=== PATIENT | female | born 1940 | race Caucasian/White ===

== ENCOUNTER 2018-09-14 14:57 | Emergency (ER) | payer OTHER ==
[2018-09-14] MEDS ORDERED: HYDROCODONE/APAP 7.5/325 MG TAB ONE (17:13)
[2018-09-14 17:41] LABS: Absolute Lymphocytes (CBC) 2.6 K/uL (0.7-4.9); Absolute Monocytes 1.1 K/uL (0.1-1.3); Absolute Neutrophil 6.6 K/uL (1.8-8.0); Basophils % 0.8 % (0-1.3); Eosinophils % 2.9 % (0-4.4); Hematocrit 29.4 % (36.0-45.0); Lymphocytes % 24.1 % (15.3-44.8); MCH 27.1 pg (27.0-35.0); MCV 83.2 fL (80-100); MPV 8.5 fL (7.6-11.3); RBC Red Blood Cell Count 3.53 M/uL (3.86-4.86)
[2018-09-14 17:45] LABS: Potassium 4.7 mmol/L (3.5-5.1)
--- NOTE | 2018-09-14 18:05 | EDPHYS ---
Physician Documentation [facility] Name: Bonnie Good Age: 77 yrs Sex: Female : 1940 Arrival Date: 09/14/2018 Time: 14:58 Bed 2 Private MD: ED Physician Patrick Amin HPI: 09/14 17:13 This 77 yrs old Female presents to ER via Wheelchair with complaints of Femur jr8 Injury. 17:13 The patient presents with pain, that is acute, tenderness. The complaints affect the jr8 left quadriceps. Context: The problem was sustained at a [facility] or assisted living facility, resulted from the patient falling. Onset: The symptoms/episode began/occurred acutely, 4 day(s) ago. Modifying factors: The symptoms are alleviated by nothing. the symptoms are aggravated by movement. Associated signs and symptoms: The patient has no apparent associated signs or symptoms. Severity of symptoms: At their worst the symptoms were moderate, in the emergency department the symptoms are unchanged. The patient has not experienced similar symptoms in the past. The patient has not recently seen a physician. 17:14 Patient stated that she fell out of wheelchair onto her left knee directly. Pain since jr8 then with decreased ROM. Patient is a bilateral amputee. Was sent to ED for imaging and found to have femur fracture . Historical: - Allergies: 15:29 Aspirin; ph 15:29 PENICILLINS; ph - Home Meds: 18:40 Benadryl 25 mg Oral cap as needed [Active]; Cymbalta 60 mg Oral cpDR 1 cap twice a day iw [Active]; ergocalciferol (vitamin D2) 2,000 unit Oral tab daily [Active]; folic acid 1 mg Oral tab 1 tab once daily [Active]; Fosamax 70 mg Oral tab 1 tab once wkly [Active]; levothyroxine 75 mcg tab 1 tab once daily [Active]; multivit [Active]; Neurontin 800 mg Oral tab 1 tab 3 times per day [Active]; [place] 10-325 mg Oral tab 1 tab every 6 hours [Active]; Pepcid 20 mg Oral tab 1 tab once daily [Active]; potassium chloride 10 mEq Oral TbER 1 cap mon/wed/fri [Active]; vit D3 [Active]; Xanax 1 mg Oral tab 1 tab 3 times per day [Active]; zinc sulfate 220 mg Oral tab twice a day [Active]; - PMHx: 15:29 Anxiety; Cancer; neuropathy in hands; ph - PSHx: 15:29 right above the knee amputation; mouth CA removed; Cholecystectomy; Hysterectomy; Knee ph surgery; Breast biopsy; - Immunization history:: Adult Immunizations up to date. - Social history:: Smoking status: . - Ebola Screening: : Patient negative for fever greater than or equal to 101.5 degrees Fahrenheit, and additional compatible Ebola Virus Disease symptoms Patient denies exposure to infectious person Patient denies travel to an Ebola-affected area in the 21 days before illness onset No symptoms or risks identified at this time. ROS: 17:14 Constitutional: Negative for fever, chills, and weight loss. jr8 17:14 MS/extremity: Positive for decreased range of motion, pain, tenderness, of the left quadriceps. 17:14 All other systems are negative. Exam: 17:14 Head/Face: Normocephalic, atraumatic. Eyes: Pupils equal round and reactive to light, jr8 extra-ocular motions intact. Lids and lashes normal. Conjunctiva and sclera are non-icteric and not injected. Cornea within normal limits. Periorbital areas with no swelling, redness, or edema. ENT: Nares patent. No nasal discharge, no septal abnormalities noted. Tympanic membranes are normal and external auditory canals are clear. Oropharynx with no redness, swelling, or masses, exudates, or evidence of obstruction, uvula midline. Mucous membranes moist. Neck: Trachea midline, no thyromegaly or masses palpated, and no cervical lymphadenopathy. Supple, full range of motion without nuchal rigidity, or vertebral point tenderness. No Meningismus. Chest/axilla: Normal chest wall appearance and motion. Nontender with no deformity. No lesions are appreciated. Cardiovascular: Regular rate and rhythm with a normal S1 and S2. No gallops, murmurs, or rubs. Normal PMI, no JVD. No pulse deficits. Respiratory: Lungs have equal breath sounds bilaterally, clear to auscultation and percussion. No rales, rhonchi or wheezes noted. No increased work of breathing, no retractions or nasal flaring. Abdomen/GI: Soft, non-tender, with normal bowel sounds. No distension or tympany. No guarding or rebound. No evidence of tenderness throughout. Back: No spinal tenderness. No costovertebral tenderness. Full range of motion. Skin: Warm, dry with normal turgor. Normal color with no rashes, no lesions, and no evidence of cellulitis. Neuro: Awake and alert, GCS 15, oriented to person, place, time, and situation. Cranial nerves II-XII grossly intact. Motor strength 5/5 in all extremities. Sensory grossly intact. Cerebellar exam normal. Normal gait. 17:14 Musculoskeletal/extremity: Patients upper extremities within normal ROM and without pain or trauma. Left lower extremity with tenderness to mid femur region down to knee. Patient with normal sensation and motion. Pain with ROM. Left sided BKA present. Right leg with AKA but without pain. Normal sensation and ROM. Vital Signs: 15:29 BP 125 / 62; Pulse 71; Resp 18; Temp 97.8; Pulse Ox 95% on R/A; Weight 46.27 kg; ph 18:41 BP 123 / 50; Pulse 71; Resp 16; Pulse Ox 96% on R/A; Pain 5/10; iw 19:00 BP 120 / 60; Pulse 70; Resp 18; Temp 98; Pulse Ox 96% ; ea MDM: 16:28 Patient medically screened. jr8 17:14 Data reviewed: vital signs, nurses notes, radiologic studies, CT scan, plain films. jr8 Data interpreted: Pulse oximetry: on room air is 95 %. Interpretation: normal. Counseling: I had a detailed discussion with the patient and/or guardian regarding: the historical points, exam findings, and any diagnostic results supporting the discharge/admit diagnosis, radiology results, the need to transfer to another facility, for higher level of care, [facility] does not immediately have the required specialist. ED course: Consulted Dr. Perez about femur fracture. After reviewing images stated that the fracture is too complex to complete down here and will need to be transferred to trauma institute for further evaluation . 17:52 ED course: [facility] requesting Dr. Perez to Call them. I have attempted to Call Dr. Chris jaramillo to see if he can call the transfer center. Awaiting call by from Dr. Perez . 18:03 ED course: Talked to Dr. Nava at [place]. Accepted patient . jr8 09/14 17:14 Order name: CBC with Diff; Complete Time: 18:00 jr8 09/14 17:14 Order name: Basic Metabolic Panel; Complete Time: 17:51 jr8 09/14 17:14 Order name: IV; Complete Time: 17:53 jr8 Administered Medications: 17:08 Drug: [place] (7.5 mg-325 mg) 1 tabs Route: PO; iw 19:15 Follow up: Response: No adverse reaction; Pain is decreased ea 20:05 Drug: fentaNYL (PF) 25 mcg Route: IVP; Site: right wrist; ea 20:21 Follow up: Response: Medication administered at discharge. ea Disposition: 09/15 09:25 Co-signature as Attending Physician, Patrick Amin MD I agree with the assessment and ponce plan of care. Disposition: 09/14/18 18:05 Transfer ordered to [facility]. Diagnosis is Comminuted Distal Femur Fracture . - Reason for transfer: Higher level of care. - Accepting physician is Dr. Nava . - Condition is Stable. - Problem is new. - Symptoms have improved. Signatures: Dispatcher [employer] [facility] Patrick Amin MD MD cha Williams, Irene, RN RN Subhash Box PA PA jr8 Mariya Levy, RN RN Roselia Urias RN RN ea Corrections: (The following items were deleted from the chart) 09/14 17:37 17:05 Femur Left+RAD.RAD.BRZ ordered. [facility] 20:22 18:05 09/14/2018 18:05 Transfer ordered to [facility]. ea Diagnosis is Comminuted Distal Femur Fracture . Reason for transfer: Higher level of care. Accepting physician is Dr. Nava . Condition is Stable. Problem is new. Symptoms have improved. jr8
--- NOTE | 2018-09-14 18:05 | ER ---
Nurse's Notes [facility] Name: Bonnie Good Age: 77 yrs Sex: Female : 1940 Arrival Date: 09/14/2018 Time: 14:58 Bed 2 Private MD: Diagnosis: Comminuted Distal Femur Fracture Presentation: 09/14 15:25 Presenting complaint: Patient states: Pt fell approx 1 week ago at [facility], ph reports falling from wheelchair, sent today for outpatient CT and L femur fracture seen. Transition of care: patient was not received from another setting of care. Onset of symptoms was September 14, 2018. Risk Assessment: Do you want to hurt yourself or someone else? Patient reports no desire to harm self or others. Initial Sepsis Screen: Does the patient meet any 2 criteria? No. Patient's initial sepsis screen is negative. Does the patient have a suspected source of infection? No. Patient's initial sepsis screen is negative. Care prior to arrival: None. 15:25 Method Of Arrival: Wheelchair ph 15:25 Acuity: ANDREINA 3 ph Historical: - Allergies: 15:29 Aspirin; ph 15:29 PENICILLINS; ph - Home Meds: 18:40 Benadryl 25 mg Oral cap as needed [Active]; Cymbalta 60 mg Oral cpDR 1 cap twice a day iw [Active]; ergocalciferol (vitamin D2) 2,000 unit Oral tab daily [Active]; folic acid 1 mg Oral tab 1 tab once daily [Active]; Fosamax 70 mg Oral tab 1 tab once wkly [Active]; levothyroxine 75 mcg tab 1 tab once daily [Active]; multivit [Active]; Neurontin 800 mg Oral tab 1 tab 3 times per day [Active]; [place] 10-325 mg Oral tab 1 tab every 6 hours [Active]; Pepcid 20 mg Oral tab 1 tab once daily [Active]; potassium chloride 10 mEq Oral TbER 1 cap mon/wed/fri [Active]; vit D3 [Active]; Xanax 1 mg Oral tab 1 tab 3 times per day [Active]; zinc sulfate 220 mg Oral tab twice a day [Active]; - PMHx: 15:29 Anxiety; Cancer; neuropathy in hands; ph - PSHx: 15:29 right above the knee amputation; mouth CA removed; Cholecystectomy; Hysterectomy; Knee ph surgery; Breast biopsy; - Immunization history:: Adult Immunizations up to date. - Social history:: Smoking status: . - Ebola Screening: : Patient negative for fever greater than or equal to 101.5 degrees Fahrenheit, and additional compatible Ebola Virus Disease symptoms Patient denies exposure to infectious person Patient denies travel to an Ebola-affected area in the 21 days before illness onset No symptoms or risks identified at this time. Screenin:41 Abuse screen: Denies threats or abuse. Denies injuries from another. Nutritional iw screening: No deficits noted. Tuberculosis screening: No symptoms or risk factors identified. Fall Risk Fall in past 12 months (25 points). Assessment: 17:09 Reassessment: Patient appears in no apparent distress at this time. Patient and/or iw family updated on plan of care and expected duration. Pain level reassessed. Patient is alert, oriented x 3, equal unlabored respirations, skin warm/dry/pink. 18:41 Reassessment: Patient appears in no apparent distress at this time. Patient and/or iw family updated on plan of care and expected duration. Pain level reassessed. Patient is alert, oriented x 3, equal unlabored respirations, skin warm/dry/pink. Pain: Complains of pain in left quadriceps. 19:17 General: Appears in no apparent distress. Behavior is calm, cooperative, appropriate ea for age. Pain: Complains of pain in left quadriceps Pain currently is 4 out of 10 on a pain scale. Neuro: Level of Consciousness is awake, alert, obeys commands, Oriented to person, place, time, situation. Cardiovascular: Patient's skin is warm and dry. Respiratory: Airway is patent Respiratory effort is even, unlabored, Respiratory pattern is regular, symmetrical. GI: No signs and/or symptoms were reported involving the gastrointestinal system. Derm: Skin is fragile, Skin is pink, warm \T\ dry. Musculoskeletal: Pt has right and left BKA. 20:19 Reassessment: Patient and/or family updated on plan of care and expected duration. Pain ea level reassessed. Patient is alert, oriented x 3, equal unlabored respirations, skin warm/dry/pink. [facility] at facility for transfer. Pt left facility via stretcher. [facility] will be contacted to lease picker patients wheelchair. 20:39 Reassessment: Patient and/or family updated on plan of care and expected duration. Pain ea level reassessed. Patient is alert, oriented x 3, equal unlabored respirations, skin warm/dry/pink. Spoke to Alisa at [facility], about pt wheelchair. Reported he would have nurse take care of it. Vital Signs: 15:29 BP 125 / 62; Pulse 71; Resp 18; Temp 97.8; Pulse Ox 95% on R/A; Weight 46.27 kg; ph 18:41 BP 123 / 50; Pulse 71; Resp 16; Pulse Ox 96% on R/A; Pain 5/10; iw 19:00 BP 120 / 60; Pulse 70; Resp 18; Temp 98; Pulse Ox 96% ; ea ED Course: 14:58 Patient arrived in ED. as 15:28 Triage completed. ph 15:29 Arm band placed on Patient placed in an exam room. ph 15:52 Monica Lopes, JOLEEN is Primary Nurse. iw 16:28 Subhash Box PA is PHCP. jr8 16:28 Patrick Amin MD is Attending Physician. jr8 19:20 Patient has correct armband on for positive identification. Bed in low position. Call ea light in reach. Side rails up X2. 20:20 No provider procedures requiring assistance completed. Patient transferred, IV remains ea in place. Administered Medications: 17:08 Drug: [place] (7.5 mg-325 mg) 1 tabs Route: PO; iw 19:15 Follow up: Response: No adverse reaction; Pain is decreased ea 20:05 Drug: fentaNYL (PF) 25 mcg Route: IVP; Site: right wrist; ea 20:21 Follow up: Response: Medication administered at discharge. ea Outcome: 18:05 ER care complete, transfer ordered by . jr8 19:15 Instructed on the need for transfer. ea 20:21 Transferred by ground EMS to [facility], Transfer form completed. ea 20:21 Condition: stable 20:22 Patient left the ED. ea Signatures: Marielle Sharpe as Monica Lopes, JOLEEN RN iw Subhash Box PA PA jr8 Mariya Levy RN RN ph Roselia Urias RN RN ea Corrections: (The following items were deleted from the chart) 15:30 15:25 Acuity: ANDREINA 2 ph ph 19:20 19:17 Musculoskeletal: Amputation of ea ea
[2018-09-14] MEDS ORDERED: ONDANSETRON 4 MG/2 ML VIAL ONE (20:09)
[2018-09-14] MEDS ORDERED: FENTANYL CITR 100 MCG/2 ML ONE (20:10)
[2018-09-14 20:51] VITALS: O2SAT 96
[2018-09-14 20:52] VITALS: BP 120/60; TEMP 98
== END 2018-09-14 20:22 | disposition short-term general hospital (02) ==
LOC: ER 14:57
DX: S72.402A Unspecified fracture of lower end of left femur, initial encounter for closed fracture (principal); W05.0XXA Fall from non-moving wheelchair, initial encounter; Y92.199 Unspecified place in other specified residential institution as the place of occurrence of the external cause; F41.9 Anxiety disorder, unspecified; Z88.6 Allergy status to analgesic agent; Z88.0 Allergy status to penicillin; Z89.611 Acquired absence of right leg above knee; Z89.512 Acquired absence of left leg below knee
CPT/HCPCS: 36415; 73700; 80048; 85025; 96374; 99285; J3010; J2405

== ENCOUNTER 2018-12-14 16:16 | Inpatient (IN) | payer OTHER ==
--- OUTSIDE RECORDS SUMMARY | 2018-12-14 16:25 | XMS REPORT | CCD ---
:1940 Author Organization [facility] Care Team Providers Name Role Phone Federico Wisdom Referring Provider Allergies, Adverse Reactions, Alerts Substance Reaction Status aspirin Active penicillins Active Problem List Condition Effective Dates Status Bronchitis Resolved Heart disease Resolved Hypothyroid Resolved L AKA Resolved Left foot pain Resolved Pancreas Resolved Peripheral pulmonary artery disease Active Medications Medication Instructions Start Date End Date Status Plavix 75 mg, 1 tab, Route: PO, 04/27/2013 04/27/2013 Canceled Drug form: TAB, Daily, Dosing Weight 54.545, kg, Start date: 04/27/13 9:00:00, Duration: 30 day, Stop date: 05/26/13 9:00:00 folic acid 1 mg oral 1 mg, 1 tab, PO, Daily, 04/26/2013 Suspended tablet 30 tab, Substitution Allowed, TAB [place] 10/325 oral tablet 1 tab, Route: PO, Drug 04/26/2013 04/27/2013 Discontinued Form: TAB, Dosing Weight 54.545, kg, Q4H, PRN Pain, Start date: 04/26/13 11:52:00, Duration: 30 day, Stop date: 05/26/13 11:51:00 Melatonin 3 mg oral tablet 3 mg, 1 tab, PO, 04/26/2013 Suspended Bedtime, PRN, 60 tab, for insomnia, Substitution Allowed, Maintenance, TAB [place] 10/325 oral tablet 1 tab, PO, BID, PRN, as 04/26/2013 04/26/2013 Discontinued needed for pain, Substitution Allowed, Maintenance, TAB [place] 400 mg oral 400 mg, 1 tab, PO, 04/26/2013 Suspended tablet, extended release Daily, Substitution Allowed, TAB nitroglycerin 0.4 mg, SL, Q5Min, 04/26/2013 04/26/2013 Suspended Substitution Allowed, TAB Pepcid 20 mg oral tablet 20 mg, 1 tab, PO, Daily, 04/26/2013 Suspended Substitution Allowed, TAB [place] 10/325 oral tablet 1 tab, Route: PO, Drug 04/26/2013 04/26/2013 Completed Form: MARTIR, Dosing Weight 54.545, kg, ONCE, PRN Pain, Start date: 04/26/13 14:48:00 Tylenol 500 mg, PO, Q4H, PRN, as 04/26/2013 Suspended needed for pain, Substitution Allowed, TAB Plavix 75 mg oral tablet 75 mg, 1 tab, PO, Daily, 04/26/2013 Ordered 30 tab, Substitution Allowed, TAB [place] 10/325 oral tablet 1 tab, PO, BID, PRN, 30 04/26/2013 Ordered tab, as needed for pain, Substitution Allowed, Maintenance, TAB Skelaxin 800 mg oral 400 mg, 0.5 tab, PO, 04/26/2013 Suspended tablet QID, Substitution Allowed, TAB multivitamin 1 tab, PO, Daily, 04/26/2013 Suspended Substitution Allowed, Maintenance, TAB Neurontin 800 mg oral 800 mg, 1 tab, PO, TID, 04/26/2013 Suspended tablet 90 tab, Substitution Allowed Plavix 75 mg oral tablet 75 mg, 1 tab, PO, Daily, 04/26/2013 04/26/2013 Discontinued 30 tab, Substitution Allowed, TAB levothyroxine 75 mcg 75 microgram, 1 tab, PO, 04/26/2013 Suspended (0.075 mg) oral tablet Daily, 30 tab, Substitution Allowed, TAB Vital Signs Most recent to oldest 1 2 3 [Reference Range]: Height 180.34 cm (04/26/2013 08:05:00) Systolic Blood Pressure 125 mmHg 124 mmHg 140 mmHg [90-140 mmHg] (04/26/2013 16:45:00) (04/26/2013 16:00:00) (04/26/2013 15:30: 00) Diastolic Blood Pressure 55 mmHg 55 mmHg 64 mmHg [60-90 mmHg] *LOW* *LOW* (04/26/2013 15:30:00) (04/26/2013 16:45:00) (04/26/2013 16:00:00) Respiratory Rate [14-20 18 BRMIN 17 BRMIN 19 BRMIN BRMIN] (04/26/2013 16:45:00) (04/26/2013 16:00:00) (04/26/2013 15:30:00) Peripheral Pulse Rate 70 bpm 70 bpm [60-100 bpm] (04/26/2013 08:57:00) (04/26/2013 08:30:00) Weight 54.545 kg (04/26/2013 08:05:00) Results BLOOD BANK RESULTS Most recent to oldest [Reference Range]: 1 ABO/Rh A POS *Unknown* (04/26/2013 08:53:00) Antibody Scrn Negative (04/26/2013 08:53:00) CHEMISTRY Most recent to oldest [Reference Range]: 1 Sodium Lvl [135-145 mEq/L] 140 mEq/L (04/26/2013 08:20:00) Potassium Lvl [3.5-5.1 mEq/L] 3.9 mEq/L (04/26/2013 08:20:00) Chloride Lvl [95-109 mEq/L] 105 mEq/L (04/26/2013 08:20:00) CO2 [24-32 mEq/L] 32 mEq/L (04/26/2013 08:20:00) AGAP [10.0-20.0 mEq/L] 6.9 mEq/L *LOW* (04/26/2013 08:20:00) Creatinine Lvl [0.5-1.4 mg/dL] 0.6 mg/dL (04/26/2013 08:20:00) eGFR 91 mL/min/1.73m2 1 *NA* (04/26/2013 08:20:00) BUN [7-22 mg/dL] 7 mg/dL (04/26/2013 08:20:00) Glucose Lvl [70-99 mg/dL] 88 mg/dL 2 (04/26/2013 08:20:00) Calcium Lvl [8.5-10.5 mg/dL] 9.4 mg/dL (04/26/2013 08:20:00) Hgb A1C [<=5.6 %] 5.5 % 3 (04/26/2013 08:20:00) 1Result Comment: The eGFR is calculated using the CKD-EPI formula. In most young , healthy individualsthe eGFR will be >90 mL/min/1.73m2. The eGFR declines with age. An eGFR of 60-89 may be normal in some populations, particularly the elderly, for whom the CKD-EPI formula has not been extensively validated. Use of the eGFR is not recommended in the following populations: Individuals with unstable creatinine concentrations, including patients and those with serious co-morbid conditions. Patients with extremes in muscle mass or diet. The data above are obtained from the National Kidney Disease Education Program ( NKDEP) which additionally recommends that when the eGFR is used in patients with extremes of body mass index for purposesof drug dosing, the eGFR should be multiplied by the estimated BMI.2Interpretive Data: Adult reference range values reflect the clinical guidelines of the [place] [employer].3Interpretive Data: The reference range is based on the clinical practice guidelines of the [place] [employer] for diabetes screening; levels of 5.7%-6.4% are indicative of pre-diabetes.HEMATOLOGY Most recent to oldest [Reference Range]: 1 WBC [3.7-10.4 K/CMM] 6.6 K/CMM (04/26/2013 08:20:00) RBC [4.20-5.40 M/CMM] 4.15 M/CMM *LOW* (04/26/2013 08:20:00) Hgb [12.0-16.0 g/dL] 12.7 g/dL (04/26/2013 08:20:00) Hct [36.0-48.0 %] 37.5 % (04/26/2013 08:20:00) MCV [81.0-99.0 fL] 90.5 fL (04/26/2013 08:20:00) MCH [27.0-31.0 pg] 30.5 pg (04/26/2013:20:00) MCHC [32.0-36.0 g/dL] 33.8 g/dL (04/26/2013 08:20:00) RDW [11.5-14.5 %] 13.4 % (04/26/2013:20:00) Platelet [133-450 K/CMM] 274 K/CMM (04/26/2013 08:20:00) MPV [7.4-10.4 fL] 7.7 fL (04/26/2013 08:20:00) Segs [45.0-75.0 %] 62.4 % (04/26/2013 08:20:00) Lymphocytes [20.0-40.0 %] 23.3 % (04/26/2013 08:20:00) Monocytes [2.0-12.0 %] 9.3 % (04/26/2013 08:20:00) Eosinophils [0.0-4.0 %] 3.8 % (04/26/2013 08:20:00) Basophils [0.0-1.0 %] 1.2 % *HI* (04/26/2013 08:20:00) Segs-Bands # [1.5-8.1 K/CMM] 4.1 K/CMM (04/26/2013 08:20:00) Lymphocytes # [1.0-5.5 K/CMM] 1.5 K/CMM (04/26/2013 08:20:00) Monocytes # [0.0-0.8 K/CMM] 0.6 K/CMM (04/26/2013 08:20:00) Eosinophils # [0.0-0.5 K/CMM] 0.2 K/CMM (04/26/2013 08:20:00) Basophils # [0.0-0.2 K/CMM] 0.1 K/CMM (04/26/2013 08:20:00) PT [12.0-14.7 seconds] 13.2 seconds (04/26/2013 08:20:00) INR [0.85-1.17] 0.98 4 (04/26/2013 08:20:00) PTT [22.9-35.8 seconds] 27.9 seconds 5 (04/26/2013 08:20:00) 4Interpretive Data: RECOMMENDED RANGES FOR PROTIME INR: 2.0-3.0 for most medical and surgical thromboembolic states. 2.5-3.5 for artificial heart valves and recurrent embolism. INR SHOULD BE USED ONLY FOR PATIENTS ON STABLE ANTICOAGULANT THERAPY.5Interpretive Data: Heparin Therapeutic Range: 57 - 92 Seconds Procedures Procedures Date Related Diagnosis AKA - Above knee amputation Breast biopsy and related procedures Cataract surgery Cervical laminectomy Cystectomy Hysterectomy Mouth operation Pain control
--- OUTSIDE RECORDS SUMMARY | 2018-12-14 16:25 | XMS REPORT | CCD ---
:1940 Author Organization [facility] Care Team Providers Name Role Phone Federico Whitley Referring Provider Allergies, Adverse Reactions, Alerts Substance Reaction Status aspirin Active penicillins Active Problem List Condition Effective Dates Status AKA - Above knee amputation1 Resolved Bronchitis Resolved Heart disease Resolved Hypothyroid Resolved Left foot pain Resolved Pancreas Resolved Peripheral pulmonary artery disease Active PVD - Peripheral vascular disease Resolved 1right Medications Medication Instructions Start Date End Date Status fentanyl 50 microgram, 1 mL, Route: IVP, Drug form: INJ, Q4H, Dosing Weight 50 , kg, PRN as needed for pain, first dose now, Priority: STAT, Start date: 17:44:00, Duration: 30 day, Stop date: 01/28/14 17:43:00, Pediatric Dosing; For procedure; > 50 kg 12/29/2013 12/30/2013 Discontinued Pediatric Dosing; For procedure; > 50 kg(Same as: Sublimaze) Preservative free. potassium chloride 10 mEq, Daily, 0 12/27/2013 Ordered Refill(s) tramadol 50 mg oral 50 mg=1 tab, PO, Q6H, as 12/30/2013 Ordered tablet needed for pain, # 30 tab, 0 Refill(s) docusate sodium 100 mg 100 mg=1 cap, PO, BID, # 12/30/2013 Ordered oral capsule 60 cap, 0 Refill(s) Atkins 10/325 oral tablet 1 tab, Route: PO, Drug 12/27/2013 12/27/2013 Completed Form: TAB, Dosing Weight 50, kg, ONCE, Start date: 12/27/13 21:45:00, Stop date: 12/27/13 21:45:00Do not exceed 4gm/day of acetaminophen. (Same as: Atkins 325/10) clopidogrel 75 mg oral 75 mg=1 tab, PO, Daily, # 12/27/2013 Ordered tablet 90 tab, 0 Refill(s) zinc sulfate 220 mg oral 220 mg=1 tab, PO, Daily, 12/27/2013 Ordered tablet # 100 tab, 0 Refill(s) fentanyl 25 microgram, 0.5 mL, 12/29/2013 12/29/2013 Completed Route: IV, Drug form: INJ, ONCE, Dosing Weight 50, kg, Start date: 12/29/13 3:34:00, Stop date: 12/29/13 3:34:00(Same as: Sublimaze) Preservative free. Vitamin C 0 Refill(s) 12/27/2013 Ordered Lyrica 50 mg oral capsule 50 mg=1 cap, PO, Bedtime, 12/27/2013 Ordered 0 Refill(s) Vitamin C 500 mg, 1 tab, Route: PO, 12/28/2013 12/30/2013 Discontinued Drug form: TAB, Daily, Start date: 12/28/13 9:00:00, Duration: 30 day, Stop date: 01/26/14 9:00:00(Same as: Vitamin C) Fosamax 70 mg oral tablet 70 mg=1 tab, PO, Q7D, # 12/27/2013 Ordered 12 tab, 0 Refill(s) Dulcolax Laxative 10 mg, 2 tab, Route: PO, 12/29/2013 12/30/2013 Discontinued Drug form: ECTAB, Daily, Dosing Weight 50, kg, Start date: 12/29/13 9:00:00, Duration: 30 day, Stop date: 01/27/14 9:00:00(Same As: Dulcolax, Correctol) (Do Not Crush) "Do Not Crush" Melatonin 3 mg oral 3 mg, 1 tab, Route: PO, 12/27/2013 12/30/2013 Discontinued tablet Drug Form: TAB, Dosing Weight 50, kg, Bedtime, PRN Insomnia, Start date: 12/27/13 12:01:00, Duration: 30 day, Stop date: 01/26/14 12:00:00(Same as: Melatonin) Non-Formulary Drug pentoxifylline 400 mg, 1 tab, Route: PO, 12/28/2013 12/30/2013 Discontinued Drug form: ERTAB, Daily, Dosing Weight 50, kg, Start date: 12/28/13 9:00:00, Duration: 30 day, Stop date: 01/26/14 9:00:00Non-Formulary Drug. Do not crush or chew.(Same as: Trental) nitroglycerin 0.4 mg, 1 tab, Route: SL, 12/27/2013 12/30/2013 Discontinued Drug form: TAB, Q5Min, Dosing Weight 50, kg, PRN Chest Pain, Start date: 12/27/13 12:05:00, Duration: 3 doses or times, Stop date: 01/26/14 0:00:00(Same as:Nitroquick, Nitrostat)"Do Not Crush" Sublingual tablet trazodone 50 mg oral 50 mg, 1 tab, Route: PO, 12/27/2013 12/30/2013 Discontinued tablet Drug form: TAB, Bedtime, Dosing Weight 50, kg, Start date: 12/27/13 21:00:00, Duration: 30 day, Stop date: 01/25/14 21:00:00(Same As: Desyrel) zinc sulfate 220 mg, 1 cap, Route: PO, 12/28/2013 12/30/2013 Discontinued Drug form: CAP, Daily, Dosing Weight 50, kg, Start date: 12/28/13 9:00:00, Duration: 30 day, Stop date: 01/26/14 9:00:00(Zinc sulfate capsule) - 220 mg Zinc sulfate=50 mg elemental zinc Same as Zinc Sulfate Lyrica 50 mg, 1 cap, Route: PO, 12/27/2013 12/30/2013 Discontinued Drug form: CAP, Bedtime, Dosing Weight 50, kg, Start date: 12/27/13 21:00:00, Duration: 30 day, Stop date: 01/25/14 21:00:00Same as Lyrica potassium chloride 10 mEq, 1 tab, Route: PO, 12/28/2013 12/30/2013 Discontinued Drug form: ERTAB, Daily, Dosing Weight 50, kg, Start date: 12/28/13 9:00:00, Duration: 30 day, Stop date: 01/26/14 9:00:00(Same as: Klor-Con 10)"Do Not Crush" With food and full glass of water Creon 24,000 units oral 1 cap, Route: PO, Drug 12/27/2013 12/30/2013 Discontinued delayed release capsule Form: DRC, Dosing Weight 50, kg, TID, Start date: 12/27/13 13:00:00, Duration: 30 day, Stop date: 01/26/14 9:00:00Same as: Credenton DRC 24 : Amylase 120,000 units - Lipase 24,000 units - Protease 76,000 units multivitamin 1 tab, Route: PO, Drug 12/28/2013 12/30/2013 Discontinued Form: TAB, Dosing Weight 50, kg, Daily, Start date: 12/28/13 9:00:00, Duration: 30 day, Stop date: 01/26/14 9:00:00(Same as:Thera) Take with food. Fosamax 10 mg, 1 tab, Route: PO, 12/28/2013 12/30/2013 Discontinued Drug form: TAB, Q630AM, Start date: 12/28/13 6:30:00, Duration: 30 day, Stop date: 01/26/14 6:30:00Give 30 min before breakfast w/6oz water. Sit upright for 30 min after dose."Do Not Crush" (Same as: Fosamax) Xanax 1 mg oral tablet 1 mg=1 tab, PO, TID, 0 12/27/2013 Ordered Refill(s) Skelaxin 400 mg, 0.5 tab, Route: 12/27/2013 12/30/2013 Discontinued PO, Drug form: TAB, QID, Dosing Weight 50, kg, Start date: 12/27/13 13:00:00, Duration: 30 day, Stop date: 01/26/14 9:00:00(Same as: Skelaxin) levothyroxine 75 microgram, 1 tab, 12/28/2013 12/30/2013 Discontinued Route: PO, Drug form: TAB, Q630AM, Dosing Weight 50, kg, Start date: 12/28/13 6:30:00, Duration: 30 day, Stop date: 01/26/14 6:30:00Take 1 hour before or 2 hours after meal; Enteral feeds may interefere with the absorption of this medication. (Same as:Synthroid, Levothroid) Neurontin 800 mg oral 800 mg, 2 cap, Route: PO, 12/27/2013 12/30/2013 Discontinued tablet Drug form: CAP, TID, Dosing Weight 50, kg, Start date: 12/27/13 13:00:00, Duration: 30 day, Stop date: 01/26/14 9:00:00(Same as: Neurontin) folic acid 1 mg, 1 tab, Route: PO, 12/28/2013 12/30/2013 Discontinued Drug form: TAB, Daily, Dosing Weight 50, kg, Start date: 12/28/13 9:00:00, Duration: 30 day, Stop date: 01/26/14 9:00:00(Same as: Folvite) Pepcid 20 mg oral tablet 20 mg, 1 tab, Route: PO, 12/28/2013 12/30/2013 Discontinued Drug form: TAB, Daily, Dosing Weight 50, kg, Start date: 12/28/13 9:00:00, Duration: 30 day, Stop date: 01/26/14 9:00:00(Same as: Pepcid) Cymbalta 60 mg, 1 cap, Route: PO, 12/27/2013 12/30/2013 Discontinued Drug form: DRC, Q12H, Dosing Weight 50, kg, Start date: 12/27/13 21:00:00, Duration: 30 day, Stop date: 01/26/14 9:00:00Non Formulary Drug(Same as: Cymbalta) (Do Not Crush) calcium-vitamin D 500 1 tab, Route: PO, Drug 12/28/2013 12/30/2013 Discontinued mg-400 intl units oral Form: CHEWTAB, Dosing tablet, chewable Weight 50, kg, Daily, Start date: 12/28/13 9:00:00, Duration: 30 day, Stop date: 01/26/14 9:00:00(calcium carbonate-vit D 500mg-400unit chew TAB) Same as: Oscal 500+D clopidogrel 75 mg, 1 tab, Route: PO, 12/28/2013 12/30/2013 Discontinued Drug form: TAB, Daily, Dosing Weight 50, kg, Start date: 12/28/13 9:00:00, Duration: 30 day, Stop date: 01/26/14 9:00:00(Same As: Plavix) Vitamin C 50 mg, Route: CHEW, 12/28/2013 12/27/2013 Discontinued Daily, Dosing Weight 50, kg, Start date: 12/28/13 9:00:00, Duration: 30 day, Stop date: 01/26/14 9:00:00 Xanax 1 mg oral tablet 1 mg, 1 tab, Route: PO, 12/27/2013 12/30/2013 Discontinued Drug form: TAB, TID, Dosing Weight 50, kg, PRN Anxiety, Start date: 12/27/13 12:50:00, Duration: 30 day, Stop date: 01/26/14 12:49:00With food or milk(Same as: Xanax) Fosamax 70 mg, Route: PO, Drug 12/27/2013 12/27/2013 Discontinued form: TAB, Q7D, Dosing Weight 50, kg, Start date: 12/27/13 12:00:00, Duration: 30 day, Stop date: 01/24/14 9:00:00 melatonin 3 mg oral 3 mg=1 tab, PO, Bedtime, 12/27/2013 Ordered tablet for insomnia, # 60 tab, 0 Refill(s) Lovenox 40 mg, 0.4 mL, Route: 12/28/2013 12/30/2013 Discontinued SUB-Q, Drug form: INJ, [id number], Dosing Weight 50, kg, Start date: 12/28/13 18:00:00, Duration: 30 day, Stop date: 01/26/14 18:00:00(Same as: Lovenox) hydrALAZINE 10 mg, 0.5 mL, Route: 12/27/2013 12/27/2013 Discontinued IVP, Drug form: INJ, Q20Min, Dosing Weight 50, kg, PRN Elevated BP, Start date: 12/27/13 12:05:00, Duration: 2 doses or times, Stop date: 12/27/13 23:59:00(Same as: Apresoline)Push over 5 minutes enalaprilat 0.625 mg, 0.5 mL, Route: 12/27/2013 12/27/2013 Discontinued IVP, Drug form: INJ, Q5Min, Dosing Weight 50, kg, PRN Elevated BP, Start date: 12/27/13 12:05:00, Duration: 4 doses or times, Stop date: 12/27/13 23:59:00(Same as: Vasotec-IV) metoprolol 1 mg, 1 mL, Route: IVP, 12/27/2013 12/27/2013 Discontinued Drug form: INJ, Q5Min, Dosing Weight 50, kg, PRN Other -See Comment, Start date: 12/27/13 12:05:00, Duration: 5 doses or times, Stop date: 12/27/13 23:59:00(Same as: Lopressor)Push over 2 minutes fentanyl 50 microgram, 1 mL, 12/27/2013 12/27/2013 Discontinued Route: IVP, Drug form: INJ, Q5Min, Dosing Weight 50, kg, PRN Pain Score 7-10, Start date: 12/27/13 12:05:00, Duration: 2 doses or times, Stop date: Limited # of times(Same as: Sublimaze) Preservative free. naloxone 0.04 mg, 0.1 mL, Route: 12/27/2013 12/27/2013 Discontinued IVP, Drug form: INJ, Q2MIN, Dosing Weight 50, kg, PRN Narcotic Reversal, Start date: 12/27/13 12:05:00, Duration: 8 doses or times, Stop date: 12/27/13 23:59:00(Same as: Narcan) hydromorphone 0.5 mg, 0.25 mL, Route: 12/27/2013 12/27/2013 Discontinued IVP, Drug form: INJ, Q5Min, Dosing Weight 50, kg, PRN Pain Score 7-10, Start date: 12/27/13 12:05:00, Duration: 4 doses or times, Stop date: 12/27/13 23:59:00Same as: Dilaudid flumazenil 0.2 mg, 2 mL, Route: IVP, 12/27/2013 12/27/2013 Discontinued Drug form: INJ, PRN, Dosing Weight 50, kg, PRN Benzodiazepine Reversal, Initial dose, Start date: 12/27/13 12:05:00, Stop date: 12/27/13 23:59:00(Same as: Romazicon) ondansetron 4 mg, 2 mL, Route: IVP, 12/27/2013 12/27/2013 Discontinued Drug form: INJ, ONCE, Dosing Weight 50, kg, PRN Nausea & Vomiting, Start date: 12/27/13 12:05:00(Same as: Zofran) Cymbalta 60 mg oral 60 mg=1 cap, PO, BID, # 12/27/2013 Ordered delayed release capsule 30 cap, 0 Refill(s) fentanyl 25 microgram, 0.5 mL, 12/28/2013 12/28/2013 Discontinued Route: IV, Drug form: INJ, ONCE, Dosing Weight 50, kg, Start date: 12/28/13 22:40:00, Stop date: 12/28/13 22:40:00(Same as: Sublimaze) Preservative free. fentanyl 25 microgram, 0.5 mL, 12/28/2013 12/28/2013 Completed Route: IV, Drug form: INJ, ONCE, Dosing Weight 50, kg, Start date: 12/28/13 22:38:00, Stop date: 12/28/13 22:38:00(Same as: Sublimaze) Preservative free. ceFAZolin 2 gm, Route: IVPB, ONCE, 12/27/2013 12/27/2013 Completed Dosing Weight 50, kg, Start date: 12/27/13 10:28:00, Duration: 1 doses or times, Stop date: 12/27/13 10:28:00 docusate 100 mg, 1 cap, Route: PO, 12/27/2013 12/30/2013 Discontinued Drug form: CAP, BID, Dosing Weight 50, kg, Start date: 12/27/13 17:00:00, Duration: 30 day, Stop date: 01/26/14 9:00:00(Same as: Colace) (Do Not Crush) ondansetron 4 mg, 2 mL, Route: IVP, 12/27/2013 12/30/2013 Discontinued Drug form: INJ, ONCE, Dosing Weight 50, kg, PRN Nausea & Vomiting, Start date: 12/27/13 11:59:00(Same as: Zofran) acetaminophen 650 mg, 2 tab, Route: PO, 12/27/2013 12/30/2013 Discontinued Drug form: TAB, Q4H, Dosing Weight 50, kg, PRN Pain 1-3/Temp > 100.4 F, Start date: 12/27/13 11:59:00, Duration: 30 day, Stop date: 01/26/14 11:58:00Do not exceed 4 gm/day. (Same as: Tylenol) trazodone 50 mg oral 50 mg=1 tab, PO, QPM, # 12/27/2013 Ordered tablet 90 tab, 0 Refill(s) tramadol 50 mg oral 50 mg, 1 tab, Route: PO, 12/27/2013 12/30/2013 Discontinued tablet Drug form: TAB, Q6H, Dosing Weight 50, kg, PRN as needed for pain, Start date: 12/27/13 18:58:00, Duration: 30 day, Stop date: 01/26/14 18:57:00Not to exceed 400mg/day. (Same As: Ultram) Creon 24,000 units oral 0 Refill(s) 12/27/2013 Ordered delayed release capsule calcium-vitamin D 600 1 tab, PO, Daily, # 60 12/27/2013 Ordered mg-400 intl units oral tab, 0 Refill(s) tablet Vital Signs Most recent to oldest 1 2 3 [Reference Range]: Height 160.02 cm (12/27/2013 15:28:00) Temperature Oral 98.9 DegF 98.7 DegF 99.3 DegF [96.4-99.1 DegF] (12/30/2013 11:09:00) (12/30/2013 09:40:00) *HI* (12/30/2013 07:10:00) Systolic Blood Pressure 106 mmHg 110 mmHg 111 mmHg [90-140 mmHg] (12/30/2013 11:49:00) (12/30/2013 09:40:00) (12/30/2013 06:00: 00) Diastolic Blood Pressure 59 mmHg 52 mmHg 51 mmHg [60-90 mmHg] *LOW* *LOW* *LOW* (12/30/2013 11:49:00) (12/30/2013 09:40:00) (12/30/2013 06:00:00) Respiratory Rate [14-20 20 BRMIN 18 BRMIN 18 BRMIN BRMIN] (12/30/2013 11:49:00) (12/30/2013 04:00:00) (12/30/2013 02:00:00) Peripheral Pulse Rate 108 bpm [60-100 bpm] *HI* (12/27/2013 09:00:00) Weight 50 kg 50 kg (12/27/2013 15:28:00) (12/27/2013 09:28:00) Results BEDSIDE GLUCOSE TESTING Most recent to oldest 1 2 3 [Reference Range]: Glucose POC [70-99 116 mg/dL 1 103 mg/dL 2 127 mg/dL 3 mg/dL] *HI* *HI* *HI* (12/30/2013 12:03:00) (12/30/2013 07:55:00) (12/29/2013 20:41:00) Gluc POC Comment 1 Notified RN/MD Notified RN/MD Notified RN/MD *NA* *NA* *NA* (12/29/2013 20:41:00) (12/28/2013 07:40:00) (12/27/2013 22:40:00) 1Interpretive Data: Upper Reportable Limit: 200 mg/dL.2Interpretive Data: Upper Reportable Limit: 200 mg/dL.3Interpretive Data: Upper Reportable Limit: 200 mg/dL.URINALYSIS Most recent to oldest [Reference Range]: 1 2 3 UA Turbidity [Clear] Slight Cloudy (12/27/2013 12:40:12) UA Color [Yellow] Yellow *NA* (12/27/2013 12:40:12) UA pH [5.0-8.0] 6.0 (12/27/2013 12:40:12) UA Spec Grav [<=1.030] 1.010 (12/27/2013 12:40:12) UA Glucose [Negative] Negative (12/27/2013 12:40:12) UA Blood [Negative] Large *ABN* (12/27/2013 12:40:12) UA Ketones [Negative] Negative *NA* (12/27/2013 12:40:12) UA Protein [Negative mg/dL] 100 mg/dL *ABN* (12/27/2013 12:40:12) UA Urobilinogen [0.1-1.0 EU/dL] 0.2 EU/dL (12/27/2013 12:40:12) UA Bili [Negative] Negative *NA* (12/27/2013 12:40:12) UA Leuk Est [Negative] Moderate *ABN* (12/27/2013 12:40:12) UA Nitrite [Negative] Negative (12/27/2013 12:40:12) UA WBC [0-5 /HPF] 3-5 /HPF (12/27/2013 12:40:12) UA RBC [0-2 /HPF] 3-5 /HPF *ABN* (12/27/2013 12:40:12) UA Bacteria [None Seen /HPF] Moderate /HPF *ABN* (12/27/2013 12:40:12) UA Sq Epi [Few /LPF] Occasional /LPF (12/27/2013 12:40:12) UA Mucus [None Seen /LPF] Few /LPF (12/27/2013 12:40:12) BLOOD BANK RESULTS Most recent to oldest [Reference Range]: 1 2 3 ABO/Rh A POS *Unknown* (12/27/2013 09:09:00) Antibody Scrn Negative (12/27/2013 09:09:00) CHEMISTRY Most recent to oldest 1 2 3 [Reference Range]: Sodium Lvl [135-145 mEq/L] 136 mEq/L 132 mEq/L 133 mEq/L (12/29/2013 03:30:00) *LOW* *LOW* (12/28/2013 12:35:00) (12/27/2013 08:45:00) Potassium Lvl [3.5-5.1 4.4 mEq/L 4.5 mEq/L 5.3 mEq/L mEq/L] (12/29/2013 03:30:00) (12/28/2013 12:35:00) *HI* (12/27/2013 08:45:00) Chloride Lvl [95-109 mEq/L] 99 mEq/L 96 mEq/L 97 mEq/L (12/29/2013 03:30:00) (12/28/2013 12:35:00) (12/27/2013 08:45:00) CO2 [24-32 mEq/L] 27 mEq/L 28 mEq/L 31 mEq/L (12/29/2013 03:30:00) (12/28/2013 12:35:00) (12/27/2013 08:45:00) AGAP [10.0-20.0 mEq/L] 14.4 mEq/L 12.5 mEq/L 10.3 mEq/L (12/29/2013 03:30:00) (12/28/2013 12:35:00) (12/27/2013 08:45:00) Creatinine Lvl [0.5-1.4 0.4 mg/dL 0.6 mg/dL 0.7 mg/dL mg/dL] *LOW* (12/28/2013 12:35:00) (12/27/2013 08:45:00) (12/29/2013 03:30:00) eGFR 103 mL/min/1.73m2 4 90 mL/min/1.73m2 5 86 mL/min/1.73m2 6 *NA* *NA* *NA* (12/29/2013 03:30:00) (12/28/2013:35:00) (12/27/2013 08:45:00) BUN [7-22 mg/dL] 10 mg/dL 15 mg/dL 18 mg/dL (12/29/2013:30:00) (12/28/2013:35:00) (12/27/2013 08:45:00) B/C Ratio [6-25] 26 *HI* (12/27/2013 08:45:00) Glucose Lvl [70-99 mg/dL] 73 mg/dL 7 81 mg/dL 8 76 mg/dL 9 (12/29/2013:30:00) (12/28/2013 12:35:00) (12/27/2013 08:45:00) Total Protein [6.4-8.4 6.3 g/dL g/dL] *LOW* (12/27/2013 08:45:00) Albumin Lvl [3.5-5.0 g/dL] 2.2 g/dL *LOW* (12/27/2013 08:45:00) Globulin [2.0-4.0 g/dL] 4.1 g/dL *HI* (12/27/2013 08:45:00) A/G Ratio [0.7-1.6] 0.5 *LOW* (12/27/2013 08:45:00) Calcium Lvl [8.5-10.5 8.1 mg/dL 8.7 mg/dL 9.3 mg/dL mg/dL] *LOW* (12/28/2013 12:35:00) (12/27/2013 08:45:00) (12/29/2013 03:30:00) Phosphorus [2.5-4.5 mg/dL] 2.6 mg/dL 3.1 mg/dL (12/29/2013 03:30:00) (12/28/2013 12:35:00) Magnesium Lvl [1.8-2.4 1.7 mg/dL 1.7 mg/dL mg/dL] *LOW* *LOW* (12/29/2013:30:00) (12/28/2013 12:35:00) ALT [0-65 unit/L] 15 unit/L (12/27/2013:45:00) AST [0-37 unit/L] 21 unit/L (12/27/2013:45:00) Alk Phos [39-136 unit/L] 120 unit/L (12/27/2013:45:00) Bili Total [0.2-1.3 mg/dL] 0.4 mg/dL (12/27/2013:45:00) Hgb A1C [<=5.6 %] 4.4 % (12/27/2013:45:00) 4Result Comment: The eGFR is calculated using the [...] eGFR should be multiplied by the estimated BMI.5Result Comment: The eGFR is calculated using the CKD-EPI formula. In most young, healthy individualsthe eGFR will be >90 mL/ min/1.73m2. The eGFR declines with age. An eGFR [...] eGFR should be multiplied by the estimated BMI.6Result Comment: The eGFR is calculated using the CKD-EPI formula. In most young, healthy individualsthe eGFR will be >90 mL/ min/1.73m2. The eGFR declines with age. An eGFR [...] eGFR should be multiplied by the estimated BMI.7Interpretive Data: Adult reference range values reflect the clinical guidelines of the [place] [employer].8Interpretive Data: Adult reference range values reflect the clinical guidelines of the [place] [employer].9Interpretive Data: Adult reference range values reflect the clinical guidelines of the [place] [employer].HEMATOLOGY Most recent to oldest 1 2 3 [Reference Range]: WBC [3.7-10.4 K/CMM] 7.4 K/CMM 10.6 K/CMM 13.6 K/CMM (12/29/2013 03:30:00) *HI* *HI* (12/28/2013 12:35:00) (12/27/2013 12:40:07) RBC [4.20-5.40 M/CMM] 3.80 M/CMM 4.08 M/CMM 3.69 M/CMM *LOW* *LOW* *LOW* (12/29/2013 03:30:00) (12/28/2013 12:35:00) (12/27/2013 12:40:07) Hgb [12.0-16.0 g/dL] 11.2 g/dL 11.7 g/dL 10.5 g/dL *LOW* *LOW* *LOW* (12/29/2013 03:30:00) (12/28/2013 12:35:00) (12/27/2013 12:40:07) Hct [36.0-48.0 %] 33.5 % 35.9 % 32.3 % *LOW* *LOW* *LOW* (12/29/2013 03:30:00) (12/28/2013 12:35:00) (12/27/2013 12:40:07) MCV [81.0-99.0 fL] 88.1 fL 88.0 fL 87.4 fL (12/29/2013 03:30:00) (12/28/2013 12:35:00) (12/27/2013 12:40:07) MCH [27.0-31.0 pg] 29.5 pg 28.8 pg 28.5 pg (12/29/2013 03:30:00) (12/28/2013 12:35:00) (12/27/2013 12:40:07) MCHC [32.0-36.0 g/dL] 33.4 g/dL 32.7 g/dL 32.6 g/dL (12/29/2013 03:30:00) (12/28/2013 12:35:00) (12/27/2013 12:40:07) RDW [11.5-14.5 %] 17.4 % 17.8 % 16.8 % *HI* *HI* *HI* (12/29/2013 03:30:00) (12/28/2013 12:35:00) (12/27/2013 12:40:07) Platelet [133-450 K/CMM] 306 K/CMM 336 K/CMM 297 K/CMM (12/29/2013 03:30:00) (12/28/2013 12:35:00) (12/27/2013 12:40:07) MPV [7.4-10.4 fL] 7.9 fL 8.0 fL 7.5 fL (12/29/2013 03:30:00) (12/28/2013 12:35:00) (12/27/2013 12:40:07) Segs [45.0-75.0 %] 62.9 % 84.5 % 81.3 % (12/29/2013 03:30:00) *HI* *HI* (12/28/2013 12:35:00) (12/27/2013 12:40:07) Lymphocytes [20.0-40.0 %] 24.8 % 4.8 % 12.6 % (12/29/2013 03:30:00) *LOW* *LOW* (12/28/2013 12:35:00) (12/27/2013 12:40:07) Monocytes [2.0-12.0 %] 10.6 % 6.5 % 4.3 % (12/29/2013 03:30:00) (12/28/2013 12:35:00) (12/27/2013 12:40:07) Eosinophils [0.0-4.0 %] 1.2 % 1.9 % 0.9 % (12/29/2013 03:30:00) (12/28/2013 12:35:00) (12/27/2013 12:40:07) Basophils [0.0-1.0 %] 0.5 % 2.3 % 0.9 % (12/29/2013 03:30:00) *HI* (12/27/2013 12:40:07) (12/28/2013 12:35:00) Segs-Bands # [1.5-8.1 4.7 K/CMM 8.9 K/CMM 11.0 K/CMM K/CMM] (12/29/2013 03:30:00) *HI* *HI* (12/28/2013 12:35:00) (12/27/2013 12:40:07) Lymphocytes # [1.0-5.5 1.8 K/CMM 0.5 K/CMM 1.7 K/CMM K/CMM] (12/29/2013 03:30:00) *LOW* (12/27/2013 12:40:07) (12/28/2013 12:35:00) Monocytes # [0.0-0.8 K/CMM] 0.8 K/CMM 0.7 K/CMM 0.6 K/CMM (12/29/2013 03:30:00) (12/28/2013 12:35:00) (12/27/2013 12:40:07) Eosinophils # [0.0-0.5 0.1 K/CMM 0.2 K/CMM 0.1 K/CMM K/CMM] (12/29/2013 03:30:00) (12/28/2013 12:35:00) (12/27/2013 12:40:07) Basophils # [0.0-0.2 K/CMM] 0.2 K/CMM 0.1 K/CMM 0.1 K/CMM (12/28/2013 12:35:00) (12/27/2013 12:40:07) (12/27/2013 08:45:00) Polychrom [None Seen] Slight (12/28/2013 12:35:00) Elliptocyte [None Seen] Slight *ABN* (12/28/2013 12:35:00) Plt Morph See Note 10 (12/28/2013 12:35:00) PT [12.0-14.7 seconds] 13.1 seconds (12/27/2013 09:12:00) INR [0.85-1.17] 1.00 11 (12/27/2013 09:12:00) PTT [22.9-35.8 seconds] 27.7 seconds 12 (12/27/2013 09:12:00) 10Result Comment: Due to occassional clumps, the actual count may be slightly higher.11Interpretive Data: RECOMMENDED RANGES FOR PROTIME INR: 2.0-3.0 for most medical and surgical thromboembolic states. 2.5-3.5 for artificial heart valves and recurrent embolism. INR SHOULD BE USED ONLY FOR PATIENTS ON STABLE ANTICOAGULANT THERAPY.12Interpretive Data: Heparin Therapeutic Range: 57 - 92 Seconds Microbiology Reports PROCEDURE:Culture: Urine STATUS: Auth (Verified) BODY SITE: COLLECTED DATE/TIME: 12/27/2013 14:13:51 SOURCE: Urine, Clean Catch FREE TEXT SOURCE: FINAL REPORTS Final Filiwm18,000 - 50,000 CFU/mL Proteus mirabilis 10,000 - 50,000 CFU/mL Enterococcus SpeciesPRELIMINARY REPORTS Preliminary Onrgln71,000 - 50,000 CFU/mL Gram Negative Rods, Non-Lactose Fermenters Subculture In Progress Preliminary Ysgfxl35,000 - 50,000 CFU/mL Gram Negative Rods, Non-Lactose Fermenters , Identification And Sensitivity Pending 10,000 - 50,000 CFU/mL Enterococcus Species , Sensitivity Pending Preliminary ReportNo Growth; HoldingSUSCEPTIBILITY REPORT Enterococcus Species Antibiotic Vitek Dilution Vitek Interpretation Ampicillin Susceptible Levofloxacin Resistant Nitrofurantoin Susceptible Tetracycline Resistant Vancomycin Susceptible Proteus mirabilis Antibiotic Vitek Dilution Vitek Interpretation Amikacin Susceptible Ampicillin Resistant Ampicillin/Sulbactam Resistant Cefepime Resistant Ceftriaxone Resistant Gentamicin Susceptible Levofloxacin Resistant Meropenem Susceptible Nitrofurantoin Resistant Tetracycline Resistant Tobramycin Susceptible Trimethoprim/Sulfamethoxazole Resistant PROCEDURE:Culture: Urine STATUS: Auth (Verified) BODY SITE: COLLECTED DATE/TIME: 12/27/2013 12:40:00 SOURCE: Urine, Clean Catch FREE TEXT SOURCE: FINAL REPORTS Final Loeqdb45,000 - 50,000 CFU/mL Proteus mirabilis . 10,000 - 50,000 CFU/mL Enterococcus SpeciesPRELIMINARY REPORTS Preliminary ReportNo Growth; Holding Preliminary Jasmui60,000 - 50,000 CFU/mL Gram Negative Rods, Non-Lactose Fermenters Identification And Sensitivity Pending . 10,000 - 50,000 CFU/mL Enterococcus Species Sensitivity Pending Preliminary Pvgsvk60,000 - 50,000 CFU/mL Proteus mirabilis Sensitivity Pending . 10,000 - 50,000 CFU/mL Enterococcus SpeciesSUSCEPTIBILITY REPORT Enterococcus Species Antibiotic Vitek Dilution Vitek Interpretation Ampicillin Susceptible Levofloxacin Resistant Nitrofurantoin Susceptible Tetracycline Resistant Vancomycin Susceptible Proteus mirabilis Antibiotic INTERP CORA Amikacin Susceptible <=16 Ampicillin Resistant >16 Ampicillin/Sulbactam Resistant >16/8 Cefepime Susceptible <=4 Ceftriaxone Susceptible <=8 Gentamicin Susceptible <=4 Levofloxacin Resistant >4 Meropenem Susceptible <=1 Nitrofurantoin Intermediate 64 Piperacillin/Tazobactam Susceptible <=16 Tetracycline Resistant >8 Tobramycin Susceptible <=4 Trimethoprim/Sulfamethoxazole Resistant >2/38
--- OUTSIDE RECORDS SUMMARY | 2018-12-14 16:25 | XMS REPORT | Summary of Care ---
:1940 Author Encounter [facility](CHRISTIANO) [id number] Date(s): 07/15/14 - 07/15/[address] Discharge Disposition: Home Physician Attending: Oliver Sarkar MD Physician Admitting: Oliver Sarkar MD Physician_Referring: lOiver Sarkar MD Reason for Visit LEFT TIBIA BIMALLEOLAR FRACTURE Vital Signs Most recent to oldest 1 2 3 [Reference Range]: Height 172.72 cm 172.72 cm (07/15/14 6:05 AM) (07/13/14 1:33 PM) Systolic Blood Pressure 119 mmHg 106 mmHg 112 mmHg [90-140 mmHg] (07/15/14 10:49 AM) (07/15/14 10:30 AM) (07/15/14 10:15 AM) Diastolic Blood Pressure 53 mmHg 51 mmHg 50 mmHg [60-90 mmHg] *LOW* *LOW* *LOW* (07/15/14 10:49 AM) (07/15/14 10:30 AM) (07/15/14 10:15 AM) Respiratory Rate [14-20 16 BRMIN 14 BRMIN 16 BRMIN BRMIN] (07/15/14 10:49 AM) (07/15/14 10:30 AM) (07/15/14 10:15 AM) Peripheral Pulse Rate 75 bpm 67 bpm [60-100 bpm] (07/15/14 10:49 AM) (07/15/14 6:05 AM) Weight 45.455 kg 45.455 kg (07/15/14 6:05 AM) (07/13/14 1:33 PM) Body Mass Index 15.24 m2 15.24 m2 (07/15/14 6:05 AM) (07/13/14 1:33 PM) Problem List Condition Effective Dates Status Health Status Informant AKA - Above knee Resolved amputation(Confirmed)1 Fracture(Confirmed)2 Active Heart disease(Confirmed) Active Hypothyroid(Confirmed) Active Left foot pain(Confirmed) Active Meningioma(Confirmed) Resolved Pancreas(Confirmed)3 Resolved Peripheral pulmonary artery Active disease(Confirmed) PVD - Peripheral vascular Active disease(Confirmed) [id number] fibula left leg3pt. unaware of this problem Allergies, Adverse Reactions, Alerts Substance Reaction Severity Status aspirin Active penicillins Active Medications Ativan 1 mg, Route: IVP, Drug form: INJ, ONCE, Dosing Weight 45.455, kg, PRN Anxiety, Start date: 07/15/14 9:42:00 Start Date: 07/15/14 Stop Date: 07/15/14 Status: Completedflumazenil 0.2 mg, 2 mL, Route: IVP, Drug form: INJ, PRN, Dosing Weight 45.455, kg, PRN Benzodiazepine Reversal, Initial dose, Start date: 07/15/14 9:02:00, Duration: 5 doses or times, Stop date: 07/16/14 0:00:00 Notes: (Same as: Romazicon) Start Date: 07/15/14 Stop Date: 07/16/14 Status: Completedgabapentin 600 mg, Route: PO, Drug form: TAB, ONCE, Dosing Weight 45.455, kg, Start date: 07/15/14 9:38:00, Stop date: 07/15/14 9:38:00 Start Date: 07/15/14 Stop Date: 07/15/14 Status: Completedhydromorphone 0.4 mg, 0.2 mL, Route: IV, Drug form: INJ, ONCE, Dosing Weight 45.455, kg, PRN Pain, Start date: 07/15/14 9:28:00 Notes: Same as: Dilaudid Start Date: 07/15/14 Stop Date: 07/16/14 Status: Discontinuednaloxone 0.04 mg, 0.1 mL, Route: IVP, Drug form: INJ, Q2MIN, Dosing Weight 45.455, kg, PRN Narcotic Reversal,Start date: 07/15/14 9:02:00, Duration: 8 doses or times, Stop date: 07/16/14 0:00:00 Notes: (Same as: Narcan) Start Date: 07/15/14 Stop Date: 07/16/14 Status: Completedondansetron 4 mg, 2 mL, Route: IVP, Drug form: INJ, ONCE, Dosing Weight 45.455, kg, PRN Nausea & Vomiting, Start date: 07/15/14 9:02:00 Notes: (Same as: Zofran) Start Date: 07/15/14 Stop Date: 07/16/14 Status: Discontinuedvancomycin 1 gm, Route: IV, Drug form: INJ, ONCE, Dosing Weight 45.455, kg, Start date: 6:15:00, Stop date: 07/15/14 6:15:00 Notes: (Same As: Vancocin) Infusion rate< 1000 mg: infuse over 1 [id number] - 1500 mg: infuse over1.5 [id number] - 2000 mg: infuse over 2 hours> 2001 mg: infuse over 2.5 hours Start Date: 07/15/14 Stop Date: 07/15/14 Status: OrderedVicoprofen 7.5 mg-200 mg oral tablet 1 tab, Route: PO, Drug Form: TAB, Dosing Weight 45.455, kg, Q4H, PRN Pain Score 4-6, Start date: 07/15/14 9:03:00, Duration: 30 day, Stop date: 08/14/14 9:02:00 Notes: (Same as: Vicoprofen) Start Date: 07/15/14 Stop Date: 07/16/14 Status: Discontinued Results ELECTROLYTES Most recent to oldest [Reference Range]: 1 Sodium Lvl [135-145 mEq/L] 139 mEq/L (07/13/14 10:40 AM) Potassium Lvl [3.5-5.1 mEq/L] 4.3 mEq/L (07/13/14 10:40 AM) Chloride Lvl [95-109 mEq/L] 103 mEq/L (07/13/14 10:40 AM) CO2 [24-32 mEq/L] 28 mEq/L (07/13/14 10:40 AM) AGAP [10.0-20.0 mEq/L] 12.3 mEq/L (07/13/14 10:40 AM) CHEM PANEL Most recent to oldest [Reference Range]: 1 Creatinine Lvl [0.5-1.4 mg/dL] 0.6 mg/dL (07/13/14 10:40 AM) eGFR 90 mL/min/1.73m2 1 *NA* (07/13/14 10:40 AM) BUN [7-22 mg/dL] 12 mg/dL (07/13/14 10:40 AM) Glucose Lvl [70-99 mg/dL] 64 mg/dL 2 *LOW* (07/13/14 10:40 AM) Calcium Lvl [8.5-10.5 mg/dL] 8.9 mg/dL (07/13/14 10:40 AM) 1Result Comment: The eGFR is calculated using [...] values reflect the clinical guidelines of the [employer].SPECIAL CHEMISTRY Most recent to oldest [Reference Range]: 1 Hgb A1C [<=5.6 %] 5.1 % (07/13/14 10:40 AM) IMMUNOLOGY Most recent to oldest [Reference Range]: 1 CRP [<=2.9 mg/L] 5.5 mg/L *HI* (07/13/14 10:40 AM) HEMATOLOGY Most recent to oldest [Reference Range]: 1 WBC [3.7-10.4 K/CMM] 6.4 K/CMM (07/13/14 10:40 AM) RBC [4.20-5.40 M/CMM] 3.91 M/CMM *LOW* (07/13/14 10:40 AM) Hgb [12.0-16.0 g/dL] 11.7 g/dL *LOW* (07/13/14 10:40 AM) Hct [36.0-48.0 %] 34.9 % *LOW* (07/13/14 10:40 AM) MCV [80.0-98.0 fL] 89.2 fL (07/13/14 10:40 AM) MCH [27.0-31.0 pg] 29.9 pg (07/13/14 10:40 AM) MCHC [32.0-36.0 g/dL] 33.5 g/dL (07/13/14 10:40 AM) RDW [11.5-14.5 %] 15.7 % *HI* (07/13/14 10:40 AM) Platelet [133-450 K/CMM] 280 K/CMM (07/13/14 10:40 AM) MPV [7.4-10.4 fL] 8.5 fL (07/13/14 10:40 AM) Segs [45.0-75.0 %] 43.1 % *LOW* (07/13/14 10:40 AM) Lymphocytes [20.0-40.0 %] 43.7 % *HI* (07/13/14 10:40 AM) Monocytes [2.0-12.0 %] 8.7 % (07/13/14 10:40 AM) Eosinophils [0.0-4.0 %] 3.4 % (07/13/14 10:40 AM) Basophils [0.0-1.0 %] 1.1 % *HI* (07/13/14 10:40 AM) Segs-Bands # [1.5-8.1 K/CMM] 2.7 K/CMM (07/13/14 10:40 AM) Lymphocytes # [1.0-5.5 K/CMM] 2.8 K/CMM (07/13/14 10:40 AM) Monocytes # [0.0-0.8 K/CMM] 0.6 K/CMM (07/13/14 10:40 AM) Eosinophils # [0.0-0.5 K/CMM] 0.2 K/CMM (07/13/14 10:40 AM) Basophils # [0.0-0.2 K/CMM] 0.1 K/CMM (07/13/14 10:40 AM) Sed Rate [0-20 mm/hr] 8 mm/hr (07/13/14 10:40 AM) PT [12.0-14.7 seconds] 14.2 seconds (07/13/14 10:40 AM) INR [0.85-1.17] 1.09 3 (07/13/14 10:40 AM) PTT [22.9-35.8 seconds] 32.4 seconds 4 (07/13/14 10:40 AM) R-time [5.0-10.0 minutes] 4.7 minutes *LOW* (07/13/14 10:40 AM) K-time [1.0-3.0 minutes] 1.1 minutes (07/13/14 10:40 AM) Angle [53.0-72.0 degrees] 74.0 degrees *HI* (07/13/14 10:40 AM) Max Amp [50.0-70.0 mm] 58.6 mm (07/13/14 10:40 AM) G-value [4.5-11.0 K d/sc] 7.1 K d/sc (07/13/14 10:40 AM) Ly30 [0.0-7.5 %] 4.2 % (07/13/14 10:40 AM) Coag Index [-3.0-3.0] 1.5 (07/13/14 10:40 AM) TEG Interp Thrombelastograph results show shortened value of R and increased value of Angle Alpha. These findings are suggestive of enzymatic hypercoagulation. CPT:46027 *NA* (07/13/14 10:40 AM) TEG Data See Note 5 (07/13/14 10:40 AM) 3Interpretive Data: RECOMMENDED RANGES FOR PROTIME INR: 2.0-3.0 for most medical and surgical thromboembolic states. 2.5-3.5 for artificial heart valves and recurrent embolism. INR SHOULD BE USED ONLY FOR PATIENTS ON STABLE ANTICOAGULANT THERAPY.4Interpretive Data: Heparin Therapeutic Range: 57 - 92 [id number] Data: Normal ranges are for citrated whole blood with kaolin activator. R TIME: Reflects the degree of anti-coagulation due to LMWH, unfractionated heparin, and coumadin as well as non-specific factor deficiencies. K TIME, ALPHA ANGLE, AND MA(MAX AMPLITUDE): Have been associated with the platelet release reaction and fibrin polymer formation. These parameters assess the speed of clot formation and the tensil strength of the clot. Higher levels are associated with hypercoagulable states. G VALUE: Another measure of clot strength. LY30: Percent lysis in 30 Minutes is associated with the degree of fibrinolysis. CI or COAG INDEX: A calculation from the above measured data indicating an overall hyper or hypo coagulability with values above (plus) +3.0 being relatively hypercoagulable and those below (minus) -3.0 being relatively hypocoagulable. These measurements are functional in nature with many variables and require close clinical correlation. Thromboelasography (TEG) is mostly used to monitor significant coagulopathy in trauma patients or surgical patients. It assesses gloabal (primary and secondary) hemostasis using whole blood and therefore, not expected to correlate well with conventional coagulation tests. TEG results need to be correlated with clinical evaluation for patient management. Medications Administered During Your Visit No data available for this section Immunizations No data available for this section Social History Social History Type Response Alcohol Use: Past Smoking Status Current every day smoker, Type: Cigarettes, Previous treatment: None, Ready to change: No, Concerns about tobacco use in household: Yes, Exposure to Tobacco Smoke Lives with someone who smokes, Cigarette Smoking Last 365 Days Yes, Reg Smoking Cessation Counseling Yes
--- OUTSIDE RECORDS SUMMARY | 2018-12-14 16:26 | XMS REPORT | Summary of Care ---
:1940 Author Organization [facility] Address [address] [place] [id number]- Encounter [facility] [place](CHRISTIANO) [id number] Date(s): 06/02/15 - 06/06/[address] Professional Services provided by [facility] [place] [address]- Final: Discharge Disposition: [facility] Facility Attending Physician: Federico Wisdom MD Admitting Physician: Federico Wisdom MD Referring Physician: Federico Wisdom MD Vital Signs Most recent to oldest [Reference Range]: 1 2 3 Height 177.8 cm 170.18 cm (06/02/15 1:37 PM) (06/01/15 8:29 PM) Most recent to oldest 1 2 3 [Reference Range]: Temperature Oral [96.4-99.1 98.1 DegF 97.4 DegF 98.0 DegF DegF] (06/06/15 8:00 PM) (06/06/15 4:00 PM) (06/06/15 11:05 AM) Most recent to oldest 1 2 3 [Reference Range]: Blood Pressure [90-140/60-90 154/67 mmHg 152/67 mmHg 145/66 mmHg mmHg] *HI* *HI* *HI* (06/06/15 9:00 PM) (06/06/15 6:00 PM) (06/06/15 5:00 PM) Most recent to oldest 1 2 3 [Reference Range]: Respiratory Rate [14-20 BRMIN] 20 BRMIN 18 BRMIN 20 BRMIN (06/06/15 9:00 PM) (06/06/15 6:29 AM) (06/06/15 4:00 AM) Most recent to oldest [Reference Range]: 1 2 3 Weight 53.182 kg 54.545 kg (06/02/15 1:37 PM) (06/01/15 8:29 PM) Most recent to oldest [Reference Range]: 1 2 3 Body Mass Index 16.82 m2 18.83 m2 (06/02/15 1:37 PM) (06/01/15 8:29 PM) Problem List Condition Effective Dates Status Health Status Informant AKA - Above knee Active amputation(Confirmed)1 Bronchitis(Confirmed) Resolved Fracture(Confirmed)2 Active Heart disease(Confirmed) Active Hypothyroid(Confirmed) Active Meningioma(Confirmed) Resolved 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 (Same as: Tylenol) Start Date: 06/04/15 Stop Date: 06/06/15 Status: DiscontinuedAdvair Diskus 250 mcg-50 mcg inhalation powder 1 puff, Route: INHALATION, Drug Form: AERO, Dosing Weight 53.182, kg, BID, Start date: 06/03/15 9:00:00, Duration: 30 day, Stop date: 07/02/15 17:00:00 Start Date: 06/03/15 Stop Date: 06/02/15 Status: DiscontinuedALPRAZOLam 1 mg, 2 tab, Route: PO, Drug form: TAB, TID, Dosing Weight 53.182, kg, PRN Anxiety, Start date: 06/04/15 10:13:00, Duration: 30 day, Stop date: 07/04/15 10 :12:00 Notes: With food or milk(Same as: Xanax) Start Date: 06/04/15 Stop Date: 06/06/15 Status: DiscontinuedBactrim DS 800 mg- 160 mg oral tablet 1 tab, Route: PO, Drug Form: TAB, Dosing Weight 53.182, kg, [id number], Start date : 06/04/15 4:00:00, Duration: 5 day, Stop date: 06/08/15 16:00:00 Start Date: 06/04/15 Stop Date: 06/04/15 Status: Discontinuedbudesonide-formoterol 160 mcg-4.5 mcg/inh inhalation aerosol with adapter 2 inhalation, Route: INHALATION, Drug Form: AERO/A, RBID, Start date: 06/02/15 20:00:00, Duration: 30 day, Stop date: 07/02/15 8:00:00 Notes: (Same as: Symbicort) Start Date: 06/02/15 Stop Date: 06/06/15 Status: Discontinuedcalcium gluconate + Sodium Chloride 0.9% IV 100 mL 3 gm, 30 mL, Route: IVPB, PRN, Dosing Weight 53.182, kg, PRN Abnormal Lab Result , For NON-ICU Patients Only., Start date: 06/03/15 6:39:00, Duration: 30 day, Stop date: 07/03/15 6:38:00 Start Date: 06/03/15 Stop Date: 06/06/15 Status: Discontinuedcalcium gluconate + Sodium Chloride 0.9% IV 80 mL 2 gm, 20 mL, Route: IVPB, PRN, Dosing Weight 53.182, kg, PRN Abnormal Lab Result , For NON-ICU Patients Only., Start date: 06/03/15 6:39:00, Duration: 30 day, Stop date: 07/03/15 6:38:00 Start Date: 06/03/15 Stop Date: 06/06/15 Status: Discontinuedcalcium-vitamin D 500 mg-200 intl units oral tablet 1 tab, Route: PO, Drug Form: TAB, Dosing Weight 53.182, kg, Daily, Start date: 06/03/15 9:00:00, Duration: 30 day, Stop date: 07/02/15 9:00:00 Notes: (Same As: Eli-D, OsCal-D, Oyster Calcium) Start Date: 06/03/15 Stop Date: 06/06/15 Status: DiscontinuedColace 100 mg oral capsule 100 mg, 1 cap, Route: PO, Drug form: CAP, BID, Dosing Weight 53.182, kg, PRN Constipation, Start date: 06/02/15 19:34:00, Duration: 30 day, Stop date: 19:33:00 Notes: (Same as: Colace) (Do Not Crush) Start Date: 06/02/15 Stop Date: 06/06/15 Status: DiscontinuedCymbalta 60 mg, 1 cap, Route: PO, Drug form: DRC, BID, Dosing Weight 53.182, kg, Start date: 06/03/15 9:00:00, Duration: 30 day, Stop date: 07/02/15 17:00:00 Notes: (Same as: Cymbalta) (Do Not Crush) Start Date: 06/03/15 Stop Date: 06/06/15 Status: DiscontinuedDilaudid 0.2 mg, 0.1 mL, Route: IV, Drug form: INJ, Q2H, Dosing Weight 53.182, kg, PRN Pain Score 7-10, Startdate: 06/02/15 17:36:00, Duration: 30 day, Stop date: 17:35:00 Notes: Same as: Dilaudid Start Date: 06/02/15 Stop Date: 06/04/15 Status: Discontinueddocusate 100 mg, 1 cap, Route: PO, Drug form: CAP, BID, Dosing Weight 53.182, kg, Start date: 06/03/15 9:00:00, Duration: 30 day, Stop date: 07/02/15 17:00:00 Notes: (Same as: Colace) (Do Not Crush) Start Date: 06/03/15 Stop Date: 06/06/15 Status: Discontinuedenoxaparin 40 mg, 0.4 mL, Route: SUB-Q, Drug form: INJ, [id number], Dosing Weight 53.182, kg , Start date: 06/02/15 18:00:00, Duration: 30 day, Stop date: 07/01/15 18:00:00 Notes: (Same as: Lovenox) Start Date: 06/02/15 Stop Date: 06/06/15 Status: DiscontinuedfentaNYL 25 microgram, 0.5 mL, Route: IVP, Drug form: INJ, Q5Min, Dosing Weight 54.545, kg, PRN Pain Score 4-6, Start date: 06/02/15 13:11:00, Duration: 4 doses or times, Stop date: Limited # of times Notes: (Same as: Sublimaze) Preservative free. Start Date: 06/02/15 Stop Date: 06/02/15 Status: Completedflumazenil 0.2 mg, 2 mL, Route: IVP, Drug form: INJ, PRN, Dosing Weight 54.545, kg, PRN Benzodiazepine Reversal, Initial dose, Start date: 06/02/15 13:11:00, Duration: 2 day, Stop date: 06/04/15 13:10:00 Notes: (Same as: Romazicon) Start Date: 06/02/15 Stop Date: 06/04/15 Status: Completedfolic acid 1 mg, 1 tab, Route: PO, Drug form: TAB, Daily, Dosing Weight 53.182, kg, Start date: 06/03/15 9:00:00, Duration: 30 day, Stop date: 07/02/15 9:00:00 Notes: (Same as: Folvite) Start Date: 06/03/15 Stop Date: 06/06/15 Status: Discontinuedgabapentin 800 mg, 2 cap, Route: PO, Drug form: CAP, TID, Dosing Weight 53.182, kg, Start date: 06/03/15 9:00:00, Duration: 30 day, Stop date: 07/02/15 17:00:00 Notes: (Same as: Neurontin) Start Date: 06/03/15 Stop Date: 06/04/15 Status: DiscontinuedhydrALAZINE 10 mg, 0.5 mL, Route: IVP, Drug form: INJ, Q4H, Dosing Weight 53.182, kg, PRN Hypertension, Start date: 06/04/15 12:29:00, Stop date: 07/04/15 12:28:00 Notes: (Same as: Apresoline)Push over 5 minutes Start Date: 06/04/15 Stop Date: 06/06/15 Status: Discontinuedlabetalol 10 mg, 2 mL, Route: IVP, Drug form: INJ, Q5Min, Dosing Weight 54.545, kg, PRN Elevated BP, Start date: 06/02/15 13:11:00, Duration: 5 doses or times, Stop date: Limited # of times Start Date: 06/02/15 Stop Date: 06/06/15 Status: Discontinuedmagnesium oxide 800 mg, 2 tab, Route: PO, Drug form: TAB, PRN, Dosing Weight 53.182, kg, PRN Abnormal Lab Result, For NON-ICU Patients Only., Start date: 06/03/15 6:39:00, Duration: 30 day, Stop date: 07/03/15 6:38:00 Notes: (Same as: Mag-Ox 400)Magnesium oxide [id number] elemental magnesiumDose= ____mg magnesium oxide (___mg elemental magnesium) Start Date: 06/03/15 Stop Date: 06/06/15 Status: Discontinuedmagnesium sulfate 1 gm, 100 mL, Route: IVPB, Drug form: INJ, PRN, Dosing Weight 53.182, kg, PRN Abnormal Lab Result, For NON-ICU Patients Only., Start date: 06/03/15 6:39:00, Duration: 30 day, Stop date: 07/03/15 6:38:00 Start Date: 06/03/15 Stop Date: 06/06/15 Status: Discontinuedmagnesium sulfate 2 gm, 50 mL, Route: IVPB, Drug form: INJ, PRN, Dosing Weight 53.182, kg, PRN Abnormal Lab Result, For NON-ICU Patients Only., Start date: 06/03/15 6:39:00, Duration: 30 day, Stop date: 07/03/15 6:38:00 Start Date: 06/03/15 Stop Date: 06/06/15 Status: Discontinuedmultivitamin 1 tab, Route: PO, Drug Form: TAB, Dosing Weight 53.182, kg, Daily, Start date: 06/03/15 9:00:00, Duration: 30 day, Stop date: 07/02/15 9:00:00 Notes: (Same as:Thera) Take with food. Start Date: 06/03/15 Stop Date: 06/06/15 Status: Discontinuednaloxone 0.04 mg, 0.1 mL, Route: IVP, Drug form: INJ, Q2MIN, Dosing Weight 54.545, kg, PRN Narcotic Reversal,Start date: 06/02/15 13:11:00, Duration: 8 doses or times , Stop date: Limited # of times Notes: Same as Narcan Start Date: 06/02/15 Stop Date: 06/06/15 Status: Discontinuednicotine 7 mg, 1 patch, Route: TOP, Drug form: ERFILM, Daily, Dosing Weight 53.182, kg, Start date: 06/05/15 16:00:00, Duration: 30 day, Stop date: 07/05/15 9:00:00 Notes: (Same as: Habitrol)"Remove old patch before application of new patch" Start Date: 06/05/15 Stop Date: 06/06/15 Status: DiscontinuedNorco 10/325 oral tablet 2 tab, Route: PO, Drug Form: TAB, Dosing Weight 53.182, kg, Q4H, PRN Pain Score 4-6, Start date: 06/03/15 9:56:00, Duration: 30 day, Stop date: 07/03/15 9:55:00 Notes: Do not exceed 4gm/day of acetaminophen. (Same as: [place] 325/10) Start Date: 06/03/15 Stop Date: 06/04/15 Status: DiscontinuedNorco 7.5/325 oral tablet 1 tab, Route: PO, Drug Form: TAB, Dosing Weight 53.182, kg, Q6H, PRN Pain Score 4-6, Start date: 06/05/15 9:27:00, Duration: 30 day, Stop date: 07/05/15 9:26:00 Notes: Same as [place] 325-7.5mg Do not exceed 4gm/day of acetaminophen. Start Date: 06/05/15 Stop Date: 06/06/15 Status: Discontinuedomeprazole 20 mg, Route: PO, Drug form: ECTAB, BID, Dosing Weight 53.182, kg, Start date: 06/03/15 9:00:00, Duration: 30 day, Stop date: 07/02/15 17:00:00 Start Date: 06/03/15 Stop Date: 06/02/15 Status: Discontinuedondansetron 4 mg, 2 mL, Route: IVP, Drug form: INJ, ONCE, Dosing Weight 54.545, kg, PRN Nausea & Vomiting, Start date: 06/02/15 13:11:00 Notes: (Same as: Zofran) MEDICATION WASTE Product Size: 4 mgProduct Wasted: ___ mg Start Date: 06/02/15 Stop Date: 06/06/15 Status: Discontinuedondansetron 4 mg, 2 mL, Route: IVP, Drug form: INJ, Q6H, Dosing Weight 53.182, kg, PRN Nausea & Vomiting, Start date: 06/02/15 17:36:00, Duration: 30 day, Stop date: 07/02/15 17:35:00 Notes: (Same as: Zofran) MEDICATION WASTE Product Size: 4 mgProduct Wasted: _0__ mg Start Date: 06/02/15 Stop Date: 06/06/15 Status: DiscontinuedPlasmaLyte A PH-7.4 1,000 mL 1,000 mL, Rate: 75 ml/hr, Infuse over: 13.3 hr, Route: IV, Dosing Weight 53.182 kg, Total Volume: 1,000, Start date: 06/02/15 17:36:00, Duration: 30 day, Stop date: 07/02/15 17:35:00 Start Date: 06/02/15 Stop Date: 06/03/15 Status: DiscontinuedPlavix 75 mg, 1 tab, Route: PO, Drug form: TAB, Daily, Dosing Weight 53.182, kg, Start date: 06/03/15 9:00:00, Duration: 30 day, Stop date: 07/02/15 9:00:00 Notes: (Same As: Plavix) Start Date: 06/03/15 Stop Date: 06/06/15 Status: Discontinuedpneumococcal 23-valent vaccine 0.5 mL, Route: IM, Drug Form: INJ, Daily, Start date: 06/03/15 9:00:00, Duration : 1 doses or times, Stop date: 06/03/15 9:00:00 Notes: (Same as: Pneumovax 23) Refrigerate Start Date: 06/03/15 Stop Date: 06/03/15 Status: Completedpotassium chloride 10 mEq, 50 mL, Route: IVPB, Drug form: INJ, PRN, Dosing Weight 53.182, kg, PRN Abnormal Lab Result, For NON-ICU Patients Only, Start date: 06/03/15 6:39:00, Duration: 30 day, Stop date: 07/03/15 6:38:00 Notes: (Same as: KCL) Infuse over 2 hours. Start Date: 06/03/15 Stop Date: 06/06/15 Status: Discontinuedpotassium chloride 20 mEq, 15 mL, Route: NJ, Drug form: LIQ, PRN, Dosing Weight 53.182, kg, PRN Abnormal Lab Result, For NON-ICU Patients Only, Start date: 06/03/15 6:39:00, Duration: 30 day, Stop date: 07/03/15 6:38:00 Notes: (Same as: Potassium Chloride) Start Date: 06/03/15 Stop Date: 06/06/15 Status: Discontinuedpotassium chloride 20 mEq, 1 tab, Route: PO, Drug form: ERTAB, PRN, Dosing Weight 53.182, kg, PRN Abnormal Lab Result, For NON-ICU Patients Only, Start date: 06/03/15 6:39:00, Duration: 30 day, Stop date: 07/03/15 6:38:00 Notes: (Same as: K-Dur 20)"Do Not Crush" With food and full glass of water Start Date: 06/03/15 Stop Date: 06/06/15 Status: Discontinuedpotassium phosphate + Sodium Chloride 0.9% IV 250 mL 15 mmol, 5 mL, Route: IVPB, PRN, Dosing Weight 53.182, kg, PRN Abnormal Lab Result, For NON-ICU Patients Only., Start date: 06/03/15 6:39:00, Duration: 30 day, Stop date: 07/03/15 6:38:00 Notes: (Same as: K Phosphate.) 1 mMol phoshate has 1.47 mEq potassium Infuse over 4 hours Start Date: 06/03/15 Stop Date: 06/06/15 Status: Discontinuedpotassium phosphate + Sodium Chloride 0.9% IV 250 mL 30 mmol, 10 mL, Route: IVPB, PRN, Dosing Weight 53.182, kg, PRN Abnormal Lab Result, For NON-ICU Patients Only., Start date: 06/03/15 6:39:00, Duration: 30 day, Stop date: 07/03/15 6:38:00 Notes: (Same as: K Phosphate.) 1 mMol phoshate has 1.47 mEq potassium Infuse over 4 hours Start Date: 06/03/15 Stop Date: 06/06/15 Status: Discontinuedpotassium phosphate-sodium phosphate 250 mg-278 mg-164 mg oral powder 2 pkt, Route: PO, Drug Form: PDR/REC, Dosing Weight 53.182, kg, PRN, PRN Abnormal Lab Result, For NON-ICU Patients Only, Start date: 06/03/15 6:39:00, Duration: 30 day, Stop date: 07/03/15 6:38:00 Notes: (Same as: Neutra-Phos) Each 1.25 gm pkt has 250mg phosphorous. Mix w/ 2.5oz water and stir. Start Date: 06/03/15 Stop Date: 06/06/15 Status: DiscontinuedProtonix 40 mg, 1 tab, Route: PO, Drug form: ECTAB, BID, Start date: 06/03/15 9:00:00, Duration: 30 day, Stopdate: 07/02/15 17:00:00 Notes: Tablet should not be chewed or crushed.(Same as: Protonix) Start Date: 06/03/15 Stop Date: 06/06/15 Status: Discontinuedremove patch 1 patch, Route: TOP, Drug form: ERFILM, Daily, Start date: 06/06/15 9:00:00, Duration: 30 day, Stop date: 07/05/15 9:00:00 Notes: Remove old patch before application of new patch. Start Date: 06/06/15 Stop Date: 06/06/15 Status: Discontinuedsenna 8.6 mg oral tablet 8.6 mg, 1 tab, Route: PO, Drug Form: TAB, Dosing Weight 53.182, kg, Bedtime, PRN Constipation, Startdate: 06/04/15 11:00:00, Duration: 30 day, Stop date: 10:59:00 Notes: (Same as: Senokot) Start Date: 06/04/15 Stop Date: 06/06/15 Status: DiscontinuedSeptra I.V. + Dextrose 5% in Water IV 500 mL 256 mg, 16 mL, Route: IVPB, Drug form: INJ, [id number], Dosing Weight 53.182, kg, Start date: 06/03/15 0:00:00, Duration: 5 day, Stop date: 06/07/15 12:00:00, Dosing expressed in mg of trimethoprim Special Instructions: Dosing expressed in mg of trimethoprim Notes: D5W only: Stable for __ hour after mixing.6h (<=0.64mg/mL), 4h(0.65 - 0.8mg/mL), 2h (0.81- 1mg/mL). TMP/SMZ 16mg/80mg per mL Dose based on trimethoprim component (Same As: BACTRIM, SEPTRA)"Protect from light"-----DO NOT REFRIGERATE Start Date: 06/03/15 Stop Date: 06/04/15 Status: Discontinuedsodium phosphate + Sodium Chloride 0.9% IV 250 mL 30 mmol, 10 mL, Route: IVPB, PRN, Dosing Weight 53.182, kg, PRN Abnormal Lab Result, For NON-ICU Patients Only., Start date: 06/03/15 6:39:00, Duration: 30 day, Stop date: 07/03/15 6:38:00 Start Date: 06/03/15 Stop Date: 06/06/15 Status: Discontinuedsodium phosphate + Sodium Chloride 0.9% IV 250 mL 15 mmol, 5 mL, Route: IVPB, PRN, Dosing Weight 53.182, kg, PRN Abnormal Lab Result, For NON-ICU Patients Only., Start date: 06/03/15 6:39:00, Duration: 30 day, Stop date: 07/03/15 6:38:00 Start Date: 06/03/15 Stop Date: 06/06/15 Status: DiscontinuedSpiriva 18 mcg inhalation capsule 18 microgram, 1 inhalation, Route: INHALATION, Drug form: CAP, RDaily, Dosing Weight 53.182, kg, Start date: 06/03/15 8:00:00, Duration: 30 day, Stop date: 8:00:00 Notes: (Same As: Spiriva) Start Date: 06/03/15 Stop Date: 06/06/15 Status: Discontinuedsulfamethoxazole-trimethoprim 80 mg-16 mg/mL intravenous solution + Dextrose 5% in Water IV 500 mL 256 mg, 16 mL, Route: IVPB, Drug form: INJ, [id number], Dosing Weight 53.182, kg, Start date: 06/02/15 18:00:00, Duration: 5 day, Stop date: 06/07/15 6:00:00, Dosing expressed in mg of trimethoprim Special Instructions: Dosing expressed in mg of trimethoprim Notes: D5W only: Stable for __ hour after mixing.6h (<=0.64mg/mL), 4h(0.65 - 0.8mg/mL), 2h (0.81- 1mg/mL). TMP/SMZ 16mg/80mg per mL Dose based on trimethoprim component (Same As: BACTRIM, SEPTRA)"Protect from light"-----DO NOT REFRIGERATE Start Date: 06/02/15 Stop Date: 06/02/15 Status: Discontinuedsulfamethoxazole-trimethoprim DS 800 mg-160 mg oral tablet 1 tab, Route: PO, Drug Form: TAB, Q12H, Start date: 06/04/15 10:00:00, Duration : 5 day, Stop date: 06/08/15 22:00:00 Notes: One DS tablet=trimethoprim 160mg + sulfamethoxazole 800 mgDose based on trimethoprim component On empty stomach with a glass of water. 1 hr before meals (Same As: Bactrim DS, Septra DS) Start Date: 06/04/15 Stop Date: 06/06/15 Status: DiscontinuedSynthroid 75 microgram, 1 tab, Route: PO, Drug form: TAB, [id number], Dosing Weight 53.182, kg , Start date: 06/03/15 6:30:00, Duration: 30 day, Stop date: 07/02/15 6:30:00 Notes: Take 1 hour before or 2 hours after meal; Enteral feeds may interefere with the absorption ofthis medication. (Same as:Synthroid, Levothroid) Start Date: 06/03/15 Stop Date: 06/06/15 Status: DiscontinuedUltram 50 mg oral tablet 50 mg, 1 tab, Route: PO, Drug form: TAB, Q6H, Dosing Weight 53.182, kg, PRN Pain Score 4-6, Start date: 06/04/15 3:18:00, Duration: 30 day, Stop date: 07/04 3:17:00 Notes: Not to exceed 400mg/day. (Same As: Ultram) Start Date: 06/04/15 Stop Date: 06/06/15 Status: Discontinuedvancomycin 1 gm, Route: IVPB, Drug form: INJ, ONCE, Dosing Weight 53.182, kg, Start date: 06/02/15 14:02:00, Stop date: 06/02/15 14:02:00 Start Date: 06/02/15 Stop Date: 06/02/15 Status: CompletedVitamin C 500 mg, 1 tab, Route: PO, Drug form: TAB, Daily, Dosing Weight 53.182, kg, Start date: 06/03/15 9:00:00, Duration: 30 day, Stop date: 07/02/15 9:00:00 Notes: (Same as: Vitamin C) Start Date: 06/03/15 Stop Date: 06/06/15 Status: Discontinued Results BLOOD BANK RESULTS Most recent to oldest [Reference Range]: 1 2 3 4 ABO/Rh A POS *Unknown* (06/02/15 1:05 PM) Antibody Scrn Negative (06/02/15 1:05 PM) FFP product Product available (06/02/15 6:24 AM) Platelet product Product available (06/02/15 6:24 AM) RBC product Product available (06/02/15 6:23 AM) ELECTROLYTES Most recent to oldest 1 2 3 4 [Reference Range]: Sodium Lvl [135-145 mEq/L] 130 mEq/L 131 mEq/L 132 mEq/L *LOW* *LOW* *LOW* (06/06/15 3:46 AM) (06/05/15 5:39 AM) (06/04/15 12:20 AM) Potassium Lvl [3.5-5.1 4.4 mEq/L 3.9 mEq/L 3.9 mEq/L mEq/L] (06/06/15 3:46 AM) (06/05/15 5:39 AM) (06/04/15 12:20 AM) Chloride Lvl [95-109 99 mEq/L 99 mEq/L 99 mEq/L mEq/L] (06/06/15 3:46 AM) (06/05/15 5:39 AM) (06/04/15 12:20 AM) CO2 [24-32 mEq/L] 23 mEq/L 23 mEq/L 22 mEq/L *LOW* *LOW* *LOW* (06/06/15 3:46 AM) (06/05/15 5:39 AM) (06/04/15 12:20 AM) AGAP [10.0-20.0 mEq/L] 12.4 mEq/L 12.9 mEq/L 14.9 mEq/L (06/06/15 3:46 AM) (06/05/15 5:39 AM) (06/04/15 12:20 AM) CHEM PANEL Most recent to oldest 1 2 3 4 [Reference Range]: Creatinine Lvl [0.5-1.4 0.6 mg/dL 0.6 mg/dL 0.8 mg/dL mg/dL] (06/06/15 3:46 AM) (06/05/15 5:39 AM) (06/04/15 12:20 AM) eGFR 89 mL/min/1.73m2 1 89 mL/min/1.73m2 2 72 mL/min/1.73m2 3 *NA* *NA* *NA* (06/06/15 3:46 AM) (06/05/15 5:39 AM) (06/04/15 12:20 AM) BUN [7-22 mg/dL] 7 mg/dL 6 mg/dL 4 mg/dL (06/06/15 3:46 AM) *LOW* *LOW* (06/05/15 5:39 AM) (06/04/15 12:20 AM) Glucose Lvl [70-99 99 mg/dL 84 mg/dL 136 mg/dL mg/dL] (06/06/15 3:46 AM) (06/05/15 5:39 AM) *HI* (06/04/15 12:20 AM) Total Protein [6.4-8.4 6.8 g/dL g/dL] (06/04/15 12:20 AM) Albumin Lvl [3.5-5.0 2.7 g/dL g/dL] *LOW* (06/04/15 12:20 AM) Globulin [2.0-4.0 g/dL] 4.1 g/dL *HI* (06/04/15 12:20 AM) A/G Ratio [0.7-1.6] 0.7 (06/04/15 12:20 AM) Calcium Lvl [8.5-10.5 9.1 mg/dL 8.3 mg/dL 7.9 mg/dL 8.4 mg/dL mg/dL] (06/06/15 3:46 AM) *LOW* *LOW* *LOW* (06/05/15 5:39 AM) (06/04/15 12:20 AM) (06/04/15 12:20 AM) Phosphorus [2.5-4.5 2.3 mg/dL 2.2 mg/dL 2.1 mg/dL mg/dL] *LOW* *LOW* *LOW* (06/06/15 3:46 AM) (06/05/15 5:39 AM) (06/04/15 12:20 AM) Magnesium Lvl [1.8-2.4 2.1 mg/dL 2.3 mg/dL 2.0 mg/dL mg/dL] (06/06/15 3:46 AM) (06/05/15 5:39 AM) (06/04/15 12:43 PM) ALT [0-65 unit/L] 17 unit/L (06/04/15 12:20 AM) AST [0-37 unit/L] 16 unit/L (06/04/15 12:20 AM) Alk Phos [39-136 unit/L] 85 unit/L (06/04/15 12:20 AM) Bili Total [0.2-1.3 0.3 mg/dL mg/dL] (06/04/15 12:20 AM) Bili Direct [0.0-0.3 0.1 mg/dL mg/dL] (06/04/15 12:20 AM) Bili Indirect [0.0-1.0 0.2 mg/dL mg/dL] (06/04/15 12:20 AM) Ammonia [<=45.0 uMol/L] 44.0 uMol/L (06/04/15 12:20 AM) Lactic Acid Lvl [0.5-2.2 3.1 mMol/L mMol/L] *HI* (06/04/15 12:20 AM) 1Result Comment: The eGFR is calculated [...] eGFR should be multiplied by the estimated BMI.2Result Comment: The eGFR is calculated using the [...] eGFR should be multiplied by the estimated BMI.3Result Comment: The eGFR is calculated using the [...] eGFR should be multiplied by the estimated BMI.CARDIAC ENZYMES Most recent to oldest [Reference Range]: 1 2 3 4 Total CK [12-191 unit/L] 206 unit/L 246 unit/L *HI* *HI* (06/06/15 3:46 AM) (06/05/15 9:28 PM) CK MB [0.5-3.6 ng/mL] 4.3 ng/mL 4.4 ng/mL *HI* *HI* (06/06/15 3:46 AM) (06/05/15 9:28 PM) CK MB Index [0.0-2.5] 2.1 1.8 (06/06/15 3:46 AM) (06/05/15 9:28 PM) Troponin-T [0.000-0.100 ng/mL] <0.010 ng/mL <0.010 ng/mL (06/06/15 3:46 AM) (06/05/15 9:28 PM) Troponin-I [0.00-0.40 ng/mL] <0.02 ng/mL <0.02 ng/mL (06/06/15 3:46 AM) (06/05/15 9:28 PM) SPECIAL CHEMISTRY Most recent to oldest [Reference Range]: 1 2 3 4 Hgb A1C [<=5.6 %] 5.8 % *HI* (06/02/15 1:00 PM) PARATHYROID PROFILE Most recent to oldest [Reference Range]: 1 2 3 4 Ca Ion WB [1.05-1.25 mMol/L] 1.08 mMol/L (06/04/15 12:20 AM) Ca Norm WB [1.05-1.25 mMol/L] 1.08 mMol/L (06/04/15 12:20 AM) URINE CHEM Most recent to oldest [Reference Range]: 1 2 3 4 U Sodium 142 mEq/L *NA* (06/06/15 10:34 AM) U Osmolality [300-800 mOsm/kg] 507 mOsm/kg (06/06/15 10:34 AM) URINE AND STOOL Most recent to oldest [Reference Range]: 1 2 3 4 UA Turbidity [Clear] Slight Cloudy (06/02/15 5:30 PM) UA Color [Yellow] Yellow *NA* (06/02/15 5:30 PM) UA pH [5.0-8.0] 5.5 (06/02/15 5:30 PM) UA Spec Grav [<=1.030] 1.020 (06/02/15 5:30 PM) UA Glucose [Negative] Negative (06/02/15 5:30 PM) UA Blood [Negative] Moderate *ABN* (06/02/15 5:30 PM) UA Ketones [Negative] Trace *ABN* (06/02/15 5:30 PM) UA Protein [Negative] Trace *ABN* (06/02/15 5:30 PM) UA Urobilinogen [0.1-1.0 EU/dL] 0.2 EU/dL (06/02/15 5:30 PM) UA Bili [Negative] Negative *NA* (06/02/15 5:30 PM) UA Leuk Est [Negative] Moderate *ABN* (06/02/15 5:30 PM) UA Nitrite [Negative] Negative (06/02/15 5:30 PM) UA WBC [0-5 /HPF] >182 /HPF *HI* (06/02/15 5:30 PM) UA RBC [0-2 /HPF] 8 /HPF *HI* (06/02/15 5:30 PM) UA Bacteria [None Seen /HPF] Few /HPF *NA* (06/02/15 5:30 PM) UA Sq Epi [Few /LPF] Many /LPF *ABN* (06/02/15 5:30 PM) UA Hyal Cast [0-2 /LPF] 8 /LPF *HI* (06/02/15 5:30 PM) UA Renal Epi [<=0 /LPF] 8 /LPF *HI* (06/02/15 5:30 PM) UA Mucus [None Seen /LPF] Few /LPF *NA* (06/02/15 5:30 PM) Micro? Performed (06/02/15 5:30 PM) HEMATOLOGY Most recent to oldest 1 2 3 4 [Reference Range]: WBC [3.7-10.4 K/CMM] 7.4 K/CMM 6.0 K/CMM 8.9 K/CMM (06/06/15 3:46 AM) (06/05/15 5:39 AM) (06/04/15 12:20 AM) RBC [4.20-5.40 M/CMM] 3.38 M/CMM 3.07 M/CMM 3.27 M/CMM *LOW* *LOW* *LOW* (06/06/15 3:46 AM) (06/05/15 5:39 AM) (06/04/15 12:20 AM) Hgb [12.0-16.0 g/dL] 9.8 g/dL 8.8 g/dL 9.3 g/dL *LOW* *LOW* *LOW* (06/06/15 3:46 AM) (06/05/15 5:39 AM) (06/04/15 12:20 AM) Hct [36.0-48.0 %] 29.2 % 26.5 % 28.4 % *LOW* *LOW* *LOW* (06/06/15 3:46 AM) (06/05/15 5:39 AM) (06/04/15 12:20 AM) MCV [80.0-98.0 fL] 86.5 fL 86.5 fL 86.8 fL (06/06/15 3:46 AM) (06/05/15 5:39 AM) (06/04/15 12:20 AM) MCH [27.0-31.0 pg] 29.0 pg 28.9 pg 28.4 pg (06/06/15 3:46 AM) (06/05/15 5:39 AM) (06/04/15 12:20 AM) MCHC [32.0-36.0 g/dL] 33.6 g/dL 33.3 g/dL 32.7 g/dL (06/06/15 3:46 AM) (06/05/15 5:39 AM) (06/04/15 12:20 AM) RDW [11.5-14.5 %] 15.1 % 15.1 % 15.0 % *HI* *HI* *HI* (06/06/15 3:46 AM) (06/05/15 5:39 AM) (06/04/15 12:20 AM) Platelet [133-450 K/CMM] 395 K/CMM 303 K/CMM 312 K/CMM (06/06/15 3:46 AM) (06/05/15 5:39 AM) (06/04/15 12:20 AM) MPV [7.4-10.4 fL] 7.9 fL 8.1 fL 7.9 fL (06/06/15 3:46 AM) (06/05/15 5:39 AM) (06/04/15 12:20 AM) Segs [45.0-75.0 %] 72.2 % 53.5 % 70.3 % (06/06/15 3:46 AM) (06/05/15 5:39 AM) (06/04/15 12:20 AM) Lymphocytes [20.0-40.0 16.2 % 27.4 % 17.3 % %] *LOW* (06/05/15 5:39 AM) *LOW* (06/06/15 3:46 AM) (06/04/15 12:20 AM) Monocytes [2.0-12.0 %] 7.9 % 13.1 % 10.9 % (06/06/15 3:46 AM) *HI* (06/04/15 12:20 AM) (06/05/15 5:39 AM) Eosinophils [0.0-4.0 %] 3.0 % 4.6 % 1.1 % (06/06/15 3:46 AM) *HI* (06/04/15 12:20 AM) (06/05/15 5:39 AM) Basophils [0.0-1.0 %] 0.7 % 1.4 % 0.4 % (06/06/15 3:46 AM) *HI* (06/04/15 12:20 AM) (06/05/15 5:39 AM) Segs-Bands # [1.5-8.1 5.3 K/CMM 3.2 K/CMM 6.2 K/CMM K/CMM] (06/06/15 3:46 AM) (06/05/15 5:39 AM) (06/04/15 12:20 AM) Lymphocytes # [1.0-5.5 1.2 K/CMM 1.6 K/CMM 1.5 K/CMM K/CMM] (06/06/15 3:46 AM) (06/05/15 5:39 AM) (06/04/15 12:20 AM) Monocytes # [0.0-0.8 0.6 K/CMM 0.8 K/CMM 1.0 K/CMM K/CMM] (06/06/15 3:46 AM) (06/05/15 5:39 AM) *HI* (06/04/15 12:20 AM) Eosinophils # [0.0-0.5 0.2 K/CMM 0.3 K/CMM 0.1 K/CMM K/CMM] (06/06/15 3:46 AM) (06/05/15 5:39 AM) (06/04/15 12:20 AM) Basophils # [0.0-0.2 0.1 K/CMM 0.1 K/CMM 0.1 K/CMM K/CMM] (06/06/15 3:46 AM) (06/05/15 5:39 AM) (06/03/15 4:41 AM) PT [12.0-14.7 seconds] 14.1 seconds 12.9 seconds (06/04/15 12:21 AM) (06/02/15 1:00 PM) INR [0.85-1.17] 1.08 0.97 (06/04/15 12:21 AM) (06/02/15 1:00 PM) PTT [22.9-35.8 seconds] 31.8 seconds 31.8 seconds 26.8 seconds (06/04/15 12:21 AM) (06/02/15 5:47 PM) (06/02/15 1:00 PM) Immunizations Vaccine Date Refusal Reason pneumococcal 23-valent vaccine 06/03/15 Procedures Procedure Date Related Diagnosis Body Site Closed reduction of fracture of tibia and fibula 02/2014 with internal fixation AKA - Above knee amputation 2010 Excision of lamina of lumbar vertebra 2000 Hysterectomy 1968 Breast biopsy and related procedures 1958 Cataract surgery Cystectomy1 External fixation Mouth operation2 Pain control3 1pt denies [id number] of pain control pump- for dilaudid Social History Social History Type Response Alcohol Past Smoking Status Current every day smoker; Type: Cigarettes; Tobacco use per day : 4; Previous treatment: None; Ready to change: No; Concerns about tobacco use in household: Yes; Lives with someone who smokes; Cigarette Smoking Last 365 Days Yes; Reg Smoking Cessation Counseling Yes Assessment and Plan Extracted from: Title: HVI STS Discharge Note Author: Myles Bernstein MD Date: 06/06/15 Discharge Information Discharge Summary Information: Admitted 06/02/2015, Discharged 06/06/2015, Referring physician for admission, Consulting physician, Admitting diagnosis, Discharge medications (see med rec, order sheet sent with patient). Admitting physician: Federico Wisdom MD. Discharge diagnosis: Atherosclerotic PVD with ulceration (ICD9 440.23, Working, Medical), Status post femoral-popliteal bypass surgery (ICD9 V45.89, Working, Medical), S/p angioplasty (ICD9 V45.82, Working, Medical). Discharge Plan Discharge Summary Plan Discharge Status: stable. Discharge instructions given: to patient. Discharge disposition: snf:. Prescriptions: reviewed with patient, Transfer of care form has been filled out , patient with no new prescriptions as she is already on plavix and aspirin.. Extracted from: Title: CV Surgery Author: Myles Bernstein MD Date: 06/06/15 Progress Daily [facility] Completed: May, 09: 51 by Myles Bernstein MD RM: CVIM - 21, BONNIE GALLO 74y (: 1940) F Attending: Federico Wisdom MD Service: Thoracic/ Cardiac [place] Service Reason for Admission: PERIPHERAL ARTERIAL DISEASE AND LEFT LOWER EXTRMEITY UL Working DRG: Other vascular procedures w CC Code status: Full Code [Ordered] Current diet: Isolation: None Documented Allergies: aspirin, penicillins SUBJECTIVE Patient states" I just want to go back to the detention, I dont want to see anymore doctors." Patient denies pain this AM. Deneis N/V and abdominal pain. OBJECTIVE Physical Exam: Gen: patient awake in her bed watching television as I entered this morning. Ext: LLE not excessively tender this morning. Dopplerable signal heard on LLE over AT. Right AKA. Medial aspect of the leg at the bypass site, all incisions are clean, dry and intact. The dressing cover ing he foot was undressed and the patient was noted to have a roughly 1.5 inch by 1.5 inch black eschar on the bottom of her left foot over a pressure point. This was present prior to admission. CV: RRR Chest: CTABL Psych: patient alert this AM Signal present LLE Anterior tibial artery Afebrile VSS ASSESSMENT & EXAM Bonnie Good is a 74 F POD4 s/p Left femoral to below knee popliteal artery bypass with cryopreserved reversed greater saphenous vein, LLE angiogram and Left common femoral artery endarterectomy. Left foot ulcer was present prior to admission and its appearance is documented in the physical exam section above. PLAN - Patient with persistent hyponatremia. Ordered Uosm and USodium. PAtient currently on fluid restirction of 750cc, with no improvement in nodium, will continue to monitor and make adjustments pending results of new lab studies - D/C Anderson - Dr. Frederick (Podiatry) to see patient today - Nursing to replete phos per protocol - Day 5 of bactrim for UTI: Patient without true UTI by defintion as she has less than 10^5 CFU, also patient is resistent to bactrim thus will D/C antibiotics as patient does not have true UTI and sensitivities returned today. - Patient transferred back to snf to follow up with Dr. Frederick ( podiatry) as outpatient: Dr. Frederick has agreed to se patient - Patient to follow up with Dr. Whitley in 2 weeks in [place], details in discharge info. Ready for Discharge (Yes/No)? Anderson still necessary (Yes/No): Line still necessary (Yes/No): 24hr Labs 06/06 0346 Troponin-T <0.010 Glucose Lvl 99 BUN 7 Creatinine Lvl 0.6 Sodium Lvl 130 L Potassium Lvl 4.4 Chloride Lvl 99 CO2 23 L AGAP 12.4 Calcium Lvl 9.1 eGFR 89 Magnesium Lvl 2.1 Phosphorus 2.3 L Troponin-I <0.02 Total CK 206 H CK MB 4.3 H CK MB Index 2.1 WBC 7.4 RBC 3.38 L Hgb 9.8 L Hct 29.2 L MCV 86.5 MCH 29.0 MCHC 33.6 RDW 15.1 H Platelet 395 MPV 7.9 Segs 72.2 Monocytes 7.9 Lymphocytes 16.2 L Eosinophils 3.0 Basophils 0.7 Segs-Bands # 5.3 Lymphocytes # 1.2 Monocytes # 0.6 Eosinophils # 0.2 Basophils # 0.1 07/20 2128 Total CK 246 H Troponin-I <0.02 Troponin-T <0.010 CK MB 4.4 H CK MB Index 1.8 Vitals Tmp(F) Pulse BP RR SpO2 FIO2 06/06 07:38 ---- 96 ----- -- --- --- 06/06 06:29 ---- 94 132/59 18 --- --- 06/06 05:00 ---- 96 ----- -- --- --- 06/06 04:00 98.2 92 148/65 20 97 --- 06/06 02:00 ---- 96 136/66 20 --- --- 24 Hr Tmax: 99.1F (37.28c) at 06/05 16:28 Vital Signs are the last 5 in the past 48 hours. Date Wt(kg) Wt(lb) Ht(cm) Ht(in) Method 06/02 53.18 117.00 177.80 70.00 Measured 06/01 (initial) 54.55 120.00 Estimated 06/01 170.18 67.00 Stated I&O Record In Out Bal 06/05 24hr Tot 842 1150 -308 06/04 24hr Tot 901 2200 -1299 Medications (38) Active Scheduled Meds (16): 06/03/15 DULoxetine (Cymbalta) 60 mg PO BID 06/04/15 acetaminophen 650 mg PO Q6H 06/03/15 ascorbic acid (Vitamin C) 500 mg PO Daily 06/02/15 budesonide-formoterol (budesonide-formoterol 160 mcg-4.5 mcg/inh inhalation aerosol with adapter) 2 inhalation INHALATION RBID 06/03/15 calcium-vitamin D (calcium-vitamin D 500 mg-200 intl units oral tablet ) 1 tab PO Daily 06/03/15 clopidogrel (Plavix) 75 mg PO Daily 06/03/15 docusate 100 mg PO BID 06/02/15 enoxaparin 40 mg SUB-Q [id number] 06/03/15 folic acid 1 mg PO Daily 06/03/15 levothyroxine (Synthroid) 75 microgram PO Q630AM 06/03/15 multivitamin 1 tab PO Daily 06/05/15 nicotine 7 mg TOP Daily 06/03/15 pantoprazole (Protonix) 40 mg PO BID 06/06/15 remove patch 1 patch TOP Daily 06/04/15 sulfamethoxazole-trimethoprim (sulfamethoxazole-trimethoprim DS 800 mg -160 mg oral tablet) 1 tab PO Q12H 06/03/15 tiotropium (Spiriva 18 mcg inhalation capsule) [address]aily Unscheduled Meds: None PRN Meds (22): 06/04/15 ALPRAZolam (ALPRAZOLam) 1 mg PO TID 06/05/15 acetaminophen-hydrocodone ([place] 7.5/325 oral tablet) 1 tab PO Q6H 06/03/15 calcium gluconate + Sodium Chloride 0.9% IV 100 mL 3 gm IVPB PRN 130 ml/hr 06/03/15 calcium gluconate + Sodium Chloride 0.9% IV 80 mL 2 gm IVPB PRN 100 ml /hr 06/02/15 docusate (Colace 100 mg oral capsule) 100 mg PO BID 06/04/15 hydrALAZINE 10 mg IVP Q4H 06/02/15 labetalol 10 mg IVP Q5Min 06/03/15 magnesium oxide 800 mg PO PRN 06/03/15 magnesium sulfate 1 gm IVPB PRN 100 ml/hr 06/03/15 magnesium sulfate 2 gm IVPB PRN 25 ml/hr 06/02/15 naloxone 0.04 mg IVP Q2MIN 06/02/15 ondansetron 4 mg IVP Q6H 06/03/15 potassium chloride 20 mEq PO PRN 06/03/15 potassium chloride 20 mEq NJ PRN 06/03/15 potassium chloride 10 mEq IVPB PRN 50 ml/hr 06/03/15 potassium phosphate + Sodium Chloride 0.9% IV 250 mL 15 mmol IVPB PRN 63.75 ml/hr 06/03/15 potassium phosphate + Sodium Chloride 0.9% IV 250 mL 30 mmol IVPB PRN 65 ml/hr 06/03/15 potassium phosphate-sodium phosphate (potassium phosphate-sodium phosphate 250 mg-278 mg-164 mg oral powder) 2 pkt PO PRN 06/04/15 senna (senna 8.6 mg oral tablet) 8.6 mg PO Bedtime 06/03/15 sodium phosphate + Sodium Chloride 0.9% IV 250 mL 15 mmol IVPB PRN 63.75 ml/hr 06/03/15 sodium phosphate + Sodium Chloride 0.9% IV 250 mL 30 mmol IVPB PRN 65 ml/hr 06/04/15 tramadol (Ultram 50 mg oral tablet) 50 mg PO Q6H One Time Meds: None Continuous Infusions: None
--- OUTSIDE RECORDS SUMMARY | 2018-12-14 16:26 | XMS REPORT | Summary of Care ---
:1940 Author Encounter HQ Saira_rebeka(CHRISTIANO) [id number] Date(s): 08/03/14 - 08/03/[address] [id number] [facility] Discharge Disposition: Home Physician Attending: Zayra Davila MD Physician_Referring: Zayra Davila MD Reason for Visit F/U Vital Signs Most recent to oldest [Reference Range]: 1 Height 177.8 cm (08/03/14 11:09 AM) Systolic Blood Pressure [90-140 mmHg] 100 mmHg (08/03/14 11:09 AM) Diastolic Blood Pressure [60-90 mmHg] 50 mmHg *LOW* (08/03/14 11:09 AM) Respiratory Rate [14-20 BRMIN] 20 BRMIN (08/03/14 11:09 AM) Peripheral Pulse Rate [60-100 bpm] 89 bpm (08/03/14 11:09 AM) Weight 44.091 kg (08/03/14 11:09 AM) Body Mass Index 13.95 m2 (08/03/14 11:09 AM) Problem List Condition Effective Dates Status Health Status Informant AKA - Above knee Active amputation(Confirmed)1 Fracture(Confirmed)2 Active Heart disease(Confirmed) Active Hypothyroid(Confirmed) Active Left foot pain(Confirmed) Active Meningioma(Confirmed) Resolved Pancreas(Confirmed)3 Resolved Peripheral pulmonary artery Active disease(Confirmed) PVD - Peripheral vascular Active disease(Confirmed) [id number] fibula left leg3pt. unaware of this problem Allergies, Adverse Reactions, Alerts Substance Reaction Severity Status aspirin Active penicillins Active Medications No data available for this section Medications Administered During Your Visit No data [...]
--- OUTSIDE RECORDS SUMMARY | 2018-12-14 16:26 | XMS REPORT | Summary of Care ---
:1940 Author Organization [facility] Address [address] [place] [id number]- Encounter HQ Bonita(FIN) [id number] Date(s): 11/28/15 - 11/28/[address] [address]- [employer] Discharge Disposition: Home Attending Physician: Federico Whitley MD Vital Signs No data available for this section Problem List Condition Effective Dates Status Health Status Informant AKA - Above knee Active amputation(Confirmed)1 Bronchitis(Confirmed) Resolved Fracture(Confirmed)2 Active Heart disease(Confirmed) Active Hypothyroid(Confirmed) Active Meningioma(Confirmed) Resolved Pancreas(Confirmed)3 Resolved Peripheral pulmonary artery Active disease(Confirmed) PVD - Peripheral vascular Active disease(Confirmed) [id number] fibula left leg3pt. unaware of this problem Allergies, Adverse Reactions, Alerts Substance Reaction Severity Status aspirin Active penicillins Active Medications No data available for this section Results No data available for this section Immunizations Vaccine Date Refusal Reason pneumococcal 23-valent vaccine 06/03/15 Procedures Procedure Date Related Diagnosis Body Site Closed reduction of fracture of tibia and fibula 02/2014 with internal fixation AKA - Above knee amputation 2010 Excision of lamina of lumbar vertebra 2000 Hysterectomy 1969 Breast biopsy and related procedures 1958 Cataract surgery Cystectomy1 External fixation Mouth operation2 Pain control3 1pt denies [id number] [id number] of pain control pump- for dilaudid Social History Social History Type Response Alcohol Past Smoking Status Current every day smoker; Type: Cigarettes; Tobacco use per day : 4; Previous treatment: None; Ready to change: No; Concerns about tobacco use in household: Yes; Lives with someone who smokes; Cigarette Smoking Last 365 Days Yes; Reg Smoking Cessation Counseling Yes Assessment and Plan No data available for this section
[2018-12-14 17:01] LABS: Basophils % 0.7 % (0-1.3); Hematocrit 34.8 % (36.0-45.0); Lymphocytes % 7.8 % (15.3-44.8); MPV 8.4 fL (7.6-11.3); Monocytes % 7.7 % (3.3-12.3); RBC Red Blood Cell Count 4.21 M/uL (3.86-4.86)
[2018-12-14] MEDS ORDERED: NA CHLORIDE 0.9% 500 ML ONE (17:03)
[2018-12-14] MEDS ORDERED: NA CHLORIDE 0.9% 1,000 ML ONE (17:03)
[2018-12-14] MEDS ORDERED: CEFTRIAXONE/SWI 1gm 1 GM/10 ML SYR ONE (17:04)
[2018-12-14 17:07] LABS: Protime INR 1.13
[2018-12-14 17:17] LABS: ALT/SGPT 15 U/L (12-78); AST/SGOT 13 U/L (15-37); Albumin 2.9 g/dL (3.4-5.0); Alkaline Phosphatase 125 U/L (45-117); BUN Blood Urea Nitrogen 13 mg/dL (7-18); Bicarbonate 28 mmol/L (21-32); Bilirubin Direct 0.2 mg/dL (0-0.2); Bilirubin Total 0.5 mg/dL (0.2-1.0); CKMB Creatine Kinase MB < 1.0 ng/mL (0.3-3.6); Creatine Phosphokinase 22 U/L (26-192); Glucose Level 144 mg/dL (74-106); Lipase 66 U/L (73-393); Potassium 3.4 mmol/L (3.5-5.1); Protein, Total 7.5 g/dL (6.4-8.2); Sodium Level 136 mmol/L (136-145); Troponin (Emerg Dept Use Only) < 0.02 ng/mL (0.0-0.045)
[2018-12-14] MEDS ORDERED: ACETAMINOPHEN 650MG/RECT SUPP PR ONE (17:18)
--- NOTE | 2018-12-14 17:50 | ER ---
Nurse's Notes [facility] Name: Bonnie Good Age: 78 yrs Sex: Female : 1940 Arrival Date: 12/14/2018 Time: 16:18 Bed 5 Private MD: Diagnosis: Cystitis, unspecified without hematuria;Sepsis due to other Gram-negative organisms Presentation: 12/14 16:18 Presenting complaint: EMS states: half-way nurse reported lethargy since this ca1 morning. EMS reports pt's O2 sat was 89% RA and increased to 96% via 4 L NC. Transition of care: patient was received from another setting of care ([facility] care [facility]. Onset of symptoms was December 14, 2018. Risk Assessment: Do you want to hurt yourself or someone else? Patient reports no desire to harm self or others. Initial Sepsis Screen: Does the patient meet any 2 criteria? RR > 20 per min. Altered Mental Status. HR > 90 bpm. Yes Does the patient have a suspected source of infection? Yes: Productive cough/pneumonia. Care prior to arrival: IV initiated. 20 GA, in the right hand, Glucose check: 102 Oxygen administered. via nasal cannula. 16:18 Method Of Arrival: EMS: [facility] ca1 16:18 Acuity: ANDREINA 2 ca1 Historical: - Allergies: 16:28 Aspirin; ca1 16:28 PENICILLINS; ca1 - Home Meds: 17:25 albuterol sulfate 2.5 mg /3 mL (0.083 %) Inhl nebu PRN [Active]; amitriptyline 25 mg aa5 Oral tab once daily [Active]; Breo Ellipta 100-25 mcg/dose inhalation dsdv once daily [Active]; Calcium 600 with Vitamin D3 600 mg(1,500mg) -400 unit oral cap daily [Active]; Colace 100 mg oral cap PRN for Constipation [Active]; Cymbalta 90mg oral cpDR once daily [Active]; 17:25 folic acid 1 mg Oral tab 1 tab once daily [Active]; Fosamax 70 mg Oral tab 1 tab once aa5 wkly [Active]; gabapentin 800 mg oral tab 3 times per day [Active]; ipratropium bromide 0.02 % inhalation soln 4 times per day [Active]; Lasix 20 mg Oral tab once daily [Active]; Lyrica 100mg Oral 3 times per day [Active]; melatonin 3 mg Oral tab nightly [Active]; [place] 10-325 mg Oral tab every 6 hours [Active]; 17:25 Pepcid 20 mg Oral tab once daily [Active]; Synthroid 75 mcg Oral tab once daily aa5 [Active]; Vitamin D3 1,000 unit oral cap daily [Active]; Xanax 1 mg Oral tab twice a day [Active]; Cymbalta 60 mg oral cpDR once daily [Active]; - PMHx: 16:28 Anxiety; Cancer; neuropathy in hands; ca1 16:30 COPD; Dysphagia; Cognitive communication deficit; Chronic Pulmonary Edema; ca1 Osteomyelitis; Hypertension; Hypothyroidism; GERD; Depression; PVD; Vitamin D deficiency; Osteoporosis; Chronic pain; septicemia; Fracture of left femur; Cellulitis; - PSHx: 16:31 right above the knee amputation; mouth CA removed; Cholecystectomy; Hysterectomy; ca1 Breast biopsy; Knee surgery; 16:30 Left-below the knee amputation; Pain pump; ca1 - Immunization history:: Pneumococcal vaccine is not up to date, Flu vaccine is not up to date. - Social history:: Patient/guardian denies using alcohol, street drugs, The patient lives with family, Smoking status: Patient uses tobacco products, smokes one-half pack cigarettes per day. - Family history:: not pertinent. - Ebola Screening: : Patient denies exposure to infectious person Patient denies travel to an Ebola-affected area in the 21 days before illness onset. Screenin:30 Abuse screen: Denies threats or abuse. Denies injuries from another. Nutritional ca1 screening: No deficits noted. Tuberculosis screening: No symptoms or risk factors identified. Fall Risk Secondary diagnosis (15 points) impaired mobility, IV access (20 points). Ambulatory Aid- None/Bed Rest/Nurse Assist (0 pts). Assessment: 16:20 General: Appears in no apparent distress. Behavior is calm, cooperative, appropriate ca1 for age, drowsy. Pain: Denies pain. Neuro: Level of Consciousness is obeys commands, eyes closed, but easily awakens to verbal stimuli. Opens eyes when prompted. . Oriented to person, place, situation. Cardiovascular: Heart tones S1 S2 present Capillary refill < 3 seconds Patient's skin is warm and dry. Rhythm is atrial fibrillation. Respiratory: Reports cough that is productive, Airway is patent Trachea midline Respiratory effort is even, unlabored, Respiratory pattern is regular, symmetrical, Breath sounds are clear in left lower lobe Breath sounds are coarse in right upper lobe and right middle lobe. GI: Abdomen is flat, non-distended, pain pump at RLQ Bowel sounds present X 4 quads. Abd is soft and non tender X 4 quads. : No signs and/or symptoms were reported regarding the genitourinary system. EENT: No signs and/or symptoms were reported regarding the EENT system. Derm: Skin is intact, is fragile, Skin is dry, Skin is pink, Skin temperature is warm. Musculoskeletal: Amputation of Other: AKA on LLE, BKA on RLE. 17:30 Reassessment: Patient appears in no apparent distress at this time. Patient and/or ca1 family updated on plan of care and expected duration. Pain level reassessed. Patient is alert, oriented x 3, equal unlabored respirations, skin warm/dry/pink. 18:15 Reassessment: Patient appears in no apparent distress at this time. Patient and/or ca1 family updated on plan of care and expected duration. Pain level reassessed. Patient is alert, oriented x 3, equal unlabored respirations, skin warm/dry/pink. Dr. Arenas at bedside. 19:16 General: Appears in no apparent distress. Behavior is drowsy. Pain: Denies pain. Neuro: ea Level of Consciousness is obeys commands, Oriented to person, place, situation. Cardiovascular: Heart tones S1 S2 present Patient's skin is warm and dry. Respiratory: Airway is patent Respiratory effort is even, unlabored, Respiratory pattern is regular, symmetrical, Breath sounds are coarse bilaterally. GI: Abdomen is non-distended, Bowel sounds present X 4 quads. Derm: Skin is pink, warm \T\ dry. Musculoskeletal: Amputation of Other: AKA of LLE and BKA of RLE. 20:01 Reassessment: Patient and/or family updated on plan of care and expected duration. Pain ea level reassessed. Pt resting with eyes closed, no s/s of pain or discomfort at this time. 20:54 Reassessment: Patient and/or family updated on plan of care and expected duration. Pain ea level reassessed. Pt remains drowsy, Ox 2, respirations even and unlabored. Chest expansions even and symmetrical. No s/s of pain or discomfort noted at this time. Pt taken to second floor via stretcher per tech with O2 at 2 L. Tolerating well. Vital Signs: 16:18 BP 105 / 52; Pulse 105; Resp 22; Temp 100.1; Pulse Ox 97% on 2 lpm NC; ca1 16:51 Weight 47.72 kg; ca1 17:18 BP 117 / 49; Pulse 100; Resp 17 S; Temp 100.6(C); Pulse Ox 100% on 2 lpm NC; ca1 18:15 BP 97 / 79; Pulse 98; Resp 18; Pulse Ox 100% 2 lpm ; ca1 19:20 BP 110 / 44; Pulse 106; Resp 19; Temp 100.4(C); Pulse Ox 98% on 2 lpm NC; ea 20:02 BP 97 / 51; Pulse 91; Resp 18; Temp 98.5(O); Pulse Ox 100% ; ea 20:46 BP 108 / 60; Pulse 90; Resp 17; Temp 98.4(O); Pulse Ox 99% on 2 lpm NC; ea ED Course: 16:18 Patient arrived in ED. ca1 16:18 Arm band placed on right wrist. ca1 16:18 Patient has correct armband on for positive identification. Bed in low position. Call ca1 light in reach. Side rails up X2. 16:18 teletypesetter monitor on. Pulse ox on. NIBP on. ca1 16:23 Gillian Harden MD is Attending Physician. ma2 16:25 Triage completed. ca1 16:27 EKG done, by medical supply technician. reviewed by Patrick Amin MD. sm3 16:[address], RN is Primary Nurse. ca1 16:40 Inserted saline lock: 20 gauge in right antecubital area, using aseptic technique. ca1 Blood collected. 16:40 Initial lab(s) drawn, by co, sent to lab. First set of blood cultures drawn by co. ca1 16:57 Second set of blood cultures drawn by co. ca1 17:04 Anderson cath inserted, using sterile technique, 16 Fr., by co, balloon inflated, to ca1 gravity drainage, clamped. urine specimen collected. returned cloudy urine. Patient tolerated well. 17:13 Radiology exam delayed due to IV insertion attempt and/or patient not having jb2 appropriate IV at this time. 17:44 Gillian Harden MD is Hospitalizing Provider. ma2 17:45 Hospitalizing Provider role handed off by Gillian Harden MD ma2 17:45 Onelia Arenas MD is Hospitalizing Provider. ma2 20:52 No provider procedures requiring assistance completed. Patient admitted, IV remains in ea place. Administered Medications: 17:00 Drug: NS 0.9% (30 ml/kg) 30 ml/kg Route: IV; Rate: bolus; Site: right forearm; ca1 17:02 Drug: Rocephin 1 grams Route: IV; Rate: calculated rate; Site: right forearm; ca1 19:40 Follow up: Response: No adverse reaction; IV Status: Completed infusion ea 17:20 Drug: Tylenol Suppository 650 mg Route: PA; ca1 19:50 Follow up: Response: No adverse reaction; Temperature is decreased ea Point of Care Testing: Blood Glucose: 16:55 Blood Glucose: 148 mg/dL; ca1 Ranges: Outcome: 17:49 Decision to Hospitalize by Provider. ma2 19:00 Admitted to Med/surg accompanied by tech, via stretcher, room 206, with oxygen, on ea monitor, Report called to Receiving nurse on second floor 19:00 Condition: stable 19:00 Instructed on the need for admit. 20:58 Patient left the ED. ea Signatures: Ted Cota Audri, RN RN aa5 Roselia Urias RN RN Gillian Edward MD MD ma2 Eunice Ziegler [address] RN RN ca1 Corrections: (The following items were deleted from the chart) 17:30 16:20 Musculoskeletal: ca1 ca1 19:23 19:20 BP 110 / 44; Pulse 106bpm; Resp 19bpm; Pulse Ox 98% 2 lpm Nasal Cannula; ea ea
--- NOTE | 2018-12-14 17:50 | EDPHYS ---
Physician Documentation [facility] Name: Bonnie Good Age: 78 yrs Sex: Female : 1940 Arrival Date: 12/14/2018 Time: 16:18 Bed 5 Private MD: ED Physician Gillian Harden HPI: 12/14 16:30 This 78 yrs old Female presents to ER via EMS with complaints of fever. ma2 16:30 Onset: The symptoms/episode began/occurred gradually, 2 day(s) ago. Associated signs ma2 and symptoms: Pertinent negatives: abdominal pain, arthralgias, chest pain, cough, myalgias, sinus congestion. Severity of symptoms: At their worst the symptoms were moderate in the emergency department the symptoms are unchanged. The patient has experienced similar episodes in the past. Historical: - Allergies: 16:28 Aspirin; ca1 16:28 PENICILLINS; ca1 - Home Meds: 17:25 albuterol sulfate 2.5 mg /3 mL (0.083 %) Inhl nebu PRN [Active]; amitriptyline 25 mg aa5 Oral tab once daily [Active]; Breo Ellipta 100-25 mcg/dose inhalation dsdv once daily [Active]; Calcium 600 with Vitamin D3 600 mg(1,500mg) -400 unit oral cap daily [Active]; Colace 100 mg oral cap PRN for Constipation [Active]; Cymbalta 90mg oral cpDR once daily [Active]; 17:25 folic acid 1 mg Oral tab 1 tab once daily [Active]; Fosamax 70 mg Oral tab 1 tab once aa5 wkly [Active]; gabapentin 800 mg oral tab 3 times per day [Active]; ipratropium bromide 0.02 % inhalation soln 4 times per day [Active]; Lasix 20 mg Oral tab once daily [Active]; Lyrica 100mg Oral 3 times per day [Active]; melatonin 3 mg Oral tab nightly [Active]; [place] 10-325 mg Oral tab every 6 hours [Active]; 17:25 Pepcid 20 mg Oral tab once daily [Active]; Synthroid 75 mcg Oral tab once daily aa5 [Active]; Vitamin D3 1,000 unit oral cap daily [Active]; Xanax 1 mg Oral tab twice a day [Active]; Cymbalta 60 mg oral cpDR once daily [Active]; - PMHx: 16:28 Anxiety; Cancer; neuropathy in hands; ca1 16:30 COPD; Dysphagia; Cognitive communication deficit; Chronic Pulmonary Edema; ca1 Osteomyelitis; Hypertension; Hypothyroidism; GERD; Depression; PVD; Vitamin D deficiency; Osteoporosis; Chronic pain; septicemia; Fracture of left femur; Cellulitis; - PSHx: 16:31 right above the knee amputation; mouth CA removed; Cholecystectomy; Hysterectomy; ca1 Breast biopsy; Knee surgery; 16:30 Left-below the knee amputation; Pain pump; ca1 - Immunization history:: Pneumococcal vaccine is not up to date, Flu vaccine is not up to date. - Social history:: Patient/guardian denies using alcohol, street drugs, The patient lives with family, Smoking status: Patient uses tobacco products, smokes one-half pack cigarettes per day. - Family history:: not pertinent. - Ebola Screening: : Patient denies exposure to infectious person Patient denies travel to an Ebola-affected area in the 21 days before illness onset. ROS: 16:30 Constitutional: Negative for fever, chills, and weight loss, Neck: Negative for injury, ma2 pain, and swelling, Abdomen/GI: Negative for abdominal pain, nausea, diarrhea, and constipation. 16:30 All other systems are negative. Exam: 16:30 Constitutional: This is a well developed, well nourished patient who is awake, alert, ma2 and in no acute distress. Chest/axilla: Normal chest wall appearance and motion. Nontender with no deformity. No lesions are appreciated. Cardiovascular: Regular rate and rhythm with a normal S1 and S2. No gallops, murmurs, or rubs. Normal PMI, no JVD. No pulse deficits. Respiratory: Lungs have equal breath sounds bilaterally, clear to auscultation and percussion. No rales, rhonchi or wheezes noted. No increased work of breathing, no retractions or nasal flaring. Abdomen/GI: Soft, non-tender, with normal bowel sounds. No distension or tympany. No guarding or rebound. No evidence of tenderness throughout. MS/ Extremity: Pulses equal, no cyanosis. Neurovascular intact. Full, normal range of motion. Neuro: Awake and alert, GCS 15, oriented to person, place, time, and situation. Cranial nerves II-XII grossly intact. Motor strength 5/5 in all extremities. Sensory grossly intact. Cerebellar exam normal. Normal gait. Vital Signs: 16:18 BP 105 / 52; Pulse 105; Resp 22; Temp 100.1; Pulse Ox 97% on 2 lpm NC; ca1 16:51 Weight 47.72 kg; ca1 17:18 BP 117 / 49; Pulse 100; Resp 17 S; Temp 100.6(C); Pulse Ox 100% on 2 lpm NC; ca1 18:15 BP 97 / 79; Pulse 98; Resp 18; Pulse Ox 100% 2 lpm ; ca1 19:20 BP 110 / 44; Pulse 106; Resp 19; Temp 100.4(C); Pulse Ox 98% on 2 lpm NC; ea 20:02 BP 97 / 51; Pulse 91; Resp 18; Temp 98.5(O); Pulse Ox 100% ; ea 20:46 BP 108 / 60; Pulse 90; Resp 17; Temp 98.4(O); Pulse Ox 99% on 2 lpm NC; ea MDM: 16:23 Patient medically screened. ma2 16:30 Differential diagnosis: viral Infection, bacterial infection, bronchitis, pneumonia ma2 UTI, gastroenteritis. 16:37 ED course: called dr. chow office twice over the last 2 hrs, patient would like to get ma2 hold of him before gets admitted . 17:26 Data reviewed: vital signs, nurses notes, lab test result(s), radiologic studies. ma2 Sepsis 6 hour Focused Exam: Heart: Irregular rhythm. Tachycardia noted. Lungs: noted to be clear bilaterally. Capillary refill examination performed. Capillary refill noted to be brisk. Peripheral pulse evaluation performed. Peripheral pulses noted to be 3+ normal. Skin examination performed. Skin noted to have normal turgor. Current patient vital signs reviewed: Yes. Neuro: Patient's neurological exam has improved from previous exam. Respiratory: Respiratory exam improved from previous exam. Response to treatment: the patient's symptoms have markedly improved after treatment. ED course: discussed with dr. bo. 12/14 16:24 Order name: Basic Metabolic Panel; Complete Time: 17:19 [facility] 12/14 16:24 Order name: Blood Culture Adult (2) [facility] 12/14 16:24 Order name: CBC with Diff; Complete Time: 17:19 [facility] 12/14 16:24 Order name: Ckmb; Complete Time: 17:19 [facility] 12/14 16:24 Order name: CPK; Complete Time: 17:19 [facility] 12/14 16:24 Order name: Lactate [facility] 12/14 16:24 Order name: LFT's; Complete Time: 17:19 [facility] 12/14 16:24 Order name: Lipase; Complete Time: 17:19 [facility] 12/14 16:24 Order name: Procalcitonin [facility] 12/14 16:24 Order name: Protime (+inr); Complete Time: 17:16 [facility] 12/14 16:24 Order name: Ptt, Activated; Complete Time: 17:16 [facility] 12/14 16:24 Order name: Troponin (emerg Dept Use Only); Complete Time: 17:19 [facility] 12/14 16:24 Order name: Urine Microscopic Only [facility] 12/14 17:21 Order name: Urine Dipstick--Ancillary (enter results) bd 12/14 16:24 Order name: Chest Single View XRAY [facility] 12/14 16:24 Order name: Accucheck; Complete Time: 17:19 [facility] 12/14 16:24 Order name: Cardiac monitoring; Complete Time: 16:32 [facility] 12/14 16:24 Order name: EKG - Nurse/Tech; Complete Time: 16:31 [facility] 12/14 16:24 Order name: IV Saline Lock - Large Bore; Complete Time: 16:44 pr12/14 16:24 Order name: Labs collected and sent; Complete Time: 16:45 [facility] 12/14 16:24 Order name: O2 Per Protocol; Complete Time: 16:45 [facility] 12/14 16:24 Order name: O2 Sat Monitoring; Complete Time: 16:45 [facility] 12/14 16:24 Order name: Urine Dipstick-Ancillary (obtain specimen); Complete Time: 17:19 [facility] 12/14 17:19 Order name: Anderson: VO obtained at 1655; Complete Time: 17:32 ca1 12/14 17:53 Order name: EKG Electrocardiogram EDMS 12/14 18:17 Order name: RAD EDMS Administered Medications: 17:00 Drug: NS 0.9% (30 ml/kg) 30 ml/kg Route: IV; Rate: bolus; Site: right forearm; ca1 17:02 Drug: Rocephin 1 grams Route: IV; Rate: calculated rate; Site: right forearm; ca1 19:40 Follow up: Response: No adverse reaction; IV Status: Completed infusion ea 17:20 Drug: Tylenol Suppository 650 mg Route: [place]; ca1 19:50 Follow up: Response: No adverse reaction; Temperature is decreased ea Point of Care Testing: Blood Glucose: 16:55 Blood Glucose: 148 mg/dL; ca1 Ranges: Critical Glucose Levels:Adult <50 mg/dl or >400 mg/dl <40 mg/dl or >180 mg/dl Disposition: 12/14/18 17:49 Hospitalization ordered by Onelia Bo for Observation. Preliminary diagnosis are Cystitis, unspecified without hematuria, Sepsis due to other Gram-negative organisms. - Bed requested for Telemetry/MedSurg (observation). - Status is Observation. ea - Condition is Stable. - Problem is new. - Symptoms are unchanged. UTI on Admission? Yes Signatures: Dispatcher [employer] EDMS Karly Lugo Audri RN RN aa5 Roselia Urias RN RN ea Alzahri, Mohammad, MD MD ma2 Juanis Lane RN RN ca1 Corrections: (The following items were deleted from the chart) 18:22 17:49 Hospitalization Ordered by Onelia Bo MD for Observation. Preliminary diagnosis bd is Cystitis, unspecified without hematuria; Sepsis due to other Gram-negative organisms. Bed requested for Telemetry/MedSurg (observation). Status is Observation. Condition is Stable. Problem is new. Symptoms are unchanged. UTI on Admission? Yes. ma2 20:58 18:22 12/14/2018 17:49 Hospitalization Ordered by Onelia Bo MD for Observation. ea Preliminary diagnosis is Cystitis, unspecified without hematuria; Sepsis due to other Gram-negative organisms. Bed requested for Telemetry/MedSurg (observation). Status is Observation. Condition is Stable. Problem is new. Symptoms are unchanged. UTI on Admission? Yes. bd
--- NOTE | 2018-12-14 18:16 | RAD REPORT ---
EXAM DESCRIPTION: RAD - Chest Single View - 12/14/2018 6:05 pm CLINICAL HISTORY: Cough, lethargy, shortness of breath COMPARISON: April 2016 TECHNIQUE: AP portable chest image was obtained 1802 hours . FINDINGS: Patient has extensive interstitial thickening throughout the lung [place] increased over co mparison. Alveolar opacification is minimal in the right lung base. Heart size is upper normal. Vascu lature is increased over the comparison. No measurable pleural effusion and no pneumothorax. No acute bony abnormality seen. No acute aortic findings suspected. IMPRESSION: Vascular engorgement with increased interstitial opacification throughout the lung field s. Lung markings are focally more prominent in the right base. Collective findings favor a failure or volume overload pattern. Superimposed or concurrent right base pneumonia possible as well.
[2018-12-14 18:25] LABS: Urine Bacteria LOADED /HPF (<20); Urine Culture Reflex Order REFLEXED; Urine Mucus 1+ /HPF (NONE SEEN)
[2018-12-14 20:20] LABS: Urine Blood 2+ (NEG); Urine Glucose NEGATIVE (NEG); Urine Protein 2+ (NEG); Urine pH 6.5 (5.0-7.0)
[2018-12-14] MEDS ORDERED: ONDANSETRON 4 MG/2 ML VIAL IV PRN (20:48)
--- NOTE | 2018-12-14 20:48 | EKG ---
Test Date: 2018-12-14 Test Time: 16:18:26 Net Software Developer: EVELINA MEASUREMENT RESULTS: Intervals: Rate: 108 CA: 216 QRSD: 86 QT: 304 QTc: 407 [place]: P: 76 CA: 216 QRS: 7 T: 45 INTERPRETIVE STATEMENTS: Sinus tachycardia with 1st degree AV block with premature atrial complexes Otherwise normal ECG Compared to ECG 04/28/2016 09:04:45 First degree AV block now present Left ventricular hypertrophy no longer present Early repolarization no longer present Electronically Signed On 12-14-18 20:47:38 [employer]ITARY ENGINEERING TEACHER by Kelvin Pendleton
[2018-12-14] MEDS: NA CHLORIDE 0.9% 1,000 ML IV SCH (22:22)
[2018-12-14] MEDS ORDERED: POTASSIUM 25 MEQ EFFERV TAB PO ONE (23:48)
[2018-12-15 00:04] VITALS: BMI 16.2
[2018-12-15] MEDS: ACETAMINOPHEN 500 MG TAB PO PRN ×3 (04:41→15:48)
[2018-12-15] MEDS: NA CHLORIDE 0.9% 1,000 ML IV SCH ×3 (04:42→21:21)
--- NOTE | 2018-12-15 04:55 | HP ---
Date of Admission: 12/14/2018 Chief Complaint: Generalized weakness. Code Status: Full. History Of Present Illness: The patient is a 78-year-old female with a past medical history of arthr itis, peripheral vascular disease, hypothyroidism, GERD, pancreatitis, COPD, neuropathy, hypertension , comes in with UTI. The patient is a long term resident. The patient's symptoms are constant, m oderate, progressively worsening. In the ER, the patient's workup revealed elevated white count. He art rate was 105, AFib with RVR, apparently this is new. Temperature was 100.6. The patient otherwi se denies any chest pain, cough, fever, or chills. The patient received IV fluid bolus and Rocephin, referred for admission. When seen in the ER, she was awake, alert, oriented x3, and in some mild di stress. Past Medical History: Arthritis, peripheral vascular disease, hypothyroidism, GERD, pancreatitis, [place] PD, neuropathy, hypertension. Surgical History: Resection of meningioma, cholecystectomy, right above-knee amputation, left below- knee amputation, hysterectomy, left leg fracture and external fixation. Allergies: PENICILLIN CAUSES RASH. ASPIRIN CAUSES SHORTNESS OF BREATH. ADHESIVE TAPE. Medications: List reviewed. Family History: Father had hypertension. Social History: The patient states she smokes 2 cigarettes every week when she is having an outing f rom the long term. No alcohol use or illicit drug use. The patient is a resident of [facility]. Review of Systems: A 10-point system reviewed, negative except as per HPI. Physical Examination: Vital Signs: Blood pressure 105/52, pulse 105, respirations 22, temperature 100.6, pulse oximetry 97 % on 2 L. General: Awake, alert, oriented x3. Some mild distress. Elderly female, ill-appearing. HEENT: Normocephalic, atraumatic. PERRLA. EOMI. Dry mucous membranes. Oropharynx is clear. Conj unctivae anicteric. Neck: Supple. No JVD. Trachea midline. CV: S1, S2. Irregularly irregular. Respiratory: Clear to auscultation bilaterally. No wheezing or stridor. Gastrointestinal: Abdomen is soft, nontender, nondistended. Positive bowel sounds. No guarding or rigidity. Musculoskeletal: Right above-knee amputation and left below-knee amputation. Skin: The patient has morphine pump in place. Neuro: Cranial nerves 2 through 12 intact grossly. No focal neurological deficit. Speech is normal . Laboratory Data: Sodium 136, potassium 3.4, chloride 99, CO2 28, BUN 13, creatinine 1.04, glucose 14 4, lactate 3.3, calcium 10, AST 13, ALT 15, alkaline phosphatase 125, albumin 2.9. Procalcitonin 0.1 5. INR 1.13. WBC 13.1, H and H 11.2, 34.8, platelets 211. UA pending. Chest x-ray shows vascular engorgement with increased interstitial opacification throughout the lung [place]. Lung markings foca lly more prominent in the right base. Collective findings favor a failure or volume overload pattern superimposed on concurrent right base pneumonia, possible as well. Assessment And Plan: A 78-year-old female with: 1.Urinary tract infection, acute cystitis, without hematuria, was started on Rocephin. 2.Systemic inflammatory response syndrome. Heart rate elevated, temperature 100.6. White count is elevated. Pro count was normal; however, lactate is elevated at 3.3. We will bolus with IV fluids. Watch for signs of sepsis. Obtain cultures. 3.Hypokalemia. Replace and monitor. 4.Atrial fibrillation, with rate control. Currently does not have any history of atrial fibrillatio n. Previous EKG from 2016 did not show atrial fibrillation. We will start on rate control; however, currently the patient is hypotensive. We will use p.r.n. sparingly. 5.Generalized osteoarthritis. 6.Chronic back pain. The patient does have morphine pump that is active. 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 8.Chronic obstructive pulmonary disease. The patient continues to smoke. 9.Nicotine dependence with cigarette smoking. 10.Neuropathy. 11.Gastroesophageal reflux disease. 12.Hypothyroidism. 13.Peripheral vascular disease. Plan: Admit the patient to Med-Surg, place as inpatient, follow up on urine cultures. Code status i s full. SA/MODL Voice ID: [id number]
[2018-12-15 06:02] LABS: Absolute Lymphocytes (CBC) 1.1 K/uL (0.7-4.9); Absolute Neutrophil 14.8 K/uL (1.8-8.0); Basophils % 0.5 % (0-1.3); Hematocrit 31.9 % (36.0-45.0); Lymphocytes % 6.3 % (15.3-44.8); MPV 9.1 fL (7.6-11.3); RBC Red Blood Cell Count 3.92 M/uL (3.86-4.86)
[2018-12-15 06:44] LABS: Albumin 2.6 g/dL (3.4-5.0); Bilirubin Total 0.4 mg/dL (0.2-1.0); Potassium 3.9 mmol/L (3.5-5.1); Protein, Total 6.9 g/dL (6.4-8.2)
[2018-12-15 06:45] LABS: Magnesium 1.3 mg/dL (1.8-2.4)
[2018-12-15] MEDS ORDERED: Magnesium Sulfate 2gm IVPB 2 G/50 ML BAG IV ONE (06:48)
[2018-12-15] MEDS ORDERED: POTASSIUM 25 MEQ EFFERV TAB PO ONE (07:00)
[2018-12-15 08:39] LABS: Blood Morphology Comment NOT SEEN (NOT SEEN); Platelet Estimate ADEQ; Urine White Blood Cell Casts OK
[2018-12-15] MEDS ORDERED: CEFTRIAXONE 1 GM/NS 50 ML 1 GM/50 ML BAG IV SCH (09:00)
[2018-12-15] MEDS: ENOXAPARIN 40 MG/0.4 ML SQ SCH (09:15)
[2018-12-15] MEDS: ASPIRIN EC 81 MG TAB PO SCH (09:15)
[2018-12-15] MEDS: CEFTRIAXONE/SWI 1gm 1 GM/10 ML SYR IV SCH ×2 (09:16→21:21)
--- NOTE | 2018-12-15 14:42 | P.PN ---
Subjective Date of Service: 12/15/18 Subjective: No new changes, No C/O voiced Patient seen and examined at bedside. No family at bedside. Chart reviewed and case discussed with nursing staff. Patient is a resident of [facility]. Patient is sleepy, but arousable Able to answer questions appropriate Review of Systems 10-point ROS is otherwise unremarkable Physical Examination - Vital Signs Temperature: 97.6 F Blood Pressure: 139/59 Pulse: 94 Respirations: 18 Pulse Ox (%): 97 - Physical Exam General: Alert, In no apparent distress, Other (Elderly, ill-appearing) HEENT: Atraumatic, PERRLA, EOMI Neck: Supple, JVD not distended Respiratory: Clear to auscultation bilaterally, Normal air movement Cardiovascular: Regular rate/rhythm, Normal S1 S2 Gastrointestinal: Normal bowel sounds, No tenderness - Studies Laboratory Data (last 24 hrs) 12/14/18 16:40: PT 13.4 H, INR 1.13, APTT 32.9 12/14/18 16:40: WBC 13.1 H, Hgb 11.2 L, Hct 34.8 L, Plt Count 211 12/14/18 16:40: Sodium 136, Potassium 3.4 L, BUN 13, Creatinine 1.04, Glucose 144 H, Total Bilirubin 0.5, AST 13 L, ALT 15, Alkaline Phosphatase 125 H, Lipase 66 L Assessment And Plan - Plan A 78-year-old female with: Urinary tract infection, acute cystitis, without hematuria Continue Rocephin Urine Culture still pending. Systemic inflammatory response syndrome. Heart rate still elevated, temperature 100.4 at 5:00 a.m.. Fever curve improving White count elevated from yesterday Continue IV fluids Atrial fibrillation, with great control No prior history of atrial fibrillation. Rate now better controlled this morning, the patient is still in AFib Will continue p.r.n. medications at this time, blood pressure is better now. 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 Chronic obstructive pulmonary disease Current nicotine dependence with cigarette smoking counseled on smoking cessation Gastroesophageal reflux disease. Hypothyroidism Peripheral vascular disease DVT prophylaxis: Lovenox GI prophylaxis: None Diet: Heart healthy Disposition: Pending symptomatic improvement. Follow up on urine cultures Time Spent Managing PTS Care (In Minutes): 35
[2018-12-15] MEDS ORDERED: ALBUTEROL 2.5 MG/3 ML NEB SOL IH PRN (22:06)
[2018-12-15] MEDS ORDERED: IPRATROPIUM BROM 0.5MG/2.5ML IH PRN (22:06)
[2018-12-15] MEDS: AMITRIPTYLINE 25 MG TAB PO SCH ×2 (22:06→23:17)
[2018-12-15] MEDS ORDERED: DOCUSATE NA 100 MG CAP PO PRN (22:06)
[2018-12-15] MEDS ORDERED: TRIAMCINOLONE 0.1% CREAM 15GM TOP PRN (22:06)
[2018-12-15] MEDS: ALPRAZOLAM 1 MG TABLET PO SCH (23:17)
[2018-12-15] MEDS: HYDROCODONE/APAP 10/325 TAB PO SCH (23:17)
[2018-12-16] MEDS: HYDROCODONE/APAP 10/325 TAB PO SCH ×4 (06:14→22:39)
[2018-12-16] MEDS: LEVOTHYROXINE SOD 0.075 MG TAB PO SCH (06:14)
[2018-12-16 06:19] LABS: BUN Blood Urea Nitrogen 11 mg/dL (7-18); Bicarbonate 27 mmol/L (21-32); Glucose Level 75 mg/dL (74-106); Potassium 4.5 mmol/L (3.5-5.1); Sodium Level 139 mmol/L (136-145)
[2018-12-16] MEDS: HYPROMELLOSE OPTH SCH ×3 (09:00→20:51)
[2018-12-16] MEDS ORDERED: DRISDOL (VITAMIN D=ERGOCALCIFEROL) 50000 UNIT CAP PO SCH (09:00)
[2018-12-16] MEDS: DEXTRAN 70 OPTH SCH ×3 (09:00→20:51)
[2018-12-16] MEDS: HOME MED 1 EA UNK (Fluticasone/Vilanterol [Breo Ellipta 100-25 Mcg Inh] 1 PUFF) IH SCH (09:00)
[2018-12-16] MEDS: PREGABALIN 50 MG CAP PO SCH ×3 (09:06→20:45)
[2018-12-16] MEDS: DULOXETINE 30 MG CAP PO SCH (09:06)
[2018-12-16] MEDS: VITAMIN D 1000 UNIT TAB PO SCH (09:07)
[2018-12-16] MEDS: FUROSEMIDE 20 MG TABLET PO SCH (09:08)
[2018-12-16] MEDS: CEFTRIAXONE/SWI 1gm 1 GM/10 ML SYR IV SCH ×2 (09:08→20:48)
[2018-12-16] MEDS: FOLIC ACID 1 MG TABLET PO SCH (09:08)
[2018-12-16] MEDS: ASPIRIN EC 81 MG TAB PO SCH (09:08)
[2018-12-16] MEDS: ENOXAPARIN 40 MG/0.4 ML SQ SCH (09:09)
[2018-12-16] MEDS: GABAPENTIN 400 MG CAP PO SCH ×3 (09:10→20:47)
[2018-12-16] MEDS: ALPRAZOLAM 1 MG TABLET PO SCH ×2 (09:12→20:48)
[2018-12-16] MEDS: NA CHLORIDE 0.9% 1,000 ML IV SCH ×3 (09:30→23:51)
[2018-12-16] MEDS: CALCIUM CARB 500MG/VIT D 200 IU TAB PO SCH (09:30)
--- NOTE | 2018-12-16 14:55 | P.PN ---
Subjective Date of Service: 12/16/18 Subjective: Improving Patient seen and examined at bedside. No family at bedside. Chart reviewed and case discussed with nursing staff. Patient is a resident of [facility]. Patient much more awake and alert this morning. Review of Systems 10-point ROS is otherwise unremarkable Physical Examination - Vital Signs Temperature: 96.9 F Blood Pressure: 129/96 Pulse: 86 Respirations: 16 Pulse Ox (%): 96 - Physical Exam General: Alert, In no apparent distress, Oriented x3 HEENT: Atraumatic, PERRLA, EOMI Neck: Supple, JVD not distended Respiratory: Clear to auscultation bilaterally, Normal air movement Cardiovascular: Regular rate/rhythm, Normal S1 S2 Gastrointestinal: Normal bowel sounds, No tenderness Musculoskeletal: No tenderness Integumentary: No rashes Neurological: Normal speech, Normal tone, Normal affect Assessment And Plan - Plan A 78-year-old female with: Urinary tract infection, acute cystitis, without hematuria Improving Continue Rocephin Urine Culture with 4+ gram-negative rods, pending sensitivities/culture. Systemic inflammatory response syndrome. Resolved. Afebrile overnight, normal heart rate and vital signs stable. Atrial fibrillation, with great control No prior history of atrial fibrillation. Rate now better controlled this morning, the patient is still in AFib Will continue p.r.n. medications at this time, blood pressure is better now. 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 Chronic obstructive pulmonary disease Current nicotine dependence with cigarette smoking counseled on smoking cessation Gastroesophageal reflux disease. Hypothyroidism Peripheral vascular disease DVT prophylaxis: Lovenox GI prophylaxis: None Diet: Heart healthy Disposition: Pending symptomatic improvement. Follow up on urine cultures. Likely discharge back to the longterm in the next 24-48 Discharge Plan: [facility]
[2018-12-16] MEDS: JUVEN PACKET PO SCH (20:46)
[2018-12-16] MEDS: AMITRIPTYLINE 25 MG TAB PO SCH (20:47)
[2018-12-16] MEDS ORDERED: MELATONIN 3 MG TABLET PO SCH (21:00)
[2018-12-16] MEDS ORDERED: FAMOTIDINE 20 MG TAB PO SCH (21:00)
[2018-12-17] MEDS: HYDROCODONE/APAP 10/325 TAB PO SCH ×2 (05:35→10:26)
[2018-12-17] MEDS: LEVOTHYROXINE SOD 0.075 MG TAB PO SCH (05:36)
[2018-12-17] MEDS ORDERED: ALENDRONATE 70 MG TAB PO SCH (06:00)
[2018-12-17] MEDS: DULOXETINE 30 MG CAP PO SCH (08:55)
[2018-12-17] MEDS: CEFTRIAXONE/SWI 1gm 1 GM/10 ML SYR IV SCH (08:56)
[2018-12-17] MEDS: ENOXAPARIN 40 MG/0.4 ML SQ SCH (08:57)
[2018-12-17] MEDS: FOLIC ACID 1 MG TABLET PO SCH (08:57)
[2018-12-17] MEDS: CALCIUM CARB 500MG/VIT D 200 IU TAB PO SCH (08:57)
[2018-12-17] MEDS: VITAMIN D 1000 UNIT TAB PO SCH (08:57)
[2018-12-17] MEDS: ASPIRIN EC 81 MG TAB PO SCH (08:57)
[2018-12-17] MEDS: GABAPENTIN 400 MG CAP PO SCH ×2 (08:57→14:12)
[2018-12-17] MEDS: ALPRAZOLAM 1 MG TABLET PO SCH (08:58)
[2018-12-17] MEDS: FUROSEMIDE 20 MG TABLET PO SCH (08:59)
[2018-12-17] MEDS: HYPROMELLOSE OPTH SCH (09:00)
[2018-12-17] MEDS: DEXTRAN 70 OPTH SCH (09:00)
[2018-12-17] MEDS: HOME MED 1 EA UNK (Fluticasone/Vilanterol [Breo Ellipta 100-25 Mcg Inh] 1 PUFF) IH SCH (09:00)
[2018-12-17] MEDS: JUVEN PACKET PO SCH (09:05)
[2018-12-17 10:16] VITALS: O2SAT 92
[2018-12-17] MEDS: PREGABALIN 50 MG CAP PO SCH ×2 (10:26→14:12)
[2018-12-17] MEDS ORDERED: IPRATROPIUM BROM 0.5MG/2.5ML IH PRN (14:00)
[2018-12-17] MEDS ORDERED: ALBUTEROL 2.5 MG/3 ML NEB SOL IH PRN (14:00)
[2018-12-17 14:52] VITALS: BP 99/44; TEMP 97.3
--- NOTE | 2018-12-24 10:13 | P.DS ---
Admission Date: 12/14/18 Discharge Date: 12/17/18 Disposition: TRANSFER TO SNF - REHAB Discharge Condition: GOOD Brief History of Present Illness: : The patient is a 78-year-old female with a past medical history of arthritis , peripheral vascular disease, hypothyroidism, GERD, pancreatitis, COPD, neuropathy, hypertension, comes in with UTI. The patient is a halfway resident. The patient's symptoms are constant, moderate, progressively worsening. In the ER, the patient's workup revealed elevated white count. Heart rate was 105, AFib with RVR, apparently this is new. Temperature was 100.6. The patient otherwise denies any chest pain, cough, fever, or chills. The patient received IV fluid bolus and Rocephin, referred for admission. When seen in the ER, she was awake, alert, oriented x3, and in some mild distress. Hospital Course: Urinary tract infection, acute cystitis, without hematuria Improving mentation, back to baseline prior to discharge. She was started on IV Rocephin, continued until urine culture sensitives were reported. Then she was swtiched to [facility] and discharged back to halfway on PO bactrim. Urine Culture with E.coli sensitive to po antibiotics. . Systemic inflammatory response syndrome. Resolved. Vital signs stable prior to discharge. Atrial fibrillation, with great control No prior history of atrial fibrillation. Rate now better controlled this morning,patient not in a. fib at discharge. 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 Chronic obstructive pulmonary disease Current nicotine dependence with cigarette smoking counseled on smoking cessation Gastroesophageal reflux disease. Hypothyroidism Peripheral vascular disease She remained otherwise stable Vital Signs/Physical Exam: Temp Pulse Resp BP Pulse Ox 97.3 F 63 17 99/44 L 92 12/17/18 12:00 12/17/18 12:00 12/17/18 12:00 12/17/18 12:00 12/17/18 12:00 General: Alert, In no apparent distress HEENT: Atraumatic, PERRLA, EOMI Neck: Supple, JVD not distended Respiratory: Clear to auscultation bilaterally, Normal air movement Cardiovascular: Regular rate/rhythm, Normal S1 S2 Gastrointestinal: Normal bowel sounds, No tenderness Musculoskeletal: No tenderness Integumentary: No rashes Neurological: Normal speech, Normal tone, Normal affect Lymphatics: No axilla or inguinal lymphadenopathy Laboratory Data at Discharge: WBC 17.0 K/uL (4.3-10.9) H D 12/15/18 05:28 Hgb 10.4 g/dL (12.0-15.0) L 12/15/18 05:28 Hct 31.9 % (36.0-45.0) L 12/15/18 05:28 Plt Count 198 K/uL (152-406) 12/15/18 05:28 PT 13.4 SECONDS (9.5-12.5) H 12/14/18 16:40 INR 1.13 12/14/18 16:40 APTT 32.9 SECONDS (24.3-36.9) 12/14/18 16:40 Sodium 139 mmol/L (136-145) 12/16/18 05:40 Potassium 4.5 mmol/L (3.5-5.1) 12/16/18 05:40 BUN 11 mg/dL (7-18) 12/16/18 05:40 Creatinine 0.63 mg/dL (0.55-1.3) 12/16/18 05:40 Glucose 75 mg/dL (74-106) 12/16/18 05:40 Magnesium 2.2 mg/dL (1.8-2.4) D 12/15/18 13:12 Total Bilirubin 0.4 mg/dL (0.2-1.0) 12/15/18 05:28 AST 17 U/L (15-37) 12/15/18 05:28 ALT 11 U/L (12-78) L 12/15/18 05:28 Alkaline Phosphatase 105 U/L (45-117) 12/15/18 05:28 Lipase 66 U/L (73-393) L 12/14/18 16:40 Home Medications: Albuterol Sulfate [Albuterol Sulfate 0.083% Neb Soln] 2.5 mg IH Q6HP PRN Alendronate Sodium [Fosamax] 70 mg PO Q7D 03/12/16 Alprazolam [Xanax] 1 mg PO BID 03/12/16 Calcium Carbonate/Vitamin D3 [Calcium 600-Vit D3 200 Tablet] 1 each PO DAILY Docusate [Colace Cap*] 100 mg PO BID PRN 03/12/16 Ergocalciferol (Vitamin D2) [Vitamin D 50,000 Unit Cap] 2,000 unit PO DAILY Famotidine [Pepcid] 20 mg PO BEDTIME 03/12/16 Folic Acid 1 mg PO DAILY 03/12/16 Gabapentin [Neurontin] 800 mg PO TID 03/12/16 Levothyroxine [Synthroid*] 75 mcg PO [id number] 03/12/16 Amitriptyline [Elavil*] 25 mg PO BEDTIME 12/15/18 Dextran 70/Hypromellose [Genteal Tears 0.1%-0.3% Drop] 1 gricel OPTH TID 12/15/18 Duloxetine [Cymbalta *] 90 mg PO DAILY 12/15/18 Fluticasone/Vilanterol [Breo Ellipta 100-25 Mcg INH] 1 puff IH DAILY 12/15/18 Furosemide [Lasix*] 20 mg PO DAILY 12/15/18 Hydrocodone 10/APAP 325 [[place] 10/325*] 1 tab PO Q6H 12/15/18 Ipratropium Neb [Atrovent*] 1 amp IH Q6H PRN 12/15/18 Melatonin [Melatonin*] 3 mg PO BEDTIME 12/15/18 Pregabalin [Lyrica*] 100 mg PO TID 12/15/18 Triamcinolone 0.1% Crm [Kenalog 0.1% Cream*] 1 gricel TOP BID PRN 12/15/18 Sulfamethoxazole/Trimethoprim [Bactrim Ds Tablet] 1 each PO Q12HR #10 tablet New Medications: Sulfamethoxazole/Trimethoprim [Bactrim Ds Tablet] 1 each PO Q12HR #10 tablet Patient Discharge Instructions: Follow up with the primary care physician in 1 week. New medications: Bactrim double-strength, an antibiotic for urinary tract infection. Please return to the ER for any worsening symptoms Diet: AHA Activity: Ad fabian Time spent managing pt's care (in minutes): 55
== END 2018-12-17 14:16 | DRG 872 ==
LOC: ER 16:16 → ERHOLD 17:51 → 2ND 20:03
PROVIDERS: ADMIT Family Medicine; ATTEND Family Medicine
DX: A41.9 Sepsis, unspecified organism (principal); N30.00 Acute cystitis without hematuria; B96.20 Unspecified Escherichia coli [E. coli] as the cause of diseases classified elsewhere; M15.9 Polyosteoarthritis, unspecified; E03.9 Hypothyroidism, unspecified; K21.9 Gastro-esophageal reflux disease without esophagitis; J44.9 Chronic obstructive pulmonary disease, unspecified; F17.210 Nicotine dependence, cigarettes, uncomplicated; G62.9 Polyneuropathy, unspecified; I10 Essential (primary) hypertension; G89.29 Other chronic pain; M54.5 Low back pain; I48.91 Unspecified atrial fibrillation; E87.6 Hypokalemia; Z89.512 Acquired absence of left leg below knee; Z89.511 Acquired absence of right leg below knee
CPT/HCPCS: 36415; 51702; 71045; 80048; 80053; 80076; 81003; 81015; 82550; 82553; 82962; 83605; 83690; 83735; 84145; 84484; 85025; 85610; 85730; 87040; 87077; 87086; 87088; 87186; 93005; 94760; 96365; 96366; 96375; 99285; J0696; J1650; J3475; J7030

== ENCOUNTER 2018-12-19 12:59 | Emergency (ER) | payer OTHER ==
--- OUTSIDE RECORDS SUMMARY | 2018-12-19 13:07 | XMS REPORT | CCD ---
:1940 Author Organization [facility] Care Team Providers Name Role Phone Federico [...] Suspended tablet 30 tab, Substitution Allowed, TAB [place] 10/325 oral tablet 1 tab, Route: PO, Drug 04/26/2013 04/27/2013 Discontinued Form: TAB, Dosing Weight 54.545, kg, Q4H, PRN Pain, Start date: 04/26/13 11:52:00, Duration: 30 day, Stop date: 05/26/13 11:51:00 Melatonin 3 mg oral tablet 3 mg, 1 tab, PO, 04/26/2013 Suspended Bedtime, PRN, 60 tab, for insomnia, Substitution Allowed, Maintenance, TAB [place] 10/325 oral tablet 1 tab, PO, BID, [...] PO, Daily, 04/26/2013 Suspended Substitution Allowed, TAB [place] 10/325 oral tablet 1 tab, Route: PO, Drug 04/26/2013 04/26/2013 Completed Form: MARTIR, Dosing Weight 54.545, kg, ONCE, PRN Pain, Start date: 04/26/13 14:48:00 Tylenol 500 mg, PO, Q4H, PRN, as 04/26/2013 Suspended needed for pain, Substitution Allowed, TAB Plavix 75 mg oral tablet 75 mg, 1 tab, PO, Daily, 04/26/2013 Ordered 30 tab, Substitution Allowed, TAB [place] 10/325 oral tablet 1 tab, PO, BID, [...] values reflect the clinical guidelines of the [place] [employer].3Interpretive Data: The reference range is based on the clinical practice guidelines of the [place] [employer] for diabetes screening; levels of [...]
--- OUTSIDE RECORDS SUMMARY | 2018-12-19 13:07 | XMS REPORT | CCD ---
:1940 Author Organization [facility] Care Team Providers Name Role [...] Ordered oral capsule 60 cap, 0 Refill(s) [place] 10/325 oral tablet 1 tab, Route: PO, Drug 12/27/2013 12/27/2013 Completed Form: TAB, Dosing Weight 50, kg, ONCE, Start date: 12/27/13 21:45:00, Stop date: 12/27/13 21:45:00Do not exceed 4gm/day of acetaminophen. (Same as: [place] 325/10) clopidogrel 75 mg oral 75 mg=1 [...] 12/28/2013 12/30/2013 Discontinued SUB-Q, Drug form: INJ, [id number], Dosing Weight 50, kg, Start date: 12/28/13 [...] values reflect the clinical guidelines of the [place] [employer].8Interpretive Data: Adult reference range values reflect the clinical guidelines of the [place] [employer].9Interpretive Data: Adult reference range values reflect the clinical guidelines of the [place] [employer].HEMATOLOGY Most recent to oldest 1 [...] Catch FREE TEXT SOURCE: FINAL REPORTS Final Tawbgv14,000 - 50,000 CFU/mL Proteus mirabilis 10,000 - 50,000 CFU/mL Enterococcus SpeciesPRELIMINARY REPORTS Preliminary Drefga36,000 - 50,000 CFU/mL Gram Negative Rods, Non-Lactose Fermenters Subculture In Progress Preliminary Ynjise42,000 - 50,000 CFU/mL Gram Negative Rods, Non-Lactose [...] Catch FREE TEXT SOURCE: FINAL REPORTS Final Rmlvbm99,000 - 50,000 CFU/mL Proteus mirabilis . 10,000 - 50,000 CFU/mL Enterococcus SpeciesPRELIMINARY REPORTS Preliminary ReportNo Growth; Holding Preliminary Nmedwa67,000 - 50,000 CFU/mL Gram Negative Rods, Non-Lactose Fermenters Identification And Sensitivity Pending . 10,000 - 50,000 CFU/mL Enterococcus Species Sensitivity Pending Preliminary Yrtmeg16,000 - 50,000 CFU/mL Proteus mirabilis Sensitivity Pending [...]
--- NOTE | 2018-12-19 14:22 | RAD REPORT ---
EXAM DESCRIPTION: RAD - Chest Single View - 12/19/2018 2:03 pm CLINICAL HISTORY: Hypoxia COMPARISON: December 14 TECHNIQUE: AP portable chest image was obtained 1358 hours . FINDINGS: No peripheral mass or consolidation. Acute failure or volume overload not suspected. Patie nt has very extensive interstitial lung disease. Heart size and vasculature are diminished from the c omparison. Left hemidiaphragm elevation is present along with left costophrenic angle blunting. No pn eumothorax. No acute bony abnormality seen. No acute aortic findings suspected. IMPRESSION: Small left pleural effusion is evident. Significant failure or volume overload are doubt ful. Patient has very extensive interstitial lung disease as a baseline. This can mask early edema and inf iltrate. Heart size and vasculature have diminished slightly since December 14.
[2018-12-19 15:08] LABS: Absolute Lymphocytes (CBC) 0.9 K/uL (0.7-4.9); Absolute Monocytes 0.7 K/uL (0.1-1.3); Basophils % 0.8 % (0-1.3); Eosinophils % 2.2 % (0-4.4); Hematocrit 33.4 % (36.0-45.0); Lymphocytes % 13.3 % (15.3-44.8); MPV 8.8 fL (7.6-11.3); Monocytes % 10.1 % (3.3-12.3); RBC Red Blood Cell Count 4.08 M/uL (3.86-4.86)
[2018-12-19] MEDS ORDERED: POTASSIUM 25 MEQ EFFERV TAB ONE (15:18)
[2018-12-19 16:19] LABS: Urine Amorphous Sediment 2+ /HPF (NONE SEEN); Urine Bacteria LOADED /HPF (<20); Urine Culture Reflex Order REFLEXED; Urine RBC <5 /HPF (NONE SEEN)
[2018-12-19 16:21] LABS: Urine Blood NEGATIVE (NEG); Urine Glucose NEGATIVE (NEG); Urine Protein 1+ (NEG); Urine pH 5.5 (5.0-7.0)
--- NOTE | 2018-12-19 16:57 | ER ---
Nurse's Notes [facility] Name: Bonnie Good Age: 78 yrs Sex: Female : 1940 Arrival Date: 12/19/2018 Time: 13:10 Bed 25 Private MD: Diagnosis: Urinary tract infection, site not specified;Chronic obstructive pulmonary disease, unspecified Presentation: 12/19 13:13 Presenting complaint: EMS states: called out due to low pulse ox of 88%, pt was 89 % on tl3 room air on arrival, 2 LPM per NC brought up sat to 96%, pt has no complaints of pain or SOB, was recently discharged from hospital for pneumonia. Transition of care: patient was not received from another setting of care. Onset of symptoms was December 19, 2018. Risk Assessment: Do you want to hurt yourself or someone else? Patient reports no desire to harm self or others. Initial Sepsis Screen: Does the patient meet any 2 criteria? No. Patient's initial sepsis screen is negative. Does the patient have a suspected source of infection? No. Patient's initial sepsis screen is negative. Care prior to arrival: Medication(s) given: Tylenol, 1000 mg, Oxygen administered. via nasal cannula. 13:13 Method Of Arrival: EMS: [facility] tl3 13:13 Acuity: ANDREINA 3 tl3 Triage Assessment: 13:31 General: Appears comfortable, slender, well developed, Behavior is calm, cooperative. tl3 Pain: Denies pain. EENT: No signs and/or symptoms were reported regarding the EENT system. Neuro: Level of Consciousness is awake, alert, obeys commands, Oriented to person, place, time, Appropriate for age. Cardiovascular: Patient's skin is warm and dry. Respiratory: Airway is patent Respiratory effort is even, unlabored, Respiratory pattern is regular, symmetrical, Onset: The symptoms/episode began/occurred today, the patient has mild shortness of breath Parent/caregiver reports the patient having low pulse ox of 88%. GI: No signs and/or symptoms were reported involving the gastrointestinal system. : No signs and/or symptoms were reported regarding the genitourinary system. Derm: No signs and/or symptoms reported regarding the dermatologic system. 20:39 Respiratory: Reports no complaints. tl3 Historical: - Allergies: 13:31 Aspirin; tl3 13:31 PENICILLINS; tl3 13:31 adhesive tape; tl3 - Home Meds: 13:31 albuterol sulfate 2.5 mg /3 mL (0.083 %) Inhl nebu PRN [Active]; amitriptyline 25 mg tl3 Oral tab once daily [Active]; Benadryl 25 mg Oral cap as needed [Active]; Breo Ellipta 100-25 mcg/dose inhalation dsdv once daily [Active]; Calcium 600 with Vitamin D3 600 mg(1,500mg) -400 unit Oral cap daily [Active]; Cymbalta 60 mg Oral cpDR 1 cap twice a day [Active]; Colace 100 mg Oral cap PRN for constipation [Active]; ergocalciferol (vitamin D2) 2,000 unit Oral tab daily [Active]; folic acid 1 mg Oral tab 1 tab once daily [Active]; Fosamax 70 mg Oral tab 1 tab once wkly [Active]; gabapentin 800 mg Oral tab 3 times per day [Active]; ipratropium bromide 0.02 % inhalation soln 4 times per day [Active]; Lasix 20 mg Oral tab once daily [Active]; levothyroxine 75 mcg tab 1 tab once daily [Active]; Lyrica 100mg Oral 3 times per day [Active]; melatonin 3 mg Oral tab nightly [Active]; Pepcid 20 mg Oral tab 1 tab once daily [Active]; [place] 10-325 mg Oral tab 1 tab every 6 hours [Active]; Xanax 1 mg Oral tab twice a day [Active]; - PMHx: 13:31 GERD; vitamin d deficiency; osteomyelitis; Anxiety; Cancer; Cellulitis; Chronic pain; tl3 chronic pulmonary edema; cognitive communication deficit; COPD; Depression; DYSPHAGIA; Fracture of left femur; Hypertension; Hypothyroidism; neuropathy in hands; Osteoporosis; PVD; septicemia; - Immunization history:: Adult Immunizations up to date. - Social history:: Smoking status: unknown. - Ebola Screening: : No symptoms or risks identified at this time. Screenin:40 Abuse screen: Denies threats or abuse. Nutritional screening: No deficits noted. tl3 Tuberculosis screening: No symptoms or risk factors identified. Fall Risk Secondary diagnosis (15 points) dementia. Assessment: 13:40 Reassessment: No changes from previously documented assessment. tl3 13:40 Cardiovascular: Rhythm is atrial fibrillation. Respiratory: Airway is patent tl3 Respiratory effort is even, unlabored, Breath sounds are coarse bilaterally. 15:06 Reassessment: No changes from previously documented assessment. Patient and/or family tl3 updated on plan of care and expected duration. Pain level reassessed. Patient is alert, oriented x 3, equal unlabored respirations, skin warm/dry/pink. pt resting quietly, no needs at this time. 17:23 Reassessment: Patient appears in no apparent distress at this time. No changes from tl3 previously documented assessment. Patient and/or family updated on plan of care and expected duration. Pain level reassessed. Patient is alert, oriented x 3, equal unlabored respirations, skin warm/dry/pink. pt resting, no needs at this time. 17:31 Reassessment: attempted to call [facility] at [phone], there was no tl3 answer. 18:11 Reassessment: No changes from previously documented assessment. Patient and/or family tl3 updated on plan of care and expected duration. Pain level reassessed. Patient is alert, oriented x 3, equal unlabored respirations, skin warm/dry/pink. pt sleeping, easily arroused. 18:13 Reassessment: called [facility], no answer notified charge nurse. tl3 19:16 Reassessment: Patient appears in no apparent distress at this time. No changes from tl3 previously documented assessment. Patient and/or family updated on plan of care and expected duration. Pain level reassessed. Patient is alert, oriented x 3, equal unlabored respirations, skin warm/dry/pink. attempted to call [facility], spoke with Stephanie nurse at facility she instructed me to call EMS for transport. Pt sleeping, in no distress. 19:24 Reassessment: spoke with Stephanie, she will arrange for transportation. tl3 20:34 Reassessment: Patient appears in no apparent distress at this time. No changes from tl3 previously documented assessment. Patient and/or family updated on plan of care and expected duration. Pain level reassessed. Patient is alert, oriented x 3, equal unlabored respirations, skin warm/dry/pink. outside sales account representative from [facility] here to transport pt back to facility. Vital Signs: 13:31 BP 112 / 62; Pulse 58; Resp 18; Temp 98.6; Pulse Ox 88% ; tl3 17:27 BP 108 / 61; Pulse 61; Resp 18; Pulse Ox 94% ; tl3 17:27 BP 93 / 49; Pulse 94; Resp 18; Pulse Ox 94% on R/A; tl3 18:11 BP 93 / 54; Pulse 91; Resp 18; Pulse Ox 93% ; tl3 19:16 BP 113 / 51; Pulse 94; Resp 20; Pulse Ox 96% on R/A; tl3 20:34 BP 101 / 46; Pulse 86; Resp 18; Pulse Ox 95% on R/A; tl3 ED Course: 13:10 Patient arrived in ED. tl3 13:10 Arm band placed on. tl3 13:14 Misty Alvares FNP-C [facility]. kb 13:14 Brad Cordero MD is Attending Physician. kb 13:16 Triage completed. tl3 13:40 Patient has correct armband on for positive identification. Placed in gown. Bed in low tl3 position. Call light in reach. Side rails up X2. window sash installer on. Pulse ox on. NIBP on. Lights dimmed. Warm blanket given. Pillow given. Elevated Turned. Bath given. Cleaned of incontinence. Linen changed. One-on-one care X 30 minutes. 13:40 No provider procedures requiring assistance completed. Initial lab(s) drawn, by , tl3 sent to lab. Inserted saline lock: 22 gauge in right upper arm, using aseptic technique. Blood collected. 14:04 Chest Single View XRAY In Process Unspecified. EDMS 14:59 Thania Acosta, JOLEEN is Primary Nurse. tl3 20:36 IV discontinued, intact, bleeding controlled, No redness/swelling at site. Pressure tl3 dressing applied. Administered Medications: 15:22 Drug: Potassium Effervescent Tablet 50 mEq Route: PO; tl3 18:13 Follow up: Response: No adverse reaction tl3 16:59 Drug: Albuterol 2.5 mg Route: Inhalation; tl3 17:29 Follow up: Response: No adverse reaction tl3 16:59 Drug: AtroVENT Aerosol 0.5 mg Route: Inhalation; tl3 17:28 Follow up: Response: No adverse reaction tl3 18:10 Drug: NS 0.9% 500 ml Route: IV; Rate: bolus; Site: right upper arm; Delivery: Primary tl3 tubing; 19:22 Follow up: IV Status: Infusion continued; IV Intake: 500ml tl3 Intake: 19:22 IV: 500ml; Total: 500ml. tl3 Outcome: 16:56 Discharge ordered by MD. ocampo 20:36 Discharged to assisted. Report called to stephanie tl3 20:36 Condition: stable 20:36 Discharge instructions given to assisted, Instructed on discharge instructions, follow up and referral plans. Demonstrated understanding of instructions, follow-up care. 20:39 Patient left the ED. tl3 Signatures: Dispatcher [employer] EDMisty Moralez, EARLY EDUCATION TEACHER-C EARLY EDUCATION TEACHER-Thania Zhao, RN RN tl3 Corrections: (The following items were deleted from the chart) 19:29 19:16 Reassessment: Patient appears in no apparent distress at this time. No changes tl3 from previously documented assessment. Patient and/or family updated on plan of care and expected duration. Pain level reassessed. Patient is alert, oriented x 3, equal unlabored respirations, skin warm/dry/pink. attempted to call [facility], spoke with Stephanie nurse at facility she instructed me to call EMS for transport. Pt sleeping, in no distress tl3
--- NOTE | 2018-12-19 16:58 | EDPHYS ---
Physician Documentation [facility] Name: Bonnie Good Age: 78 yrs Sex: Female : 1940 Arrival Date: 12/19/2018 Time: 13:10 Bed 25 Private MD: ED Physician Brad Cordero HPI: 12/19 16:50 This 78 yrs old Female presents to ER via EMS with complaints of low O2 sat. kb 16:50 The patient or guardian reports O2 sat 88%. Onset: The symptoms/episode began/occurred kb just prior to arrival. Modifying factors: The symptoms are alleviated by nothing. the symptoms are aggravated by nothing. Associated signs and symptoms: The patient has no apparent associated signs or symptoms. Severity of symptoms: At their worst the symptoms were mild in the emergency department the symptoms are unchanged. The patient has experienced similar episodes in the past, chronically. The patient has not recently seen a physician. alf sent pt for low O2 sat (88% on room air). Pt has history of COPD. Pt denies any symptoms or complaints at this time. Recently discharged from hospital . Historical: - Allergies: 13:31 Aspirin; tl3 13:31 PENICILLINS; tl3 13:31 adhesive tape; tl3 - Home Meds: 13:31 albuterol sulfate 2.5 mg /3 mL (0.083 %) Inhl nebu PRN [Active]; amitriptyline 25 mg tl3 Oral tab once daily [Active]; Benadryl 25 mg Oral cap as needed [Active]; Breo Ellipta 100-25 mcg/dose inhalation dsdv once daily [Active]; Calcium 600 with Vitamin D3 600 mg(1,500mg) -400 unit Oral cap daily [Active]; Cymbalta 60 mg Oral cpDR 1 cap twice a day [Active]; Colace 100 mg Oral cap PRN for constipation [Active]; ergocalciferol (vitamin D2) 2,000 unit Oral tab daily [Active]; folic acid 1 mg Oral tab 1 tab once daily [Active]; Fosamax 70 mg Oral tab 1 tab once wkly [Active]; gabapentin 800 mg Oral tab 3 times per day [Active]; ipratropium bromide 0.02 % inhalation soln 4 times per day [Active]; Lasix 20 mg Oral tab once daily [Active]; levothyroxine 75 mcg tab 1 tab once daily [Active]; Lyrica 100mg Oral 3 times per day [Active]; melatonin 3 mg Oral tab nightly [Active]; Pepcid 20 mg Oral tab 1 tab once daily [Active]; [place] 10-325 mg Oral tab 1 tab every 6 hours [Active]; Xanax 1 mg Oral tab twice a day [Active]; - PMHx: 13:31 GERD; vitamin d deficiency; osteomyelitis; Anxiety; Cancer; Cellulitis; Chronic pain; tl3 chronic pulmonary edema; cognitive communication deficit; COPD; Depression; DYSPHAGIA; Fracture of left femur; Hypertension; Hypothyroidism; neuropathy in hands; Osteoporosis; PVD; septicemia; - Immunization history:: Adult Immunizations up to date. - Social history:: Smoking status: unknown. - Ebola Screening: : No symptoms or risks identified at this time. ROS: 16:49 Constitutional: Negative for fever, chills, and weight loss, Neck: Negative for injury, kb pain, and swelling, Cardiovascular: Negative for chest pain, palpitations, and edema, Respiratory: Negative for shortness of breath, cough, wheezing, and pleuritic chest pain, Abdomen/GI: Negative for abdominal pain, nausea, vomiting, diarrhea, and constipation, Back: Negative for injury and pain, MS/Extremity: Negative for injury and deformity, Skin: Negative for injury, rash, and discoloration, Neuro: Negative for headache, weakness, numbness, tingling, and seizure. Exam: 16:50 Constitutional: This is a well developed, well nourished patient who is awake, alert, kb and in no acute distress. Head/Face: Normocephalic, atraumatic. Chest/axilla: Normal chest wall appearance and motion. Nontender with no deformity. No lesions are appreciated. Cardiovascular: Regular rate and rhythm with a normal S1 and S2. No gallops, murmurs, or rubs. Normal PMI, no JVD. No pulse deficits. Respiratory: Lungs have equal breath sounds bilaterally, clear to auscultation and percussion. No rales, rhonchi or wheezes noted. No increased work of breathing, no retractions or nasal flaring. Abdomen/GI: Soft, non-tender, with normal bowel sounds. No distension or tympany. No guarding or rebound. No evidence of tenderness throughout. Neuro: Awake and alert, GCS 15, oriented to person, place, time, and situation. Cranial nerves II-XII grossly intact. Motor strength 5/5 in all extremities. Sensory grossly intact. Cerebellar exam normal. Normal gait. Vital Signs: 13:31 BP 112 / 62; Pulse 58; Resp 18; Temp 98.6; Pulse Ox 88% ; tl3 17:27 BP 108 / 61; Pulse 61; Resp 18; Pulse Ox 94% ; tl3 17:27 BP 93 / 49; Pulse 94; Resp 18; Pulse Ox 94% on R/A; tl3 18:11 BP 93 / 54; Pulse 91; Resp 18; Pulse Ox 93% ; tl3 19:16 BP 113 / 51; Pulse 94; Resp 20; Pulse Ox 96% on R/A; tl3 20:34 BP 101 / 46; Pulse 86; Resp 18; Pulse Ox 95% on R/A; tl3 MDM: 13:14 Patient medically screened. kb 16:30 Physician consultation: Leslie Vann MD was contacted at 16:30, discussed pt's kb discharge on 12/17/18. Pt was sent back to [facility] on Macrobid. Will continue that upon discharge.. 16:48 Data reviewed: vital signs, nurses notes. kb 16:55 Counseling: I had a detailed discussion with the patient and/or guardian regarding: the kb historical points, exam findings, and any diagnostic results supporting the discharge/admit diagnosis, lab results, radiology results, the need for outpatient follow up, a family practitioner, to return to the emergency department if symptoms worsen or persist or if there are any questions or concerns that arise at home. 16:55 Data interpreted: Pulse oximetry: on room air is 88 %. Interpretation: borderline. ED kb course: O2 sat 93% on room air after treatment. 12/19 13:17 Order name: CBC with Diff; Complete Time: 15:21 kb 12/19 13:17 Order name: Basic Metabolic Panel; Complete Time: 14:50 kb 12/19 13:17 Order name: Lactate; Complete Time: 14:50 kb 12/19 13:17 Order name: Procalcitonin; Complete Time: 15:14 kb 12/19 15:23 Order name: UA MICROSCOPIC; Complete Time: 16:22 tl3 12/19 15:26 Order name: Urine Dipstick--Ancillary (enter results); Complete Time: 16:22 eb 12/19 13:17 Order name: IV Start; Complete Time: 14:59 kb 12/19 13:17 Order name: Chest Single View XRAY; Complete Time: 14:27 kb 12/19 16:22 Order name: Urine Culture EDMS Administered Medications: 15:22 Drug: Potassium Effervescent Tablet 50 mEq Route: PO; tl3 18:13 Follow up: Response: No adverse reaction tl3 16:59 Drug: Albuterol 2.5 mg Route: Inhalation; tl3 17:29 Follow up: Response: No adverse reaction tl3 16:59 Drug: AtroVENT Aerosol 0.5 mg Route: Inhalation; tl3 17:28 Follow up: Response: No adverse reaction tl3 18:10 Drug: NS 0.9% 500 ml Route: IV; Rate: bolus; Site: right upper arm; Delivery: Primary tl3 tubing; 19:22 Follow up: IV Status: Infusion continued; IV Intake: 500ml tl3 Disposition: 12/19/18 16:56 Discharged to Home. Impression: Urinary tract infection, site not specified, Chronic obstructive pulmonary disease, unspecified. - Condition is Stable. - Discharge Instructions: Chronic Obstructive Pulmonary Disease, Urinary Tract Infection, Adult, [id number]. - Medication Reconciliation Form, Thank You Letter, Antibiotic Education, Prescription Opioid Use form. - Follow up: Emergency Department; When: As needed; Reason: Worsening of condition. Follow up: Private Physician; When: 2 - 3 days; Reason: Recheck today's complaints, Continuance of care, Re-evaluation by your physician. - Notes: Continue macrobid previously prescibedfor UTI Addendum: 12/22/2018 20:34 Co-signature as Attending Physician, Brad Cordero MD Available for consultation at p s1 all times . Signatures: Dispatcher [employer] EDMS Misty Alvares, FAUSTO-C FIELD ENUMERATOR-Brad Antonio MD MD ps1 Thania Acosta RN RN tl3 Corrections: (The following items were deleted from the chart) 12/19 16:52 16:50 The patient has shortness of breath and the patient has a history of COPD, kb kb 16:52 16:50 This 78 yrs old Female presents to ER via EMS with complaints of kb Shortness Of Breath. kb 20:39 16:56 12/19/2018 16:56 Discharged to Home. Impression: Urinary tract infection, site tl3 not specified; Chronic obstructive pulmonary disease, unspecified. Condition is Stable. Forms are Medication Reconciliation Form, Thank You Letter, Antibiotic Education, Prescription Opioid Use. Follow up: Emergency Department; When: As needed; Reason: Worsening of condition. Follow up: Private Physician; When: 2 - 3 days; Reason: Recheck today's complaints, Continuance of care, Re-evaluation by your physician. kb
[2018-12-19] MEDS ORDERED: IPRATROPIUM BROM 0.5MG/2.5ML ONE (17:10)
[2018-12-19] MEDS ORDERED: ALBUTEROL 2.5 MG/3 ML NEB SOL ONE (17:10)
[2018-12-19] MEDS ORDERED: NA CHLORIDE 0.9% 500 ML ONE (18:17)
[2018-12-19 21:38] VITALS: TEMP 98.6
[2018-12-19 21:45] VITALS: BP 101/46; O2SAT 95
== END 2018-12-19 20:39 | disposition home or self-care (01) ==
LOC: ER 12:59
DX: N39.0 Urinary tract infection, site not specified (principal); J44.9 Chronic obstructive pulmonary disease, unspecified; K21.9 Gastro-esophageal reflux disease without esophagitis; E55.9 Vitamin D deficiency, unspecified; E03.9 Hypothyroidism, unspecified; I10 Essential (primary) hypertension; I73.9 Peripheral vascular disease, unspecified; F41.9 Anxiety disorder, unspecified; F32.9 Major depressive disorder, single episode, unspecified; G89.29 Other chronic pain; G62.9 Polyneuropathy, unspecified; M81.0 Age-related osteoporosis without current pathological fracture; Z79.899 Other long term (current) drug therapy
CPT/HCPCS: 36415; 71045; 80048; 81003; 81015; 83605; 84145; 85025; 87077; 87086; 87088; 87186; 96360; 99285

== ENCOUNTER 2020-09-21 13:56 | Emergency (ER) | payer OTHER ==
--- OUTSIDE RECORDS SUMMARY | 2020-09-21 14:03 | XMS REPORT | Continuity of Care Document ---
:1940 Author Organization [facility] Care Team Providers Name Role Phone [facility] Unavailable Un available Problems Problem Status Onset Classification Date Comments Sourc e Date Reported Unspecified 09/24/20 [place]06[place] fracture of lower 18 [place] dical end of left femur, C enter initial encounter for closed fracture L FEMUR FX S/P Active 09/14/20 [facility] [place] FALL ONE WEEK AGO 18 Nc dical Center L FEMUR FX Active 09/14/20 [facility] 18 Medical Center DUPLEX LOWER EXT Active 11/28/19 [facility] ARTERY BYPASS 16 Medica l BILATERAL Center PERIPHERAL Active 05/30/20 [facility] ARTERIAL DISEASE 15 Med ical AND LEFT LOW Center LEFT ANKLE Active 02/07/20 [facility] FRACTURE 15 Medical Center LEFT ANKLE FX Active 12/04/19 [facility] as 15 Medical Center F/U Active 05/04/20 [facility] 14 R ABOVE KNEE Active 03/31/20 [facility] PROSTHESIS 14 FOOT PAIN Active 03/10/20 [facility] 14 Medical Center LEFT DISTAL TIBIA Active 03/10/20 [facility] NONUNION W/ 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, Center TIBIAL NON UNION Active 03/09/20 [facility] INFECTED 14 Medical Center LEFT TIBIA Active 03/09/20 [facility] BIMALLEOLAR 14 Medical FRACTURE Center PERIPHERAL Active 12/22/19 [facility] ARTERIAL DISEASE, 14 Nc dical Center PERIPHERAL Active 04/21/20 [facility] ARTERIAL DISEASE 13 Med ical Center Left foot Active Problem 08/05/2014 [facility] pain(Confirmed) [facility], [facility] 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) C enter, [facility] Bronchitis Resolved Problem 04/28/2013 [facility] Heart disease Resolved Problem 04/28/2013 [facility] Hypothyroid Resolved Problem 04/28/2013 [facility] L AKA Resolved Problem 04/28/2013 [facility] Left foot pain Resolved Problem 01/01/2014 [facility] Pancreas Resolved Problem 04/28/2013 [facility] Peripheral Active Problem 04/28/2013 [facility] pulmonary artery [facility] ical disease Center Final: 06/09/2015 [facility] Unspecified severe 04/06/2019 [facility] protein-calorie Medi wali malnutrition Center Body mass index 04/06/2019 [facility] (BMI) 19 or less, Nc dical adult Center Fall from 04/06/2019 [facility] non-moving Medical wheelchair, Center initial encounter Nicotine 04/06/2019 [facility] dependence, Medical cigarettes, Center uncomplicated Emphysema, 04/06/2019 [facility] unspecified Medical Center Peripheral 04/06/2019 [facility] vascular disease, Nc dical unspecified Center Hypothyroidism, 04/06/2019 [facility] Encounter for 04/06/2019 [facility] immunization [facility] Center Gastro-esophageal 04/06/2019 [place]yl [place] reflux disease Medic al without Center esophagitis Age-related 04/06/2019 [facility] osteoporosis Medical without current Cent er pathological fracture Dependence on 04/06/2019 [facility] wheelchair [facility] Center Pain In The Left Active 02/24/2014 [facility] Atherosclerosis Of Active 02/24/2014 [facility] Extremities [facility] With Rest Pain Aftercare Active 02/24/2014 [facility] Chronic Active 02/24/2014 [facility] Non-pressure Ulcer [facility]ys[facility] Of Lower Leg Fracture Of The Active 02/24/2014 [facility] PERIPH VASCULAR Active [facility] DIS NOS Medical Center ATH EXT NTV AT W Active [facility] RST PN Medical Center FX TIBIA Active [facility] NOS-CLOSED Medical Center FX UPPER END [facility] Center PAIN IN LIMB Active [facility] FX Active [facility] BIMALLEOLAR-CLOSED edical Center UNSP FRACTURE OF Active [facility] UNSP FEMUR, INIT Med ical ENCNTR Center Medications Medication Details Route Status Patient Ordering Order Source Instructions Provider Date Oxycodone 2.5 mg = 2.5 Active [place] Hydrochloride 1 mL, PO, Q6H, 2017 Med ical MG/ML Oral PRN Pain Score Center Solution 7-10, 0 Refill(s) bisacodyl 10 mg 10 mg = 1 Active [facility] as rectal supp, [place], 2017 Medical suppository Daily, PRN [place] Constipation, 0 Refill(s) Alprazolam 0.25 0.25 mg = 1 Active 09/17[facility] [place] MG Oral Tablet tab, PO, BID, 2017 Med ical 0 Refill(s) [place] Acetaminophen 325 100.4 F, 0 Active 09/17[facility] MG Oral Tablet Refill(s) [address] [place] [address] Ibuprofen 20 400 mg = 20 [facility] MG/ML Oral mL, PO, Q6H, 0 2018 Medica l Suspension Refill(s) [place] gabapentin 300 MG 100.4 F, 0 Inactive [facility] Oral Capsule Refill(s) [address] [place] [address] Alprazolam 0.5 MG Notes: With No Longer [facility] Oral Tablet food or milk Active 2017 Medical (Same as: Center Xanax) Cymbalta Notes: (Same No Longer [place] as: Cymbalta) Active 2017 Medical (Do Not Center Crush) Pulmicort Notes: (Same No Longer [facility] s Respules As: Pulmicort Active 2017 Medical respule). 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 (Same as:Synthroid, Levothroid) albuterol Notes: SEE RT No Longer [place] as DOCUMENTATION Active 2017 Medical (Same as: Center Proventil) sennosides, SHELTER Notes: (Same No Longer H [place] as: Senokot) Active 2018 [facility] Center Famotidine 40 MG Notes: (Same No Longer [place] Oral Tablet as: Pepcid) Active 2017 [facility] [Pepcid] Center Remeron 15 mg, Route: No Longer [place] PO, Drug form: Active 2017 Medical TAB, Bedtime, Center Dosing Weight 46.42, kg, Start date: 09/15/18 21:00:00 CDT, Duration: 30 day, Stop date: 10/14/18 21:00:00 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 metoprolol 25 mg, Route: [place] Longer [place] tartrate PO, Drug form: Active 2017 Medical TAB, Q12H, Center Dosing Weight 46.42, kg, Start date: 09/15/18 21:00:00 CDT, Duration: 30 day, Stop date: 10/15/18 9:00:00 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 Albuterol 0.83 2.5 mg = 3 mL, Active [place] MG/ML Inhalant NEB, Q6H, 2018 Medi wali Solution NEEDED FOR Center DYSPNEA/SHORTN ESS OF BREATH, 0 Refill(s) Docusate Sodium 100 mg = 1 [place] 100 MG Oral cap, PO, BID, 2018 Medica l Capsule [Colace] NEEDED FOR C enter CONSTIPATION, 0 Refill(s) Alprazolam 0.5 MG 0.5 mg = 1 No Longer H [place] Oral Tablet tab, PO, TID, Active 2017 Medica l 0 Refill(s) [place] Breo Ellipta 100 1 puff, Active [place] mcg-25 mcg INHALATION, 2018 Medical inhalation powder Daily, RINSE C enter MOUTH WITH WATER AFTER USE, 0 Refill(s) Aluminum 30 mL, PO, Active [place] Hydroxide 40 QID-After 2018 Medical MG/ML / Magnesium Meals, Cent er Hydroxide 40 NEEDED FOR MG/ML / INDIGESTION, 0 Simethicone 4 Refill(s) MG/ML Oral Suspension [Maalox Plus] sennosides, SHELTER 8.6 mg = 1 Active [place] 8.6 MG Oral tab, PO, PRN, 2018 Medica l Tablet DAILY FOR Center CONSTIPATION, 0 Refill(s) Ipratropium 500 microgram Active [place] 0.2 MG/ML = 2.5 mL, NEB, 2017 Medical Inhalant Solution Q6H, NEEDED Center FOR DYSPNEA/SHORTN ESS OF BREATH, 0 Refill(s) Famotidine 20 MG 20 mg = 1 tab, Active [place] Oral Tablet PO, Bedtime, 0 2017 Medic al Refill(s) [place] Nitroglycerin 0.4 0.4 mg = 1 Active [facility] MG Sublingual tab, SL, 2018 Medical Tablet Q5Min, A S Center NEEDED, 0 Refill(s) Lyrica Notes: (Same No Longer [place] as: Lyrica) Active [address] [place] [address] sugammadex Notes: (Same Inactive [place] as: [place]) [address] [place] [address] Ibuprofen 20 Notes: (Same No Longer [place] MG/ML Oral as: Motrin Active 2018 Medical Suspension [facility], Center Advil Children[facility]) Take with food. Enoxaparin Notes: (Same No Longer [place] as: Lovenox) Active [address] [place] [address] Oxycodone Notes: (Same No Longer [place] Hydrochloride 1 as: Active 2018 Medical MG/ML Oral 'Roxicodone) [place] Solution esmolol (ANES) Route: IV, Inactive [place] Drug form: 2018 Medical INJ, ONCE, Center Stop date: 09/15/18 10:30:00 CDT sugammadex (ANES) Route: IV, Inactive [place] Drug form: 2017 Medical SOLN, ONCE, Center Stop date: 09/15/18 10:27:00 CDT ondansetron Route: IV, Inactive [place] (ANES) Drug form: 2018 Medical INJ, ONCE, Center Stop date: 09/15/18 10:12:00 CDT propofol (ANES) Route: IV, Inactive [place] Drug form: 2017 Medical INJ, ONCE, Center Stop date: 09/15/18 9:07:00 CDT acetaminophen Route: IV, Inactive [place] as (ANES) 10 mg Drug form: 2017 Medical INJ, Start Center date: 09/15/18 9:05:00 CDT, Stop date: 09/15/18 10:05:00 CDT dexamethasone Route: IV, Inactive [place] as (ANES) Drug form: 2017 Medical INJ, ONCE, Center Stop date: 09/15/18 9:02:00 CDT POLYETHYLENE Notes: No Longer [place] GLYCOL 3350 Dissolve in 8 Active 2018 Medica l oz of water or [place] juice. (Same as: Miralax) Docusate Notes: (Same No Longer [place] as: Colace) Active 2018 Medical (Do Not Crush) [place] Calcium Carbonate Notes: No Longer [place] 1250 MG / (calcium Active 2018 Medical Cholecalciferol carbonate-vit Ce nter 400 UNT Chewable D Tablet 500mg-400unit chew TAB) Same as: Oscal 500+D Mirtazapine 15 MG 15 mg = 1 tab, No Longer 09/15 [place] Oral Tablet PO, Bedtime, # Active 2018 Medic al [Remeron] 30 tab, 0 Center Refill(s) Famotidine 40 MG 40 mg = 1 tab, Inactive [place] Oral Tablet PO, Bedtime, # 2018 Medic al [Pepcid] 30 tab, 0 Center Refill(s) Vitamin D3 2000 2,000 IntlUnit Active H [place] intl units oral = 1 tab, PO, 2018 Med ical tablet Daily, 0 Center Refill(s) potassium 10 mEq = 1 No Longer [place] chloride 10 mEq cap, PO, Active 2018 Medical oral capsule, Q-M-W-, 0 Center extended release Refill(s) Acetaminophen 325 1 tab, PO, No Longer 09/15/ H [place] MG / Hydrocodone TID, # 60 tab, Active 2018 Medical Bitartrate 10 MG 0 Refill(s) [address] [facility] Oral Tablet [[place] 10] pregabalin 100 MG 100 mg = 1 Active [place] Oral Capsule cap, PO, TID, 2018 Medic al [Lyrica] # 90 cap, 0 Center Refill(s) metoprolol 25 mg = 1 tab, No Longer [place] tartrate 25 mg PO, BID, # 60 Active 2018 Med ical oral tablet tab, 0 Center Refill(s) Tetrahydrocannabi 2.5 mg = 1 No Longer 09/15/ H [place] nol 2.5 MG Oral cap, PO, BID, Active 2018 Me dical Capsule [Marinol] 0 Refill(s) Ce nter 168 HR 1 patch, TOP, No Longer [place] Buprenorphine qWeek, # 4 Active 2018 Medical 0.005 MG/HR patch, 0 Center Transdermal Patch Refill(s) [BuTrans] rocuronium (ANES) Route: IV, Inactive [facility] Drug form: 2017 Medical INJ, ONCE, Center Stop date: 09/15/18 8:52:00 CDT fentaNYL (ANES) Route: IV, Inactive [facility] [place] Drug form: 2017 Medical INJ, ONCE, Center Stop date: 09/15/18 8:52:00 CDT Oxycodone Notes: (Same Inactive [facility] as: [address] [place] [address] Roxicodone) Center Hydromorphone Notes: Same as Inactive [facility] Dilaudid [address] [place] [address] Naloxone Notes: Same as [place] Narcan [address] [place] [address] Flumazenil Notes: (Same Inactive [place] as: Romazicon) [address] [place] [address] Ondansetron Notes: (Same Inactive [facility] as as: Zofran) [facility] Medical MEDICATION Center WASTE Product Size: 4 mg Product Wasted: ___ mg lidocaine (ANES) Route: IV, Inactive [facility] Drug form: 2017 Medical INJ, ONCE, Center Stop date: 09/15/18 8:47:00 CDT Sodium Chloride Route: IV, Inactive [place] 0.9% IV (ANES) Drug form: 2018 Medica l 100 mL + INJ, Start Center clindamycin date: 09/15/18 (ANES) 150 mg 7:55:00 CDT, Stop date: 09/15/18 8:55:00 CDT Lactated Ringers Route: IV, Inactive [place] Injection IV Total Volume: 2018 Medic al (ANES) 1000 mL 1,000, Start Cent er date: 09/15/18 7:30:00 CDT, Stop date: 09/15/18 8:30:00 CDT Albuterol / Notes: (Same No Longer [place] Ipratropium as: Duoneb) Active 2018 Medical Center gabapentin Notes: (Same No Longer [place] as: Neurontin) Active 2018 Medical Center Acetaminophen Notes: Do not No Longer [place] exceed 4 Active 2018 Medical gm/day. (Same Center as: Tylenol) Ondansetron Notes: (Same [place] Long[place] as: Zofran) Active 2018 Medical MEDICATION Center WASTE Product Size: 4 mg Product Wasted: ___ mg Tramadol Notes: Not to Inactive [place] exceed 2018 Medical 400mg/day. 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 Nicotine Notes: (Same No Longer [place] as: Habitrol) Active 2014 Medical "Remove old Center patch before application of new patch" Acetaminophen 325 Notes: Same as No Longer 06/05 [place] MG / Hydrocodone [place] Active 2014 Medical Bitartrate 7.5 MG 325-7.5mg Do Center Oral Tablet not exceed [[place] 7.5/325] 4gm/day of acetaminophen. Acetaminophen Notes: Max No Longer [place] acetaminophen Active 2014 Medical = 4000mg/day Center (4 gm/day). (Same as: Tylenol) Hydralazine Notes: (Same No Longer [place] as: Active 2014 [facility] Apresoline) Center Push over 5 minutes senna 8.6 mg oral Notes: (Same No Longer [place] tablet as: Senokot) Active 2014 Medical [place] Alprazolam Notes: With No Longer [facility] s food or milk Active 2014 Medical (Same as: Center Xanax) sulfamethoxazole- Notes: One DS No Longer [place] trimethoprim DS tablet = Active 2014 Medical 800 mg-160 mg trimethoprim Cente r oral tablet 160mg + sulfamethoxazo le 800 mg Dose based on trimethoprim component On empty stomach with a glass of water. 1 hr before meals (Same As: Bactrim DS, Septra DS) Sulfamethoxazole 1 tab, Route: Inactive [place] 800 MG / PO, Drug Form: 2014 Medical Trimethoprim 160 TAB, Dosing [facility] MG Oral Tablet Weight 53.182, [Bactrim] kg, [id number], Start date: 06/04/15 4:00:00, Duration: 5 day, Stop date: 06/08/15 16:00:00 tramadol Notes: Not to [place] Longer [place] hydrochloride 50 exceed Active 2014 Medical MG Oral Tablet 400mg/day. Center [Ultram] (Same As: Ultram) Acetaminophen 325 Notes: Do not No Longer [place] MG / Hydrocodone exceed 4gm/day Active 2014 Medical Bitartrate 10 MG of Center Oral Tablet acetaminophen. [[place] 10/325] (Same as: [place] 325/10) pneumococcal Notes: (Same Inactive [place] capsular as: Pneumovax 2014 Medical polysaccharide 23) Center type 1 vaccine / Refrigerate pneumococcal capsular polysaccharide type 10A vaccine / pneumococcal capsular polysaccharide type 11A vaccine / pneumococcal capsular polysaccharide type 12F vaccine / pneumococcal capsular polysacchar Plavix Notes: (Same No Longer [place] As: Plavix) Active 2014 Medical Center gabapentin 800 MG Notes: (Same No Longer [place] Oral Tablet as: Neurontin) Active 2014 Medic al Center Folic Acid Notes: (Same No Longer [place] as as: Folvite) Active 2014 Medical [place] Advair Diskus 250 1 puff, Route: No Longer 06/03 [place] mcg-50 mcg INHALATION, Active 2014 Medical inhalation powder Drug Form: [place] ter AERO, Dosing Weight 53.182, kg, BID, Start date: 06/03/15 9:00:00, Duration: 30 day, Stop date: 07/02/15 17:00:00 Cymbalta Notes: (Same No Longer [place] as: Cymbalta) Active 2014 Medical (Do Not Center Crush) calcium-vitamin D Notes: (Same No Longer [place] 500 mg-200 intl As: Eli-D, Active 2014 Med ical units oral tablet OsCal-D, Cente r Oyster Calcium) Vitamin C Notes: (Same [place] Longer [place] as: Vitamin C) Active 2014 Medical Center Docusate Notes: (Same No Longer [place] as: Colace) Active 2014 Medical (Do Not Crush) Center Protonix Notes: Tablet No Longer [place] should not be Active 2014 Medical chewed or Center crushed. (Same as: Protonix) multivitamin Notes: (Same No Longer [place] as:Thera) Active 2014 Medical Take with [place] food. Omeprazole 20 mg, Route: No Longer [place] PO, Drug form: Active 2014 Medical ECTAB, BID, Center Dosing Weight 53.182, kg, Start date: 06/03/15 9:00:00, Duration: 30 day, Stop date: 07/02/15 17:00:00 tiotropium 0.018 Notes: (Same No Longer [place] MG/ACTUAT As: Spiriva) Active 2014 [facility] Inhalant Powder [place] [Spiriva] sodium phosphate 30 mmol, 10 No Longer [place] + Sodium Chloride mL, Route: Active 2014 Med ical 0.9% IV 250 mL IVPB, PRN, Center Dosing Weight 53.182, kg, PRN Abnormal Lab Result, For NON-ICU Patients Only., Start date: 06/03/15 6:39:00, Duration: 30 day, Stop date: 07/03/15 6:38:00 Magnesium Oxide Notes: (Same No Longer [place] as: Mag-Ox Active 2014 [facility] 400) Magnesium Center oxide [id number] elemental magnesium Dose=____mg magnesium oxide (___mg elemental magnesium) Calcium Gluconate 2 gm, 20 mL, No Longer [place] Route: IVPB, Active 2014 Medical PRN, Dosing Center Weight 53.182, kg, PRN Abnormal Lab Result, For NON-ICU Patients Only., Start date: 06/03/15 6:39:00, Duration: 30 day, Stop date: 07/03/15 6:38:00 potassium Notes: (Same No Longer s chloride as: KCL) Active 2014 Medical Infuse over 2 Center hours. potassium Notes: (Same No Longer phosphate + as: K Active 2014 Medical Sodium Chloride Phosphate.) 1 C enter 0.9% IV 250 mL mMol phoshate has 1.47 mEq potassium Infuse over 4 hours potassium Notes: (Same No Longer 07/18/ [place] phosphate-sodium as: Active 2014 Medical phosphate 250 Neutra-Phos) Cente r mg-278 mg-164 mg Each 1.25 gm oral powder pkt has 250mg phosphorous. Mix w/2.5oz water and stir. Magnesium Sulfate 1 gm, 100 mL, No Longer [place] Route: IVPB, Active 2014 Medical Drug form: Center INJ, PRN, Dosing Weight 53.182, kg, PRN Abnormal Lab Result, For NON-ICU Patients Only., Start date: 06/03/15 6:39:00, Duration: 30 day, Stop date: 07/03/15 6:38:00 Synthroid Notes: Take 1 No Longer [place] hour before or Active 2014 Medical 2 hours after Center meal; Enteral feeds may interefere with the absorption of this medication. (Same as:Synthroid, Levothroid) Septra I.V. + Notes: D5W [place] Longer [place] Dextrose 5% in only: Stable Active 2014 Med ical Water IV 500 mL for __ hour Cent er after mixing. 6h (<=0.64mg/mL), 4h(0.65 - 0.8mg/mL), 2h (0.81- 1mg/mL). TMP/SMZ 16mg/80mg per mL Dose based on trimethoprim component (Same As: BACTRIM, SEPTRA) "Protect from light"-----DO NOT REFRIGERATE budesonide-formot Notes: (Same No Longer [place] sami 160 mcg-4.5 as: Symbicort) Active 2014 Medical mcg/inh Center inhalation aerosol with adapter Docusate Sodium Notes: (Same No Longer [place] 100 MG Oral as: Colace) Active 2014 Medical Capsule [Colace] (Do Not Crush) Center Sulfamethoxazole Notes: D5W Inactive [place] 80 MG/ML / only: Stable 2014 Medical Trimethoprim 16 for __ hour Cent er MG/ML Injectable after mixing. Solution 6h (<=0.64mg/mL), 4h(0.65 - 0.8mg/mL), 2h (0.81- 1mg/mL). TMP/SMZ 16mg/80mg per mL Dose based on trimethoprim component (Same As: BACTRIM, SEPTRA) "Protect from light"-----DO NOT REFRIGERATE Enoxaparin Notes: (Same No Longer [place] as as: Lovenox) Active 2014 Medical Center Dilaudid Notes: Same No Longer [place] as: Dilaudid Active 2014 Medical Center PlasmaLyte A 1,000 mL, No Longer [place] PH-7.4 1,000 mL Rate: 75 Active 2014 Medical ml/hr, Infuse Center over: 13.3 hr, Route: IV, Dosing Weight 53.182 kg, Total Volume: 1,000, Start date: 06/02/15 17:36:00, Duration: 30 day, Stop date: 07/02/15 17:35:00 Ondansetron Notes: (Same No Longer [place] as: Zofran) Active 2014 Medical MEDICATION Center WASTE Product Size: 4 mg Product Wasted: _0__ mg Vancomycin 1 gm, Route: Inactive [place]ila rowe IVPB, Drug 2014 Medical form: INJ, Center ONCE, Dosing Weight 53.182, kg, Start date: 06/02/15 14:02:00, Stop date: 06/02/15 14:02:00 Ondansetron Notes: (Same No Longer [place] as: Zofran) Active 2014 Medical MEDICATION Center WASTE Product Size: 4 mg Product Wasted: ___ mg Fentanyl Notes: (Same Inactive [place] as: Sublimaze) 2015 Medical Preservative Center free. Labetalol 10 mg, 2 mL, No Longer [place] Route: IVP, Active 2014 Medical Drug form: Center INJ, Q5Min, Dosing Weight 54.545, kg, PRN Elevated BP, Start date: 06/02/15 13:11:00, Duration: 5 doses or times, Stop date: Limited # of times Flumazenil Notes: (Same No Longer [place] as as: Romazicon) Active 2014 Medical Center Naloxone Notes: Same as No Longer [place] as Narcan Active 2014 Medical Center Ativan 1 mg, Route: Inactive [place] IVP, Drug 2013 Medical form: INJ, Center ONCE, Dosing Weight 45.455, kg, PRN Anxiety, Start date: 07/15/14 9:42:00 gabapentin 600 mg, Route: Inactive [place] PO, Drug form: 2013 Medical TAB, ONCE, Center Dosing Weight 45.455, kg, Start date: 07/15/14 9:38:00, Stop date: 07/15/14 9:38:00 Hydromorphone Notes: Same No Longer [place] as: Dilaudid Active [address] [place] [address] Center Hydrocodone Notes: (Same No Longer [place] Bitartrate 7.5 MG as: Active 2013 Medica l / Ibuprofen 200 Vicoprofen) Cent er MG Oral Tablet [Vicoprofen] Ondansetron Notes: (Same No Longer [place] as: Zofran) Active 2013 [facility] Flumazenil Notes: (Same No Longer [place] as as: Romazicon) Active 2013 [facility] Naloxone Notes: (Same No Longer [facility] as: Narcan) Active 2013 [facility] Vancomycin 2001 mg: Inactive [place] infuse over 2014 Medical 2.5 hours Center tramadol 50 mg 50 mg = 1 tab, Active Ann Lorri oral tablet PO, Q6H, as 2014 Medical needed for Center pain, # 30 tab, 0 Refill(s) docusate sodium 100 mg = 1 Active [place] mg oral cap, PO, BID, 2013 Medica l capsule # 60 cap, 0 Center Refill(s) fentanyl 50 microgram, No Longer [place] 1 mL, Route: Active 2013 [facility] IVP, Drug Center form: INJ, Q4H, Dosing Weight 50, kg, PRN as needed for pain, first dose now, Priority: STAT, Start date: 12/29/13 17:44:00, Duration: 30 day, Stop date: 01/28/14 17:43:00, Pediatric Dosing; For procedure; > 50 kg 50 kg(Same as: Sublimaze) Preservative free. Dulcolax Laxative 10 mg, 2 tab, No Longer Chaim Lorri Route: PO, Active 2013 Medical Drug form: Center ECTAB, Daily, Dosing Weight 50, kg, Start date: 12/29/13 9:00:00, Duration: 30 day, Stop date: 01/27/14 9:00:00(Same As: Dulcolax, Correctol) (Do Not Crush) "Do Not Crush" fentanyl 25 microgram, Inactive [facility] 12/29[facility] [place] 0.5 mL, Route: 2013 Medical IV, Drug form: [place] INJ, ONCE, Dosing Weight 50, kg, Start date: 12/29/13 3:34:00, Stop date: 12/29/13 3:34:00(Same as: Sublimaze) Preservative free. fentanyl 25 microgram, Inactive [facility] 12/29[facility] [place] 0.5 mL, Route: 2013 Medical IV, Drug form: [place] INJ, ONCE, Dosing Weight 50, kg, Start date: 12/28/13 22:40:00, Stop date: 12/28/13 22:40:00(Same as: Sublimaze) Preservative free. fentanyl 25 microgram, Inactive [facility] 12/29[facility] [place] 0.5 mL, Route: 2013 Medical IV, Drug form: [place] INJ, ONCE, Dosing Weight 50, kg, Start date: 12/28/13 22:38:00, Stop date: 12/28/13 22:38:00(Same as: Sublimaze) Preservative free. Lovenox 40 mg, 0.4 mL, [place] Longer [place] Route: SUB-Q, Active 2013 Medical Drug form: [place] INJ, [id number], Dosing Weight 50, kg, Start date: 12/28/13 18:00:00, Duration: 30 day, Stop date: 01/26/14 18:00:00(Same as: Lovenox) Vitamin C 500 mg, 1 tab, [place] Longer [place] Route: PO, Active 2013 Medical Drug form: [place] TAB, Daily, Start date: 12/28/13 9:00:00, Duration: 30 day, Stop date: 01/26/14 9:00:00(Same as: Vitamin C) pentoxifylline 400 mg, 1 tab, No Longer Libby [place] Route: PO, Active 2013 Medical Drug form: [place] ERTAB, Daily, Dosing Weight 50, kg, Start date: 12/28/13 9:00:00, Duration: 30 day, Stop date: 01/26/14 9:00:00Non-For mulary Drug. Do not crush or chew. (Same as: Trental) zinc sulfate 220 mg, 1 cap, No Longer Libby [place] Route: PO, Active 2013 Medical Drug form: [place] CAP, Daily, Dosing Weight 50, kg, Start date: 12/28/13 9:00:00, Duration: 30 day, Stop date: 01/26/14 9:00:00(Zinc sulfate capsule) - 220 mg Zinc sulfate = 50 mg elemental zinc Same as Zinc Sulfate potassium 10 mEq, 1 tab, No Longer [place] chloride Route: PO, Active 2013 Medical Drug form: [place] ERTAB, Daily, Dosing Weight 50, kg, Start date: 12/28/13 9:00:00, Duration: 30 day, Stop date: 01/26/14 9:00:00(Same as: Marta-Con 10) "Do Not Crush" With food and full glass of water multivitamin 1 tab, Route: No Longer Libby [place] PO, Drug Form: Active 2013 Medical TAB, Dosing Center Weight 50, kg, Daily, Start date: 12/28/13 9:00:00, Duration: 30 day, Stop date: 01/26/14 9:00:00(Same as:Thera) Take with food. folic acid 1 mg, 1 tab, No Longer Libby [place] Route: PO, Active 2013 Medical Drug form: [place] TAB, Daily, Dosing Weight 50, kg, Start date: 12/28/13 9:00:00, Duration: 30 day, Stop date: 01/26/14 9:00:00(Same as: Folvite) Pepcid 20 mg oral 20 mg, 1 tab, No Longer Libby [place] tablet Route: PO, Active 2013 Medical Drug form: [place] TAB, Daily, Dosing Weight 50, kg, Start date: 12/28/13 9:00:00, Duration: 30 day, Stop date: 01/26/14 9:00:00(Same as: Pepcid) calcium-vitamin D 1 tab, Route: No Longer Libby [place] 500 mg-400 intl PO, Drug Form: Active 2013 M edical units oral CHEWTAB, Center tablet, chewable Dosing Weight 50, kg, Daily, Start date: 12/28/13 9:00:00, Duration: 30 day, Stop date: 01/26/14 9:00:00(calciu m carbonate-vit D 500mg-400unit chew TAB) Same as: Oscal 500+D clopidogrel 75 mg, 1 tab, No Longer [place] Route: PO, Active 2013 Medical Drug form: Center TAB, Daily, Dosing Weight 50, kg, Start date: 12/28/13 9:00:00, Duration: 30 day, Stop date: 01/26/14 9:00:00(Same As: Plavix) Vitamin C 50 mg, Route: No Longer Libby [place] CHEW, Daily, Active 2013 Medical Dosing Weight Center 50, kg, Start date: 12/28/13 9:00:00, Duration: 30 day, Stop date: 01/26/14 9:00:00 Fosamax 10 mg, 1 tab, No Longer Libby Lorri Route: PO, Active 2013 Medical Drug form: Center TAB, Q630AM, Start date: 12/28/13 6:30:00, Duration: 30 day, Stop date: 01/26/14 6:30:00Give 30 min before breakfast w/6oz water. Sit upright for 30 min after dose. "Do Not Crush" (Same as: Fosamax) levothyroxine 75 microgram, No Longer Libby Lorri 1 tab, Route: Active 2013 Medical PO, Drug form: Center TAB, Q630AM, Dosing Weight 50, kg, Start date: 12/28/13 6:30:00, Duration: 30 day, Stop date: 01/26/14 6:30:00Take 1 hour before or 2 hours after meal; Enteral feeds may interefere with the absorption of this medication. (Same as:Synthroid, Levothroid) [place] 10/325 oral 1 tab, Route: Inactive Ribeiro Lorri tablet PO, Drug Form: 2013 Medical TAB, Dosing Center Weight 50, kg, ONCE, Start date: 12/27/13 21:45:00, Stop date: 12/27/13 21:45:00Do not exceed 4gm/day of acetaminophen. (Same as: [place] 325) trazodone 50 mg 50 mg, 1 tab, No Longer Libby [place] oral tablet Route: PO, Active 2013 Medical Drug form: [place] TAB, Bedtime, Dosing Weight 50, kg, Start date: 12/27/13 21:00:00, Duration: 30 day, Stop date: 01/25/14 21:00:00(Same As: Desyrel) Lyrica 50 mg, 1 cap, No Longer Libby [place] Route: PO, Active 2013 Medical Drug form: [place] CAP, Bedtime, Dosing Weight 50, kg, Start date: 12/27/13 21:00:00, Duration: 30 day, Stop date: 01/25/14 21:00:00Same as Lyrica Cymbalta 60 mg, 1 cap, [place] Longer [place] Route: PO, Active 2013 Medical Drug form: [place] DRC, Q12H, Dosing Weight 50, kg, Start date: 12/27/13 21:00:00, Duration: 30 day, Stop date: 01/26/14 9:00:00Non Formulary Drug (Same as: Cymbalta) (Do Not Crush) tramadol 50 mg 50 mg, 1 tab, No Longer Chaim [facility] oral tablet Route: PO, Active 2013 Medical Drug form: [place] TAB, Q6H, Dosing Weight 50, kg, PRN as needed for pain, Start date: 12/27/13 18:58:00, Duration: 30 day, Stop date: 01/26/14 18:57:00Not to exceed 400mg/day. (Same As: Ultram) docusate 100 mg, 1 cap, No Longer Libby [place] Route: PO, Active 2013 Medical Drug form: [place] CAP, BID, Dosing Weight 50, kg, Start date: 12/27/13 17:00:00, Duration: 30 day, Stop date: 01/26/14 9:00:00(Same as: Colace) (Do Not Crush) Creon 24,000 1 cap, Route: No Longer Libby [place] units oral PO, Drug Form: Active 2013 Medica l delayed release DRC, Dosing Cent er capsule Weight 50, kg, TID, Start date: 12/27/13 13:00:00, Duration: 30 day, Stop date: 01/26/14 9:00:00Same as: Creon DRC 24 : Amylase 120,000 units - Lipase 24,000 units - Protease 76,000 units Skelaxin 400 mg, 0.5 No Longer Libby [place] tab, Route: Active 2013 Medical PO, Drug form: [place] TAB, QID, Dosing Weight 50, kg, Start date: 12/27/13 13:00:00, Duration: 30 day, Stop date: 01/26/14 9:00:00(Same as: Skelaxin) Neurontin 800 mg 800 mg, 2 cap, No Longer Libby [place] oral tablet Route: PO, Active 2013 Medical Drug form: [place] CAP, TID, Dosing Weight 50, kg, Start date: 12/27/13 13:00:00, Duration: 30 day, Stop date: 01/26/14 9:00:00(Same as: Neurontin) Xanax 1 mg oral 1 mg, 1 tab, No Longer Libby 12/27/ H [place] tablet Route: PO, Active 2013 Medical Drug form: [place] TAB, TID, Dosing Weight 50, kg, PRN Anxiety, Start date: 12/27/13 12:50:00, Duration: 30 day, Stop date: 01/26/14 12:49:00With food or milk (Same as: Xanax) nitroglycerin 0.4 mg, 1 tab, No Longer Libby 12/27/ M H [place] Route: SL, Active 2013 Medical Drug form: [place] TAB, Q5Min, Dosing Weight 50, kg, PRN Chest Pain, Start date: 12/27/13 12:05:00, Duration: 3 doses or times, Stop date: 01/26/14 0:00:00(Same as:Nitroquick, Nitrostat) "Do Not Crush" Sublingual tablet hydrALAZINE 10 mg, 0.5 mL, Inactive Valentin [place] Route: IVP, 2013 Medical Drug form: Center INJ, Q20Min, Dosing Weight 50, kg, PRN Elevated BP, Start date: 12/27/13 12:05:00, Duration: 2 doses or times, Stop date: 12/27/13 23:59:00(Same as: Apresoline) Push over 5 minutes enalaprilat 0.625 mg, 0.5 Inactive [place] mL, Route: 2013 Medical IVP, Drug Center form: INJ, Q5Min, Dosing Weight 50, kg, PRN Elevated BP, Start date: 12/27/13 12:05:00, Duration: 4 doses or times, Stop date: 12/27/13 23:59:00(Same as: Vasotec-IV) metoprolol 1 mg, 1 mL, Inactive Barbie Lorri Route: IVP, 2013 Medical Drug form: Center INJ, Q5Min, Dosing Weight 50, kg, PRN Other -See Comment, Start date: 12/27/13 12:05:00, Duration: 5 doses or times, Stop date: 12/27/13 23:59:00(Same as: Lopressor) Push over 2 minutes fentanyl 50 microgram, Inactive Barbie Lorri 1 mL, Route: 2013 Medical IVP, Drug Center form: INJ, Q5Min, Dosing Weight 50, kg, PRN Pain Score 7-10, Start date: 12/27/13 12:05:00, Duration: 2 doses or times, Stop date: Limited # of times(Same as: Sublimaze) Preservative free. naloxone 0.04 mg, 0.1 Inactive Barbie Lorri mL, Route: 2013 Medical IVP, Drug Center form: INJ, Q2MIN, Dosing Weight 50, kg, PRN Narcotic Reversal, Start date: 12/27/13 12:05:00, Duration: 8 doses or times, Stop date: 12/27/13 23:59:00(Same as: Narcan) hydromorphone 0.5 mg, 0.25 Inactive Barbie [place] mL, Route: 2013 Medical IVP, Drug Center form: INJ, Q5Min, Dosing Weight 50, kg, PRN Pain Score 7-10, Start date: 12/27/13 12:05:00, Duration: 4 doses or times, Stop date: 12/27/13 23:59:00Same as: Dilaudid flumazenil 0.2 mg, 2 mL, Inactive Valentin [place] Route: IVP2013 Medical Drug form: [place] INJ, PRN, Dosing Weight 50, kg, PRN Benzodiazepine Reversal, Initial dose, Start date: 12/27/13 12:05:00, Stop date: 12/27/13 23:59:00(Same as: Romazicon) ondansetron 4 mg, 2 mL, Inactive [place] Route: IVP2013 Medical Drug form: [place] INJ, ONCE, Dosing Weight 50, kg, PRN Nausea & Vomiting, Start date: 12/27/13 12:05:00(Same as: Zofran) Melatonin 3 mg 3 mg, 1 tab, No Longer Libby [place] oral tablet Route: PO, Active 2013 Medical Drug Form: [place] TAB, Dosing Weight 50, kg, Bedtime, PRN Insomnia, Start date: 12/27/13 12:01:00, Duration: 30 day, Stop date: 01/26/14 12:00:00(Same as: Melatonin) Non-Formulary Drug Fosamax 70 mg, Route: Inactive Libby [facility] PO, Drug form: 2013 Medical TAB, Q7D, Center Dosing Weight 50, kg, Start date: 12/27/13 12:00:00, Duration: 30 day, Stop date: 01/24/14 9:00:00 ondansetron 4 mg, 2 mL, No Longer Libby [facility] as Route: IVP, Active 2013 Medical Drug form: [place] INJ, ONCE, Dosing Weight 50, kg, PRN Nausea & Vomiting, Start date: 12/27/13 11:59:00(Same as: Zofran) acetaminophen 650 mg, 2 tab, No Longer Libby [facility] Route: PO, Active 2013 Medical Drug form: [place] TAB, Q4H, Dosing Weight 50, kg, PRN Pain 1-3/Temp > 100.4 F, Start date: 12/27/13 11:59:00, Duration: 30 day, Stop date: 01/26/14 11:58:00Do not exceed 4 gm/day. (Same as: Tylenol) ceFAZolin 2 gm, Route: Inactive Loubser [facility] IVPB, ONCE, 2013 Medical Dosing Weight Center 50, kg, Start date: 12/27/13 10:28:00, Duration: 1 doses or times, Stop date: 12/27/13 10:28:00 potassium 10 mEq, Daily, Active [facility] [place] chloride 0 Refill(s) 2013 [facility] zinc sulfate 220 220 mg = 1 Active [facility] [place] mg oral tablet tab, PO, 2013 Medical Daily, # 100 Center tab, 0 Refill(s) Vitamin C 0 Refill(s) Active [facility] [address] Cymbalta 60 mg 60 mg = 1 cap, Active [facility] oral delayed PO, BID, # 30 2013 Medic al release capsule cap, 0 Center Refill(s) Creon 24,000 0 Refill(s) Active [facility] [place] units oral 2013 Medical delayed release [place] capsule calcium-vitamin D 1 tab, PO, Active [facility] 600 mg-400 intl Daily, # 60 2014 Medi [place]ali units oral tablet tab, 0 Center Refill(s) Lyrica 50 mg oral 50 mg = 1 cap, Active [facility] capsule PO, Bedtime, 0 2013 Medical Refill(s) [place] Fosamax 70 mg 70 mg = 1 tab, Active [facility] oral tablet PO, Q7D, # 12 2014 Medica l tab, 0 Center Refill(s) Xanax 1 mg oral 1 mg = 1 tab, Active Libby [facility] tablet PO, TID, 0 2013 Medical Refill(s) [place] melatonin 3 mg 3 mg = 1 tab, Active [facility] oral tablet PO, Bedtime, 2014 Medical for insomnia, Center # 60 tab, 0 Refill(s) trazodone 50 mg 50 mg = 1 tab, Active Libby 12/27/ H [place] oral tablet PO, QPM, # 90 2014 Medica l tab, 0 Center Refill(s) clopidogrel 75 mg 75 mg = 1 tab, Active Libby [place] oral tablet PO, Daily, # 2014 Medical 90 tab, 0 Center Refill(s) Plavix 75 mg, 1 tab, PO No Longer Vann [facility] Route: PO, Active 2012 Medical Drug form: Center TAB, Daily, Dosing Weight 54.545, kg, Start date: 04/27/13 9:00:00, Duration: 30 day, Stop date: 05/26/13 9:00:00 [place] 10/325 oral 1 tab, Route: PO No Longer Loubser [facility] tablet PO, Drug Form: Active 2012 Medical ELIX, Dosing Center Weight 54.545, kg, ONCE, PRN Pain, Start date: 04/26/13 14:48:00 Plavix 75 mg oral 75 mg, 1 tab, PO Active [facility] tablet PO, Daily, 2012 Medical tab, Center Substitution Allowed, TAB [place] 10/325 oral 1 tab, PO, PO Active [facility] tablet BID, PRN, 30 2012 Medical tab, as needed Center for pain, Substitution Allowed, Maintenance, TAB [place] 10/325 oral 1 tab, Route: PO No Longer Vann [facility] tablet PO, Drug Form: Active 2012 Medical TAB, Dosing Center Weight 54.545, kg, Q4H, PRN Pain, Start date: 04/26/13 11:52:00, Duration: 30 day, Stop date: 05/26/13 11:51:00 nitroglycerin 0.4 mg, SL, SL On Hold [place] as Q5Min, 2012 Medical Substitution Center Allowed, TAB Tylenol 500 mg, PO, PO On Hold [place] Q4H, PRN, as 2013 Medical needed for Center pain, Substitution Allowed, TAB Melatonin 3 mg 3 mg, 1 tab, PO [place] oral tablet PO, Bedtime, 2012 Medical PRN, 60 tab, Center for insomnia, Substitution Allowed, Maintenance, TAB [place] 10/325 oral 1 tab, PO, PO No Longer Vann H [place] tablet BID, PRN, as Active 2012 Medical needed for Center pain, Substitution Allowed, Maintenance, TAB Trental 400 mg 400 mg, 1 tab, PO On Hold [place] oral tablet, PO, Daily, 2012 Medical extended release Substitution Ce nter Allowed, TAB Pepcid 20 mg oral 20 mg, 1 tab, PO On Hold [place] tablet PO, Daily, 2012 Medical Substitution Center Allowed, TAB Skelaxin 800 mg 400 mg, 0.5 [place] oral tablet tab, PO, QID, 2012 Medica l Substitution Center Allowed, TAB multivitamin 1 tab, PO, PO On Hold [place] Daily, 2012 Medical Substitution Center Allowed, Maintenance, TAB Neurontin 800 mg 800 mg, 1 tab, PO On Hold [place] oral tablet PO, TID, 90 2012 Medical tab, Center Substitution Allowed Plavix 75 mg oral 75 mg, 1 tab, PO No Longer Vann [place] tablet PO, Daily, 30 Active 2012 Medical tab, Center Substitution Allowed, TAB levothyroxine 75 75 microgram, PO On Hold H [place] mcg (0.075 mg) 1 tab, PO, 2012 Medica l oral tablet Daily, 30 tab, Cente r Substitution Allowed, TAB folic acid 1 mg 1 mg, 1 tab, PO On Hold [place] oral tablet PO, Daily, 30 2012 Medica l tab, Center Substitution Allowed, TAB Creon 36349 UNIT (Active) Active [place] Oral Capsule [facility] Delayed Release Particles Folic Acid 1 MG (Active) Active [place] Oral Tablet [facility] Synthroid 75 MCG (Active) Active [place] [facility] Plavix 75 MG Oral (Active) Active [place] [facility]t [facility] Neurontin 400 MG (Active) Active [place] [facility] Multivitamins (Active) Active [place] TABS [facility] Skelaxin 400 MG (Active) Active [place] TABS [facility] Pepcid 20 MG Oral (Active) Active [place] Tablet [facility] TRENtal 400 MG (Active) Active [place] TBCR [facility] [place] 10-325 MG (Active) Active [place] [facility]t [facility] Melatonin 3 MG (Active) Active [place] [facility] Caps[facility] Allergies, Adverse Reactions, Alerts Substance Category Reaction Severity Reaction Status Date Comments S ource type Reported aspirin Assertion Drug Active [facility] allergy Medical Center penicillins Assertion Drug Active [facility] allergy [facility] No Known drug drug Active [place] Drug allergy allergy Physicia ns Allergies Immunizations Immunization Date Given Site Status Last Comments Source Updated influenza virus 09/17/2018 Right completed Jeffrey [facility] vaccine, Deltoid Medical inactivated Center pneumococcal 09/17/2018 Left completed Jeffrey [place] as 13-valent vaccine Deltoid [facility] dical Center pneumococcal 06/03/2015 Left completed Omero [place] as 23-valent vaccine deltoid N[place] dical Center Results Order Name Results Value Reference Date Interpretation Comments [place] [facility] CHEM PANEL A/G Ratio 0.6 0.7 - 1.6 09/16 [facility] CHEM PANEL B/C Ratio 32 6 - 25 09/16 [facility] CHEM PANEL AGAP 13.2 10.0 - 09/16 [facility] 20.0 [facility] CHEM PANEL Globulin 3.7 2.7 - 4.2 09/16 [facility] CHEM PANEL eGFR 68 09/16 Result Comment: The Medical eGFR is Center calculated using the CKD-EPI formula. In most young, healthy individuals the eGFR will be >90 mL/min/1.73m2 . The eGFR declines with age. An eGFR of 60-89 may be normal in some populations, particularly the elderly, for whom the CKD-EPI formula has not been extensively validated. Use of the eGFR is not recommended in the following populations:< br/>
Kathy viduals with unstable creatinine concentration s, including patients and those with serious co-morbid conditions.<b r/>
Patie nts with extremes in muscle mass or diet.

The data above are obtained from the National Kidney Disease Education Program (NKDEP) which additionally recommends that when the eGFR is used in patients with extremes of body mass index for purposes of drug dosing, the eGFR should be multiplied by the estimated BMI. CHEM PANEL Bili Total 0.5 0.2 - 1.3 09/16 [facility] CHEM PANEL Chloride Lvl 105 95 - 109 09/16 [place] [facility] CHEM PANEL Creatinine 0.82 0.50 - 09/16 [facility] Lvl 1.40 [facility] CHEM PANEL Sodium Lvl 137 135 - 145 09/16 [facility] CHEM PANEL Potassium Lvl 5.2 3.5 - 5.1 09/16 [place] [facility] CHEM PANEL CO2 24 24 - 32 09/16 [facility] CHEM PANEL Glucose Lvl 101 70 - 99 09/16 [facility] CHEM PANEL BUN 26 7 - 22 09/16 [facility] CHEM PANEL Total Protein 6.1 6.4 - 8.4 09/16 [facility] CHEM PANEL Albumin Lvl 2.4 3.5 - 5.0 09/16 [facility] CHEM PANEL ALT 18 0 - 65 09/16 [facility] CHEM PANEL AST 14 0 - 37 09/16 [facility] CHEM PANEL Alk Phos 104 39 - 136 09/16 [facility] CHEM PANEL Calcium Lvl 8.7 8.5 - 10.5 09/16 [facility] HEMATOLOGY Neutrophils # 6.8 1.5 - 8.1 09/16 [facility] HEMATOLOGY Monocytes # 0.8 0.0 - 0.8 09/16 [facility] HEMATOLOGY Lymphocytes # 1.6 1.0 - 5.5 09/16 [facility] HEMATOLOGY Basophils 0.4 0.0 - 1.0 09/16 2017 [facility] HEMATOLOGY Lymphocytes 17.1 20.0 - 09/16 40.0 [facility] HEMATOLOGY Segs 73.0 45.0 - 09/16 75.0 [facility] HEMATOLOGY Eosinophils 0.5 0.0 - 4.0 09/16 [facility] HEMATOLOGY Monocytes 9.0 2.0 - 12.0 09/[address] HEMATOLOGY Hct 27.1 36.0 - 09/16 [place] 48.0 [facility] HEMATOLOGY Hgb 8.9 12.0 - 09/16 [place] 16.0 [facility] HEMATOLOGY RBC 3.25 4.20 - 09/16 [place] 5.40 [facility] HEMATOLOGY WBC 9.3 3.7 - 10.4 09/16 [facility] HEMATOLOGY MPV 8.6 7.4 - 10.4 09/16 2017 [facility] HEMATOLOGY Platelet 272 133 - 450 09/16 [facility] HEMATOLOGY RDW 17.1 11.5 - 09/16 [place] 14.5 /2017 [facility] HEMATOLOGY MCHC 32.9 32.0 - 09/16 [place] 36.0 /2018 [facility] HEMATOLOGY MCH 27.4 27.0 - 10/31 [facility] 31.0 [facility] HEMATOLOGY MCV 83.4 80.0 - 09/16 [facility] 98.0 [facility] CHEM PANEL Vitamin D, 31.6 30.0 - 09/15 [facility] 25-OH, Total 100.0 [facility] PARATHYROID PTH Intact 138.7 18.4 - 09/15 [facility] PROFILE 80.1 [facility] BLOOD BANK Antibody Scrn Negative 09/15 [facility] as RESULTS (09/14/18 9:23 PM) [facility] BLOOD BANK ABO/Rh A POS 09/15 [facility] RESULTS [facility] ELECTROLYTE AGAP 11.1 10.0 - 09/15 [facility] S 20. [facility] ELECTROLYTE eGFR 69 09/15 Result [facility] Comment: The Medical eGFR is Center calculated using the CKD-EPI formula. In most young, healthy individuals the eGFR will be >90 mL/min/1.73m2 . The eGFR declines with age. An eGFR of 60-89 may be normal in some populations, particularly the elderly, for whom the CKD-EPI formula has not been extensively validated. Use of the eGFR is not recommended in the following populations:< br/>
Kathy viduals with unstable creatinine concentration s, including patients and those with serious co-morbid conditions.<b r/>
Patie nts with extremes in muscle mass or diet.

The data above are obtained from the National Kidney Disease Education Program (NKDEP) which additionally recommends that when the eGFR is used in patients with extremes of body mass index for purposes of drug dosing, the eGFR should be multiplied by the estimated BMI. ELECTROLYTE CO2 27 24 - 32 09/15 [facility] S [facility] ELECTROLYTE Chloride Lvl 103 95 - 109 09/15 [place] S [facility] ELECTROLYTE Calcium Lvl 10.1 8.5 - 10.5 09/15 [place] [facility] ELECTROLYTE Potassium Lvl 5.1 3.5 - 5.1 09/15 [place] [facility] ELECTROLYTE Sodium Lvl 136 135 - 145 09/15 [place] [facility] ELECTROLYTE Glucose Lvl 111 70 - 99 09/15 S /2017 [facility] ELECTROLYTE BUN 20 7 - 22 09/15 [facility] ELECTROLYTE Creatinine 0.82 0.50 - 09/15 [facility] S Lvl 1.40 [facility] HEMATOLOGY Eosinophils # 0.3 0.0 - 0.5 09/15 [facility] HEMATOLOGY Lymphocytes 26.0 20.0 - 09/15 [place] 40.0 [facility] HEMATOLOGY Segs 60.4 45.0 - 09/15 [place] 75.0 [facility] HEMATOLOGY Basophils 0.4 0.0 - 1.0 09/15 [facility] HEMATOLOGY Lymphocytes # 2.7 1.0 - 5.5 09/15 [facility] HEMATOLOGY Monocytes # 1.1 0.0 - 0.8 09/15 [facility] HEMATOLOGY Eosinophils 3.1 0.0 - 4.0 09/15 [facility] HEMATOLOGY Neutrophils # 6.4 1.5 - 8.1 09/15 [facility] HEMATOLOGY Monocytes 10.1 2.0 - 12.0 09/15 [facility] HEMATOLOGY Platelet 354 133 - 450 09/15 [facility] HEMATOLOGY MPV 8.4 7.4 - 10.4 09/15 [facility] HEMATOLOGY Hgb 9.7 12.0 - 09/15 16.0 [facility] HEMATOLOGY MCV 82.2 80.0 - 09/15 98.0 [facility] HEMATOLOGY MCH 26.9 27.0 - 09/15 31.0 [facility] HEMATOLOGY Hct 29.7 36.0 - 09/15 48.0 [facility] HEMATOLOGY MCHC 32.7 32.0 - 09/15 [place] 36.0 [facility] HEMATOLOGY RDW 17.4 11.5 - 09/15 [place] 14.5 [facility] HEMATOLOGY WBC 10.5 3.7 - 10.4 09/15 [facility] HEMATOLOGY RBC 3.62 4.20 - 09/15 [place] 5.40 [facility] URINE CHEM U Sodium 142 06/06 [facility] URINE CHEM U Osmolality 507 300 - 800 06/06 [facility] [facility] CARDIAC CK MB Index 2.1 0.0 - 2.5 06/06 [facility] CARDIAC CK MB 4.3 0.5 - 3.6 06/06 [facility] /2014 [facility] CARDIAC Total CK 206 12 - 191 06/06 [facility] CARDIAC Troponin-I <0.02 0.00 - 06/06 [facility] ENZYMES 0.40 /2014 [facility] CARDIAC Troponin-T <0.010 0.000 - 06/06 [facility] ENZYMES 0.100 /2014 [facility] CHEM PANEL Phosphorus 2.3 2.5 - 4.5 06/06 [facility] CHEM PANEL Magnesium Lvl 2.1 1.8 - 2.4 06/06 [place] [facility] CHEM PANEL eGFR 89 06/06 [facility] Comment: [facility] eGFR is Center calculated using the CKD-EPI formula. In most young, healthy individuals the eGFR will be >90 mL/min/1.73m2 . The eGFR declines with age. An eGFR of 60-89 may be normal in some populations, particularly the elderly, for whom the CKD-EPI formula has not been extensively validated. Use of the eGFR is not recommended in the following populations:< br/>
Kathy viduals with unstable creatinine concentration s, including patients and those with serious co-morbid conditions.<b r/>
Patie nts with extremes in muscle mass or diet.

The data above are obtained from the National Kidney Disease Education Program (NKDEP) which additionally recommends that when the eGFR is used in patients with extremes of body mass index for purposes of drug dosing, the eGFR should be multiplied by the estimated BMI. CHEM PANEL Calcium Lvl 9.1 8.5 - 10.5 06/06 [facility] CHEM PANEL AGAP 12.4 10.0 - 06/06 20.0 [facility] CHEM PANEL CO2 23 24 - 32 06/06 [facility] CHEM PANEL Glucose Lvl 99 70 - 99 06/06 [facility] CHEM PANEL Chloride Lvl 99 95 - 109 06/06 [facility] CHEM PANEL Sodium Lvl 130 135 - 145 06/06 [facility] CHEM PANEL Potassium Lvl 4.4 3.5 - 5.1 06/06 [place] [facility] CHEM PANEL BUN 7 7 - 22 06/06 [facility] CHEM PANEL Creatinine 0.6 0.5 - 1.4 06/06 [facility] [place] HEMATOLOGY Segs-Bands # 5.3 1.5 - 8.1 06/06 [facility] HEMATOLOGY Basophils 0.7 0.0 - 1.0 06/06 [facility] HEMATOLOGY Eosinophils # 0.2 0.0 - 0.5 06/06 [facility] HEMATOLOGY Monocytes # 0.6 0.0 - 0.8 06/06 [facility] HEMATOLOGY Basophils # 0.1 0.0 - 0.2 06/06 [facility] HEMATOLOGY Lymphocytes # 1.2 1.0 - 5.5 06/06 [facility] HEMATOLOGY Lymphocytes 16.2 20.0 - 06/06 40.0 [facility] HEMATOLOGY Segs 72.2 45.0 - 06/06 [place] 75.0 [facility] HEMATOLOGY Eosinophils 3.0 0.0 - 4.0 06/06 [facility] HEMATOLOGY Monocytes 7.9 2.0 - 12.0 06/06 [facility] HEMATOLOGY MPV 7.9 7.4 - 10.4 06/06 [facility] HEMATOLOGY MCH 29.0 27.0 - 06/06 [place] 31.0 [facility] HEMATOLOGY MCV 86.5 80.0 - 06/06 [place] 98.0 [facility] HEMATOLOGY RDW 15.1 11.5 - 06/06 14.5 [facility] HEMATOLOGY MCHC 33.6 32.0 - 06/06 [place] 36.0 [facility] HEMATOLOGY Platelet 395 133 - 450 06/06 [facility] HEMATOLOGY Hct 29.2 36.0 - 06/06 [place] 48.0 [facility] HEMATOLOGY WBC 7.4 3.7 - 10.4 06/06 [facility] HEMATOLOGY Hgb 9.8 12.0 - 06/06 [place] 16.0 [facility] HEMATOLOGY RBC 3.38 4.20 - 06/06 [place] 5.40 [facility] CARDIAC CK MB Index 1.8 0.0 - 2.5 06/06 [facility] CARDIAC CK MB 4.4 0.5 - 3.6 06/06 [facility] CARDIAC Total CK 246 12 - 191 06/06 [facility] CARDIAC Troponin-I <0.02 0.00 - 06/06 [facility] 0.40 /2014 [facility] CARDIAC Troponin-T <0.010 0.000 - 06/06 [facility] 0.100 /2014 [facility] CHEM PANEL Phosphorus 2.2 2.5 - 4.5 06/05 [facility] CHEM PANEL Magnesium Lvl 2.3 1.8 - 2.4 06/05 [facility] CHEM PANEL eGFR 89 06/05 [facility] Comment: The Medical eGFR is Center calculated using the CKD-EPI formula. In most young, healthy individuals the eGFR will be >90 mL/min/1.73m2 . The eGFR declines with age. An eGFR of 60-89 may be normal in some populations, particularly the elderly, for whom the CKD-EPI formula has not been extensively validated. Use of the eGFR is not recommended in the following populations:< br/>
Kathy viduals with unstable creatinine concentration s, including patients and those with serious co-morbid conditions.<b r/>
Patie nts with extremes in muscle mass or diet.

The data above are obtained from the National Kidney Disease Education Program (NKDEP) which additionally recommends that when the eGFR is used in patients with extremes of body mass index for purposes of drug dosing, the eGFR should be multiplied by the estimated BMI. CHEM PANEL Calcium Lvl 8.3 8.5 - 10.5 06/05 [facility] CHEM PANEL BUN 6 7 - 22 06/05 [facility] CHEM PANEL Creatinine 0.6 0.5 - 1.4 06/05 [facility] Lvl [facility] CHEM PANEL Glucose Lvl 84 70 - 99 06/05 [facility] CHEM PANEL Potassium Lvl 3.9 3.5 - 5.1 06/05 [facility] CHEM PANEL Chloride Lvl 99 95 - 109 06/05 s [facility] CHEM PANEL CO2 23 24 - 32 06/05 [facility] CHEM PANEL Sodium Lvl 131 135 - 145 06/05 [facility] CHEM PANEL AGAP 12.9 10.0 - 06/05 [place] 20.0 /2014 [facility] HEMATOLOGY Hgb 8.8 12.0 - 06/05 [place] 16.0 /2014 [facility] HEMATOLOGY Hct 26.5 36.0 - 06/05 [place] 48.0 /2014 [facility] HEMATOLOGY MCV 86.5 80.0 - 06/05 [place] 98.0 /2014 [facility] HEMATOLOGY MPV 8.1 7.4 - 10.4 06/05 [facility] HEMATOLOGY Platelet 303 133 - 450 06/05 [facility] HEMATOLOGY RDW 15.1 11.5 - 06/05 [place] 14.5 /2014 [facility] HEMATOLOGY MCH 28.9 27.0 - 06/05 [place] 31.0 [facility] [place] HEMATOLOGY MCHC 33.3 32.0 - 06/05 [place] 36.0 /2014 [facility] HEMATOLOGY RBC 3.07 4.20 - 06/05 [place] 5.40 /2014 [facility] [place] HEMATOLOGY WBC 6.0 3.7 - 10.4 06/05 [facility] HEMATOLOGY Eosinophils 4.6 0.0 - 4.0 06/05 [facility] HEMATOLOGY Monocytes 13.1 2.0 - 12.0 06/05 [facility] HEMATOLOGY Segs 53.5 45.0 - 06/05 [place] 75.0 /2014 [facility] HEMATOLOGY Lymphocytes 27.4 20.0 - 06/05 [place] 40.0 [facility] HEMATOLOGY Basophils # 0.1 0.0 - 0.2 06/05 [facility] HEMATOLOGY Eosinophils # 0.3 0.0 - 0.5 06/05 [facility] HEMATOLOGY Lymphocytes # 1.6 1.0 - 5.5 06/05 [facility] HEMATOLOGY Monocytes # 0.8 0.0 - 0.8 06/05 [facility] HEMATOLOGY Segs-Bands # 3.2 1.5 - 8.1 06/05 [facility] HEMATOLOGY Basophils 1.4 0.0 - 1.0 06/05 [facility] CHEM PANEL Magnesium Lvl 2.0 1.8 - 2.4 06/04 [facility] HEMATOLOGY PTT 31.8 22.9 - 06/04 [place] 35.8 [facility] HEMATOLOGY INR 1.08 0.85 - 06/04 [facility] 1.17 /2014 [facility] HEMATOLOGY PT 14.1 12.0 - 06/04 14.7 [facility] CHEM PANEL eGFR 72 06/04 Result Comment: The Medical eGFR is Center calculated using the CKD-EPI formula. In most young, healthy individuals the eGFR will be >90 mL/min/1.73m2 . The eGFR declines with age. An eGFR of 60-89 may be normal in some populations, particularly the elderly, for whom the CKD-EPI formula has not been extensively validated. Use of the eGFR is not recommended in the following populations:< br/>
Kathy viduals with unstable creatinine concentration s, including patients and those with serious co-morbid conditions.<b r/>
Patie nts with extremes in muscle mass or diet.

The data above are obtained from the National Kidney Disease Education Program (NKDEP) which additionally recommends that when the eGFR is used in patients with extremes of body mass index for purposes of drug dosing, the eGFR should be multiplied by the estimated BMI. CHEM PANEL Sodium Lvl 132 135 - 145 06/04 [facility] CHEM PANEL Chloride Lvl 99 95 - 109 06/04 [facility] CHEM PANEL Potassium Lvl 3.9 3.5 - 5.1 06/04 [facility] CHEM PANEL CO2 22 24 - 32 06/04 [facility] CHEM PANEL Calcium Lvl 7.9 8.5 - 10.5 06/04 [facility] CHEM PANEL AGAP 14.9 10.0 - 06/04 20.0 [facility] CHEM PANEL Creatinine 0.8 0.5 - 1.4 06/04 [facility] CHEM PANEL Glucose Lvl 136 70 - 99 06/04 [facility] CHEM PANEL BUN 4 7 - 22 06/04 [facility] CHEM PANEL Calcium Lvl 8.4 8.5 - 10.5 06/04 [facility] CHEM PANEL Phosphorus 2.1 2.5 - 4.5 06/04 [facility] CHEM PANEL Total Protein 6.8 6.4 - 8.4 06/04 [facility] CHEM PANEL AST 16 0 - 37 06/04 [facility] CHEM PANEL ALT 17 0 - 65 06/04 [facility] CHEM PANEL Albumin Lvl 2.7 3.5 - 5.0 06/04 s [facility] CHEM PANEL Bili Direct 0.1 0.0 - 0.3 06/04 [facility] s [facility] CHEM PANEL Alk Phos 85 39 - 136 06/04 [facility] CHEM PANEL Bili Total 0.3 0.2 - 1.3 06/04 [facility] CHEM PANEL Bili Indirect 0.2 0.0 - 1.0 06/04 [facility] CHEM PANEL Globulin 4.1 2.0 - 4.0 06/04 [facility] CHEM PANEL A/G Ratio 0.7 0.7 - 1.6 06/04 [facility] CHEM PANEL Ammonia 44.0 <=45.0 06/04 [facility] uMol/L [facility] CHEM PANEL Lactic Acid 3.1 0.5 - 2.2 06/04 s l [facility] HEMATOLOGY RDW 15.0 11.5 - 06/04 14.5 [facility] HEMATOLOGY MCHC 32.7 32.0 - 06/04 36.0 [facility] HEMATOLOGY MCH 28.4 27.0 - 06/04 31.0 [facility] HEMATOLOGY MCV 86.8 80.0 - 06/04 98.0 [facility] HEMATOLOGY Platelet 312 133 - 450 06/04 [facility] HEMATOLOGY MPV 7.9 7.4 - 10.4 06/04 [facility] HEMATOLOGY Hct 28.4 36.0 - 06/04 [place] 48.0 /2014 [facility] HEMATOLOGY Hgb 9.3 12.0 - 06/04 [place] 16.0 [facility] HEMATOLOGY RBC 3.27 4.20 - 06/04 [place] 5.40 /2014 [facility] HEMATOLOGY WBC 8.9 3.7 - 10.4 06/04 2014 [facility] HEMATOLOGY Basophils 0.4 0.0 - 1.0 06/04 [facility] HEMATOLOGY Segs-Bands # 6.2 1.5 - 8.1 06/04 [place] [facility] HEMATOLOGY Eosinophils 1.1 0.0 - 4.0 06/04 [place] [facility] HEMATOLOGY Monocytes 10.9 2.0 - 12.0 06/04 [facility] HEMATOLOGY Lymphocytes 17.3 20.0 - 06/04 [place] 40.0 [facility] HEMATOLOGY Segs 70.3 45.0 - 06/04 [place] 75.0 [facility] HEMATOLOGY Eosinophils # 0.1 0.0 - 0.5 06/04 [place] [facility] HEMATOLOGY Monocytes # 1.0 0.0 - 0.8 06/04 a s [facility] HEMATOLOGY Lymphocytes # 1.5 1.0 - 5.5 06/04 [facility]a [facility] PARATHYROID Ca Norm WB 1.08 1.05 - 06/04 [place] PROFILE 1. [facility] PARATHYROID Ca Ion WB 1.08 1.05 - 06/04 [place] PROFILE 1. [facility] HEMATOLOGY Basophils # 0.1 0.0 - 0.2 06/03 a s [facility] HEMATOLOGY PTT 31.8 22.9 - 06/02 [place] 35.8 /2014 [facility] URINE AND UA Bacteria Few /HPF None Seen 06/02 [facility] s STOOL /HPF /2014 [facility] URINE AND UA RBC 8 0 - 2 06/02 [facility] URINE AND UA Hyal Cast 8 0 - 2 06/02 [facility] STOOL /2014 [facility] URINE AND UA Mucus Few /LPF None Seen 06/02 [facility] STOOL /LPF /2014 [facility] URINE AND UA Renal Epi 8 <=0 /LPF 06/02 [facility] STOOL /2014 [facility] URINE AND UA WBC >182 0 - 5 06/02 [facility] STOOL /2014 [facility] URINE AND UA Sq Epi Many /LPF Few /LPF 06/02 [facility] STOOL /2014 [facility] URINE AND UA 0.2 0.1 - 1.0 06/02 [facility] [place] [facility] Urobilinogen /[address] [place] [address] URINE AND UA Nitrite Negative Negative 06/02 [facility] [place] [facility] (06/02/15 5:30 PM) /2014 [facility] URINE AND UA Leuk Est Moderate Negative 06/02 [facility] STOOL *ABN* /2014 [facility] (06/02/15 5:30 PM) [place] URINE AND Micro? Performed 06/02 [facility] STOOL (06/02/15 5:30 PM) /2014 [facility] URINE AND UA Blood Moderate Negative 06/02 [facility] STOOL *ABN* /2014 [facility] (06/02/15 5:30 PM) [place] URINE AND UA Ketones Trace Negative 06/02 [facility] STOOL *ABN* /2014 [facility] (06/02/15 5:30 PM) [place] URINE AND UA Bili Negative Negative 06/02 [facility] STOOL *NA* /2014 [facility] (06/02/15 5:30 PM) [place] URINE AND UA Turbidity Slight Cloudy Clear 06/02 [facility] STOOL (06/02/15 5:30 PM) /2014 [facility] URINE AND UA Color Yellow Yellow 06/02 [facility] STOOL *NA* /2014 [facility] (06/02/15 5:30 PM) [place] URINE AND UA Spec Grav 1.020 <=1.030 06/02 [facility] STOOL /2014 [facility] URINE AND UA pH 5.5 5.0 - 8.0 06/02 [facility] STOOL /2014 [facility] URINE AND UA Protein Trace Negative 06/02 [facility] STOOL *ABN* /2014 [facility] (06/02/15 5:30 PM) [place] URINE AND UA Glucose Negative Negative 06/02 [facility] STOOL (06/02/15 5:30 PM) /2014 [facility] BLOOD BANK ABO/Rh A POS 06/02 [facility] RESULTS /2014 [facility] BLOOD BANK Antibody Scrn Negative 06/02 [place] RESULTS (06/02/15 1:05 PM) /2014 [facility] HEMATOLOGY INR 0.97 0.85 - 06/02 [place] 1. /2014 [facility] HEMATOLOGY PT 12.9 12.0 - 06/02 [place] 14.7 /2014 [facility] HEMATOLOGY PTT 26.8 22.9 - 06/02 [place] 35.8 /2014 [facility] SPECIAL Hgb A1C 5.8 <=5.6 % 06/02 [place] CHEMISTRY /2014 [facility] BLOOD BANK Platelet Product available 06/02 [place] RESULTS product (06/02/15 6:24 AM) /2014 [facility] BLOOD BANK FFP product Product available 06/02 [facility] RESULTS (06/02/15 6:24 AM) /2014 [facility] BLOOD BANK RBC product Product available 06/02 [place] RESULTS (06/02/15 6:23 AM) /2014 [facility] CHEM PANEL eGFR 90 07/13 <sup>1</sup>R esult Medical Comment: The Center eGFR is calculated using the CKD-EPI formula. In most young, healthy individuals the eGFR will be >90 mL/min/1.73m2 . The eGFR declines with age. An eGFR of 60-89 may be normal in some populations, particularly the elderly, for whom the CKD-EPI formula has not been extensively validated. Use of the eGFR is not recommended in the following populations:& lt;br/>
I ndividuals with unstable creatinine concentration s, including patients and those with serious co-morbid conditions.<b r/>
Patie nts with extremes in muscle mass or diet.

The data above are obtained from the National Kidney Disease Education Program (NKDEP) which additionally recommends that when the eGFR is used in patients with extremes of body mass index for purposes of drug dosing, the eGFR should be multiplied by the estimated BMI. CHEM PANEL CO2 28 24 - 32 07/13 [facility] CHEM PANEL Calcium Lvl 8.9 8.5 - 10.5 07/13 [facility] CHEM PANEL Glucose Lvl 64 70 - 99 07/13 <sup>2</sup>I nterpretive Medical Data: Adult Center reference range values reflect the clinical guidelines
of the [place] [employer]. CHEM PANEL BUN 12 7 - 22 07/13 [facility] CHEM PANEL Sodium Lvl 139 135 - 145 07/13 [facility] CHEM PANEL Creatinine 0.6 0.5 - 1.4 07/13 l [facility] CHEM PANEL Potassium Lvl 4.3 3.5 - 5.1 07/13 [place] [facility] CHEM PANEL Chloride Lvl 103 95 - 109 07/13 [facility] CHEM PANEL AGAP 12.3 10.0 - 07/13 20.0 [facility] HEMATOLOGY WBC 6.4 3.7 - 10.4 07/13 [facility] HEMATOLOGY RBC 3.91 4.20 - 07/13 [place] 5.40 [facility] HEMATOLOGY Hgb 11.7 12.0 - 07/13 [facility] [place] 16.0 [facility] HEMATOLOGY Hct 34.9 36.0 - 07/13 [facility] 48.0 /2013 [facility] HEMATOLOGY MPV 8.5 7.4 - 10.4 07/13 [facility] HEMATOLOGY MCV 89.2 80.0 - 07/13 [facility] 98.0 /2013 [facility] HEMATOLOGY MCH 29.9 27.0 - 07/13 [place] 31.0 /2013 [facility] HEMATOLOGY MCHC 33.5 32.0 - 07/13 [facility] 36.0 /2013 [facility] HEMATOLOGY RDW 15.7 11.5 - 07/13 [facility] 14.5 /2013 [facility] HEMATOLOGY Platelet 280 133 - 450 07/13 [facility] HEMATOLOGY PTT 32.4 22.9 - 07/13 <sup>4</sup>[place] 35.8 nterpretive Medical Data: Heparin Center Therapeutic Range: 57 - 92 [facility] HEMATOLOGY PT 14.2 12.0 - 07/13 [facility] 14.7 [facility] HEMATOLOGY INR 1.09 0.85 - 07/13 <sup>3</sup>[place] 1.17 nterpretive Medical Data: Center RECOMMENDED RANGES FOR PROTIME INR:
2.0-3.0 for most medical and surgical thromboemboli c states.
2.5-3.5 for artificial heart valves and recurrent embolism.<br/ >
INR SHOULD BE USED ONLY FOR PATIENTS ON STABLE ANTICOAGULANT THERAPY. HEMATOLOGY Sed Rate 8 0 - 20 07/13 [facility] HEMATOLOGY Coag Index 1.5 -3.0-3.0 - 07/13 [place] 3.0 [facility] HEMATOLOGY TEG Data See Note 5 07/13 <sup>5</sup>I [facility] (07/13/14 10:40 AM) /2013 nterpretive M edical Data: Normal Center ranges are for citrated whole blood with kaolin activator.

R TIME: Reflects the degree of anti-coagulat ion due to LMWH, unfractionate d heparin, and coumadin as well as non-specific< br/>factor deficiencies.

K TIME, ALPHA ANGLE, AND MA(MAX AMPLITUDE): Have been
asso ciated with the platelet release reaction and fibrin
po lymer formation. These parameters assess the speed of clot
f ormation and the tensil strength of the clot. Higher levels
ar e associated with hypercoagulab le states.
< br/>G VALUE: Another measure of clot strength.<br/ >
LY30 : Percent lysis in 30 Minutes is associated with the degree
of fibrinolysis.

CI or COAG INDEX: A calculation from the above measured data
kathy cating an overall hyper or hypo coagulability with values
ab ove (plus) +3.0 being relatively hypercoagulab le and those
bel ow (minus) -3.0 being relatively hypocoagulabl e.

T hese measurements are functional in nature with many variables<br/ >and require close clinical correlation.< br/>
Thro mboelasograph y (TEG) is mostly used to monitor significant coagulopathy in trauma patients or surgical patients. It assesses gloabal (primary and secondary) hemostasis using whole blood and therefore, not expected to correlate well with conventional coagulation tests. TEG results need to be correlated with clinical evaluation for patient management. HEMATOLOGY Angle 74.0 53.0 - 07/13 [place] 72.0 [facility] HEMATOLOGY Max Amp 58.6 50.0 - 07/13 70.0 [facility] HEMATOLOGY G-value 7.1 4.5 - 11.0 07/13 [facility] HEMATOLOGY Ly30 4.2 0.0 - 7.5 07/13 [facility] HEMATOLOGY R-time 4.7 5.0 - 10.0 07/13 [facility] HEMATOLOGY K-time 1.1 1.0 - 3.0 07/13 [facility] HEMATOLOGY TEG Interp Thrombelas 07/13 [place] [facility] show shortened value of R and increased value of Angle Alpha. These findings are suggestive of enzymatic hypercoagu lation. CPT:22268 HEMATOLOGY Basophils 1.1 0.0 - 1.0 07/13 [facility] HEMATOLOGY Segs-Bands # 2.7 1.5 - 8.1 07/13 [facility] HEMATOLOGY Eosinophils 3.4 0.0 - 4.0 07/13 [facility] HEMATOLOGY Basophils # 0.1 0.0 - 0.2 07/13 [facility] HEMATOLOGY Eosinophils # 0.2 0.0 - 0.5 07/13 [place] [facility] HEMATOLOGY Lymphocytes # 2.8 1.0 - 5.5 07/13 [place] [facility] HEMATOLOGY Monocytes # 0.6 0.0 - 0.8 07/13 [facility] HEMATOLOGY Monocytes 8.7 2.0 - 12.0 07/13 [facility] HEMATOLOGY Segs 43.1 45.0 - 07/13 [place] 75.0 [facility] HEMATOLOGY Lymphocytes 43.7 20.0 - 07/13 40.0 [facility] IMMUNOLOGY C-REACTIVE 5.5 <=2.9 mg/L 07/13 [facility] SPECIAL Hgb A1C 5.1 <=5.6 % 07/13 [facility] CHEMISTRY [facility] BEDSIDE Glucose POC 116 70 - 99 12/30 [place] <sup>1</sup>I [facility] as GLUCOSE nterpretive Medical TESTING Data: [place] Upper Reportable Limit: 200 mg/dL. BEDSIDE Glucose POC 103 70 - 99 12/30 [place] <sup>2</sup>I [facility] as GLUCOSE nterpretive Medical TESTING Data: [place] Upper Reportable Limit: 200 mg/dL. BEDSIDE Gluc POC Notified 12/30 [facility] GLUCOSE Comment 1 RN/MD /2013 [facility] TESTING Center BEDSIDE Glucose POC 127 70 - 99 12/30 [place] <sup>3</sup>I [facility] as GLUCOSE nterpretive Medical TESTING Data: Center Upper Reportable Limit: 200 mg/dL. CHEMISTRY Magnesium Lvl 1.7 1.8 - 2.4 12/29 LOW [facility] CHEMISTRY Phosphorus 2.6 2.5 - 4.5 12/29 Normal [facility] CHEMISTRY eGFR 103 12/29 <sup>4</sup>R esult Medical Comment: The Center eGFR is calculated using the CKD-EPI formula. In most young, healthy individuals the eGFR will be >90 mL/min/1.73m2 . The eGFR declines with age. An eGFR of 60-89 may be normal in some populations, particularly the elderly, for whom the CKD-EPI formula has not been extensively validated. Use of the eGFR is not recommended in the following populations:& lt;br/>
I ndividuals with unstable creatinine concentration s, including patients and those with serious co-morbid conditions.<b r/>
Patie nts with extremes in muscle mass or diet.

The data above are obtained from the National Kidney Disease Education Program (NKDEP) which additionally recommends that when the eGFR is used in patients with extremes of body mass index for purposes of drug dosing, the eGFR should be multiplied by the estimated BMI. CHEMISTRY Calcium Lvl 8.1 8.5 - 10.5 12/29 LOW [facility] CHEMISTRY AGAP 14.4 10.0 - 12/29 [facility] 20.0 [facility] CHEMISTRY Glucose Lvl 73 70 - 99 12/29 Normal <sup>7</sup>I T ex nterpretive Medical Data: Adult Center reference range values reflect the clinical guidelines
of the [place] [employer]. CHEMISTRY BUN 10 7 - 22 12/29 Normal [facility] CHEMISTRY Creatinine 0.4 0.5 - 1.4 12/29 LOW [facility] l [facility] CHEMISTRY Sodium Lvl 136 135 - 145 12/29 Normal [facility] CHEMISTRY Chloride Lvl 99 95 - 109 12/29 [facility] CHEMISTRY Potassium Lvl 4.4 3.5 - 5.1 12/29 Normal [facility] CHEMISTRY CO2 27 24 - 32 12/29 [facility] HEMATOLOGY Segs 62.9 45.0 - 12/29 [facility] 75.0 [facility] HEMATOLOGY Lymphocytes 24.8 20.0 - 02 [facility] 40.0 [facility] HEMATOLOGY Basophils 0.5 0.0 - 1.0 12/29 Normal [facility] HEMATOLOGY Monocytes 10.6 2.0 - 12.0 12/29 [facility] HEMATOLOGY Eosinophils 1.2 0.0 - 4.0 12/29 [facility] HEMATOLOGY Segs-Bands # 4.7 1.5 - 8.1 02 Normal [facility] HEMATOLOGY Lymphocytes # 1.8 1.0 - 5.5 12/29 [facility] HEMATOLOGY Eosinophils # 0.1 0.0 - 0.5 12/29 [facility] HEMATOLOGY Monocytes # 0.8 0.0 - 0.8 12/29 [facility] HEMATOLOGY Platelet 306 133 - 450 12/29 [facility] HEMATOLOGY MPV 7.9 7.4 - 10.4 12/29 Normal [facility] HEMATOLOGY Hgb 11.2 12.0 - 02 LOW [place] 16.0 /2013 [facility] Center HEMATOLOGY WBC X 10x3 7.4 3.7 - 10.4 12/29 Normal [facility] HEMATOLOGY RBC X 10x6 3.80 4.20 - 02 LOW [place] 5.40 /2013 [facility] HEMATOLOGY Hct 33.5 36.0 - 02 LOW [place] 48.0 /2013 [facility] HEMATOLOGY RDW 17.4 11.5 - 02 HI [place] 14.5 /2013 [facility] HEMATOLOGY MCHC 33.4 32.0 - 02 Normal [place] 36.0 /2013 [facility] Center HEMATOLOGY MCH 29.5 27.0 - 02 Normal [place] 31.0 /2013 [facility] HEMATOLOGY MCV 88.1 81.0 - 12/29 Normal [place] 99.0 /2013 [facility] Center CHEMISTRY Phosphorus 3.1 2.5 - 4.5 12/28 Normal [facility] Center CHEMISTRY Magnesium Lvl 1.7 1.8 - 2.4 12/28 LOW [facility] CHEMISTRY AGAP 12.5 10.0 - 12/28 Normal [place] 20.0 [facility] CHEMISTRY BUN 15 7 - 22 12/28 Normal [facility] Center CHEMISTRY Glucose Lvl 81 70 - 99 12/28 Normal <sup>8</sup>I T ex nterpretive Medical Data: Adult Center reference range values reflect the clinical guidelines
of the [place] [employer]. CHEMISTRY Creatinine 0.6 0.5 - 1.4 12/28 Normal [facility] [place] Lvl /2013 [facility] CHEMISTRY Calcium Lvl 8.7 8.5 - 10.5 12/28 Normal [facility] [facility] CHEMISTRY Sodium Lvl 132 135 - 145 12/28 LOW [facility] CHEMISTRY Chloride Lvl 96 95 - 109 12/28 Normal [facility] CHEMISTRY Potassium Lvl 4.5 3.5 - 5.1 12/28 Normal [facility] CHEMISTRY CO2 28 24 - 32 12/28 Normal [facility] CHEMISTRY eGFR 90 12/28 <sup>5</sup>R esult Medical Comment: The Center eGFR is calculated using the CKD-EPI formula. In most young, healthy individuals the eGFR will be >90 mL/min/1.73m2 . The eGFR declines with age. An eGFR of 60-89 may be normal in some populations, particularly the elderly, for whom the CKD-EPI formula has not been extensively validated. Use of the eGFR is not recommended in the following populations:& lt;br/>
I ndividuals with unstable creatinine concentration s, including patients and those with serious co-morbid conditions.<b r/>
Patie nts with extremes in muscle mass or diet.

The data above are obtained from the National Kidney Disease Education Program (NKDEP) which additionally recommends that when the eGFR is used in patients with extremes of body mass index for purposes of drug dosing, the eGFR should be multiplied by the estimated BMI. HEMATOLOGY Basophils # 0.2 0.0 - 0.2 12/28 Normal s [facility] HEMATOLOGY Eosinophils # 0.2 0.0 - 0.5 12/28 [place] [facility] HEMATOLOGY Elliptocyte Slight None Seen 12/28 ABN s *ABN* [facility] (12/28/2013 12:35:00) Ce nter HEMATOLOGY Polychrom Slight None Seen 12/28 [facility] (12/28/2013 12:35:00) Nc [facility]ical Center HEMATOLOGY Monocytes 6.5 2.0 - 12.0 12/28 Normal [facility] HEMATOLOGY Lymphocytes 4.8 20.0 - 12/28 LOW [place] 40.0 [facility] HEMATOLOGY Segs 84.5 45.0 - 12/28 [facility] [place] 75.0 /2013 [facility] HEMATOLOGY Plt Morph See Note 10 12/28 Normal <sup>10</sup> [facility] (12/28/2013 12:35:00) Result Me dical Comment: Due Center to occassional clumps, the actual count may be slightly higher. HEMATOLOGY Monocytes # 0.7 0.0 - 0.8 12/28 [place] [facility] HEMATOLOGY Segs-Bands # 8.9 1.5 - 8.1 12/28 [facility] HEMATOLOGY Basophils 2.3 0.0 - 1.0 12/28 [facility] HEMATOLOGY Eosinophils 1.9 0.0 - 4.0 12/28 [place] [facility] HEMATOLOGY Lymphocytes # 0.5 1.0 - 5.5 12/28 [facility] [place] [facility] HEMATOLOGY RDW 17.8 11.5 - 12/28 [facility] [place] 14.5 /2013 [facility] [place] HEMATOLOGY Platelet 336 133 - 450 12/28 Normal [facility] HEMATOLOGY MPV 8.0 7.4 - 10.4 12/28 Normal [facility] HEMATOLOGY MCH 28.8 27.0 - 12/28 [facility] [place] 31.0 /2013 [facility] [place] HEMATOLOGY MCHC 32.7 32.0 - 12/28 [facility] [place] 36.0 /2013 [facility] HEMATOLOGY RBC X 10x6 4.08 4.20 - 12/28 [facility] [place] 5.40 /2013 [facility] HEMATOLOGY Hgb 11.7 12.0 - 12/28 [facility] [place] 16.0 /2013 [facility] HEMATOLOGY Hct 35.9 36.0 - 12/28 [facility] [place] 48.0 /2013 [facility] HEMATOLOGY MCV 88.0 81.0 - 12/28 [facility] [place] 99.0 /2013 [facility] HEMATOLOGY WBC X 10x3 10.6 3.7 - 10.4 12/28 [facility] [place] [facility] BEDSIDE Gluc POC Notified 12/28 [facility] GLUCOSE Comment 1 RN/MD /2014 [facility] TESTING Center BEDSIDE Gluc POC Notified 12/28 [facility] GLUCOSE Comment 1 RN/MD /2014 [facility] TESTING Center URINALYSIS UA Mucus Few /LPF None Seen 12/27 Normal [facility] URINALYSIS UA Bacteria Moderate None Seen 12/27 [facility] [place] [facility] URINALYSIS UA WBC 3-5 /HPF 0 - 5 12/27 Normal Medical [facility] URINALYSIS UA RBC 3-5 /HPF 0 - 2 12/27 [facility] URINALYSIS UA Turbidity Slight Cloudy Clear 12/27 Normal [facility] (12/27/2013 12:40:12) [facility] URINALYSIS UA Spec Grav 1.010 <=1.030 12/27 Normal Medical [facility] URINALYSIS UA Glucose Negative Negative 12/27 Normal [facility] (12/27/2013 12:40:12) Nc dical Center URINALYSIS UA Protein 100 mg/dL Negative 12/27 [facility] [place] URINALYSIS UA pH 6.0 5.0 - 8.0 12/27 Normal [facility] URINALYSIS UA 0.2 0.1 - 1.0 12/27 Normal [facility] Urobilinogen [facility] [place] URINALYSIS UA Nitrite Negative Negative 12/27 Normal [facility] (12/27/2013 12:40:12) [facility] URINALYSIS UA Leuk Est Moderate Negative 12/27 [facility] (12/27/2013 12:40:12) Ce nter URINALYSIS UA Sq Epi Occasional Few 12/27 Normal /[facility] URINALYSIS UA Color Yellow Yellow 12/27 [facility] (12/27/2013 12:40:12) Ce nter URINALYSIS UA Ketones Negative Negative 12/27 [facility] (12/27/2013 12:40:12) Ce nter URINALYSIS UA Blood Large Negative 12/27 [facility] (12/27/2013 12:40:12) Ce nter URINALYSIS UA Bili Negative Negative 12/27 [facility] (12/27/2013 12:40:12) Ce nter HEMATOLOGY Monocytes # 0.6 0.0 - 0.8 12/27 Normal [facility] [place] HEMATOLOGY Lymphocytes # 1.7 1.0 - 5.5 12/27 [place] [facility] HEMATOLOGY Segs-Bands # 11.0 1.5 - 8.1 12/27 [facility] HEMATOLOGY Basophils 0.9 0.0 - 1.0 02 Normal [facility] [place] HEMATOLOGY Eosinophils 0.9 0.0 - 4.0 12/27 [place] [facility] HEMATOLOGY Basophils # 0.1 0.0 - 0.2 12/27 [place] [facility] HEMATOLOGY Eosinophils # 0.1 0.0 - 0.5 12/27 [place]2013 [facility] Center HEMATOLOGY Segs 81.3 45.0 - 02 [place] 75.0 /2013 [facility] HEMATOLOGY Monocytes 4.3 2.0 - 12.0 12/27 Normal [facility] HEMATOLOGY Lymphocytes 12.6 20.0 - 12/27 LOW [place] 40.0 /2013 [facility] HEMATOLOGY Hct 32.3 36.0 - 02 LOW [place] 48.0 /2013 [facility] HEMATOLOGY Hgb 10.5 12.0 - 02 LOW [place] 16.0 /2013 [facility] HEMATOLOGY RBC X 10x6 3.69 4.20 - 02 LOW [place] 5.40 /2013 [facility] [place] HEMATOLOGY WBC X 10x3 13.6 3.7 - 10.4 12/27 [facility] a s [facility] [place] HEMATOLOGY MCHC 32.6 32.0 - 02 Normal [place] 36.0 /2013 [facility] HEMATOLOGY MPV 7.5 7.4 - 10.4 12/27 Normal [facility] HEMATOLOGY RDW 16.8 11.5 - 02 [facility] [place] 14.5 /2013 [facility] [place] HEMATOLOGY Platelet 297 133 - 450 12/27 Normal [facility] HEMATOLOGY MCH 28.5 27.0 - 02 Normal [place] 31.0 /2013 [facility] [place] HEMATOLOGY MCV 87.4 81.0 - 02 Normal [place] 99.0 /2013 [facility] [place] HEMATOLOGY aPTT 27.7 22.9 - 02 Normal <sup>12</sup> [place] 35.8 /2013 Interpretive Medical Data: Heparin Center Therapeutic Range: 57 - 92 [facility] HEMATOLOGY INR 1.00 0.85 - 12/27 Normal <sup>[place]sup> [place] 1.17 Interpretive Medical Data: Center RECOMMENDED RANGES FOR PROTIME INR:
2.0-3.0 for most medical and surgical thromboemboli c states.
2.5-3.5 for artificial heart valves and recurrent embolism.<br/ >
INR SHOULD BE USED ONLY FOR PATIENTS ON STABLE ANTICOAGULANT THERAPY. HEMATOLOGY PROTIME 13.1 12.0 - 02 Normal [facility] 14.7 [facility] BLOOD BANK Antibody Scrn Negative 12/27 Normal [facility] as RESULTS (12/27/2013 09:09:00[facility]Rh A POS 12/27 [facility] RESULTS [facility] CHEMISTRY Globulin 4.1 2.0 - 4.0 12/27 [facility] CHEMISTRY AGAP 10.3 10.0 - 12/27 Normal [facility] 20.0 [facility] CHEMISTRY B/C Ratio 26 6 - 25 12/27 [facility] CHEMISTRY A/G Ratio 0.5 0.7 - 1.6 12/27 LOW [facility] CHEMISTRY eGFR 86 12/27 <sup>6</sup>R esult Medical Comment: The Center eGFR is calculated using the CKD-EPI formula. In most young, healthy individuals the eGFR will be >90 mL/min/1.73m2 . The eGFR declines with age. An eGFR of 60-89 may be normal in some populations, particularly the elderly, for whom the CKD-EPI formula has not been extensively validated. Use of the eGFR is not recommended in the following populations:& lt;br/>
I ndividuals with unstable creatinine concentration s, including patients and those with serious co-morbid conditions.<b r/>
Patie nts with extremes in muscle mass or diet.

The data above are obtained from the National Kidney Disease Education Program (NKDEP) which additionally recommends that when the eGFR is used in patients with extremes of body mass index for purposes of drug dosing, the eGFR should be multiplied by the estimated BMI. CHEMISTRY Sodium Lvl 133 135 - 145 12/27 [facility] CHEMISTRY Potassium Lvl 5.3 3.5 - 5.1 12/27 [facility] [place] [facility] Center CHEMISTRY Creatinine 0.7 0.5 - 1.4 12/27 Normal [facility] Lvl [facility] CHEMISTRY BUN 18 7 - 22 12/27 [facility] CHEMISTRY Alk Phos 120 39 - 136 12/27 Normal [facility] CHEMISTRY Glucose Lvl 76 70 - 99 12/27 Normal <sup>9</sup>I T ex nterpretive Medical Data: Adult Center reference range values reflect the clinical guidelines
of the [place] [employer]. CHEMISTRY Albumin Lvl 2.2 3.5 - 5.0 12/27 LOW [facility] CHEMISTRY ALANINE 15 0 - 65 12/27 Normal [facility] AMINO [facility] CHEMISTRY Calcium Lvl 9.3 8.5 - 10.5 12/27 [place] [facility] CHEMISTRY Chloride Lvl 97 95 - 109 12/27 Normal [facility] CHEMISTRY CO2 31 24 - 32 12/27 Normal [facility] CHEMISTRY Bili Total 0.4 0.2 - 1.3 12/27 Normal [facility] CHEMISTRY Total Protein 6.3 6.4 - 8.4 12/27 LOW [place] [facility] CHEMISTRY ASPARTATE 21 0 - 37 12/27 Normal [facility] CHEMISTRY Hgb A1C 4.4 <=5.6 12/27 Normal [facility] HEMATOLOGY Basophils # 0.1 0.0 - 0.2 12/27 Normal a [facility] BLOOD BANK ABO/Rh A POS 04/26 Unknown RESULTS [facility] BLOOD BANK Antibody Scrn Negative 04/26 Normal [facility] as RESULTS (04/26/2013 08:53:00) /[facility] AGAP 6.9 10.0 - 04/26 LOW [place] 20.0 [facility] CHEMISTRY eGFR 91 04/26 NA <sup>1</sup>R esult Medical Comment: The Center eGFR is calculated using the CKD-EPI formula. In most young, healthy individuals the eGFR will be >90 mL/min/1.73m2 . The eGFR declines with age. An eGFR of 60-89 may be normal in some populations, particularly the elderly, for whom the CKD-EPI formula has not been extensively validated. Use of the eGFR is not recommended in the following populations:& lt;br/>
I ndividuals with unstable creatinine concentration s, including patients and those with serious co-morbid conditions.<b r/>
Patie nts with extremes in muscle mass or diet.

The data above are obtained from the National Kidney Disease Education Program (NKDEP) which additionally recommends that when the eGFR is used in patients with extremes of body mass index for purposes of drug dosing, the eGFR should be multiplied by the estimated BMI. CHEMISTRY Calcium Lvl 9.4 8.5 - 10.5 04/26 Normal [facility] CHEMISTRY Potassium Lvl 3.9 3.5 - 5.1 04/26 Normal [facility] CHEMISTRY CO2 32 24 - 32 04/26 Normal [facility] CHEMISTRY Chloride Lvl 105 95 - 109 04/26 Normal [facility] CHEMISTRY Sodium Lvl 140 135 - 145 04/26 [facility] CHEMISTRY Glucose Lvl 88 70 - 99 04/26 Normal <sup>2</sup>I T ex nterpretive Medical Data: Adult Center reference range values reflect the clinical guidelines
of the [place] [employer]. CHEMISTRY Creatinine 0.6 0.5 - 1.4 04/26 Normal [facility] CHEMISTRY BUN 7 7 - 22 04/26 Normal [facility] CHEMISTRY Hgb A1C 5.5 <=5.6 04/26 Normal <sup>3</sup>I nterpretive Medical Data: The Center reference range is based on the clinical practice guidelines
of the [place] [employer] for diabetes screening;
levels of 5.7%-6.4% are indicative of pre-diabetes. HEMATOLOGY Basophils # 0.1 0.0 - 0.2 / Normal [facility] HEMATOLOGY Basophils 1.2 0.0 - 1.0 / [place] [facility] HEMATOLOGY Eosinophils # 0.2 0.0 - 0.5 / Normal [facility] HEMATOLOGY Monocytes # 0.6 0.0 - 0.8 / Normal [facility] HEMATOLOGY Segs-Bands # 4.1 1.5 - 8.1 / Normal [facility] HEMATOLOGY Lymphocytes # 1.5 1.0 - 5.5 06/10 Normal [facility] HEMATOLOGY Monocytes 9.3 2.0 - 12.0 06/ Normal [place] /2012 [facility] HEMATOLOGY Eosinophils 3.8 0.0 - 4.0 04/26 [place] /2012 [facility] HEMATOLOGY Lymphocytes 23.3 20.0 - 04/26 Normal [place] 40.0 /2012 [facility] HEMATOLOGY Segs 62.4 45.0 - 06 Normal [place] 75.0 /2012 [facility] HEMATOLOGY MPV 7.7 7.4 - 10.4 04/26 Normal /2012 [facility] HEMATOLOGY MCH 30.5 27.0 - 04/26 Normal [place] 31.0 /2012 [facility] HEMATOLOGY RDW 13.4 11.5 - 04/26 Normal [place] 14.5 /2012 [facility] HEMATOLOGY Platelet 274 133 - 450 04/26 Normal /2012 [facility] HEMATOLOGY MCHC 33.8 32.0 - 04/26 Normal [place] 36.0 /2012 [facility] HEMATOLOGY RBC 4.15 4.20 - 04/26 LOW [place] 5.40 /2012 [facility] HEMATOLOGY WBC 6.6 3.7 - 10.4 04/26 Normal /2012 [facility] HEMATOLOGY Hgb 12.7 12.0 - 04/26 Normal [place] 16.0 /2012 [facility] HEMATOLOGY MCV 90.5 81.0 - 04/26 Normal [place] 99.0 /2012 [facility] HEMATOLOGY Hct 37.5 36.0 - 04/26 Normal [place] 48.0 /2012 [facility] HEMATOLOGY PTT 27.9 22.9 - 04/26 Normal <sup>5</sup>[place] 35.8 /2012 nterpretive Medical Data: Heparin Center Therapeutic Range: 57 - 92 Seconds HEMATOLOGY PT 13.2 12.0 - 04/26 Normal [place] 14.7 /2012 [facility] HEMATOLOGY INR 0.98 0.85 - 04/26 Normal <sup>4</sup>[place] 1.17 /2012 nterpretive Medical Data: Center RECOMMENDED RANGES FOR PROTIME INR:
2.0-3.0 for most medical and surgical thromboemboli c states.
2.5-3.5 for artificial heart valves and recurrent embolism.<br/ >
INR SHOULD BE USED ONLY FOR PATIENTS ON STABLE ANTICOAGULANT THERAPY. Pathology Reports No Data Provided for This Section Diagnostic Reports Report Value Date Source Femur series DX EXAM: XR LEFT FEMUR 2 VIEWS 09/15/[address] [facility] DATE: 09/15/2018 at 0957 hours. Center INDICATION: Fracture - post-op COMPARISON: None. TECHNIQUE: AP and lateral radiographs of the fe mur FINDINGS: There is satisfac tory alignment of the left femur, status post cephalomedullary nail and proximal and distal screws for fixation. Initially 2 screws is seen in the femoral neck. No new fracture is seen. There is diffuse osteopenia. Prior below-knee amputation is again noted. Surgical lane seen in the soft tissues. There are expected postsurgi wali soft tissue changes and skin lane. The femoral vascular stent and severe vascular calcifications are again noted. IMPRESSION: Satisfactory alignment of the femur status inter medullary nail fixation. Femur series DX EXAM: XR LEFT FEMUR 2 VIEWS 09/14/[address] [facility] DATE: 09/14/2018 10:45 PM CDT Ce nter INDICATION: - pain post-trauma ADDITIONAL INFORMATION: 'Tra nsfer from [facility] ER for L femur fx s/p [place] 5 days ago - [facility] anxiety BLE amputee' COMPARISON: None. TECHNIQUE: AP and lateral r adiographs of the left femur with a total of 5 images. FINDINGS: There is generali zed osteopenia. A comminuted and mildly displaced fracture of the distal left femoral diaphysis is noted with apex anterior angulation. No definite intra-articular extension is identified. There is a le ft below-knee amputation. Partially seen is amputation of the right femur at the mid femoral diaphysis. Soft tissue swelling surroun ding the left knee is noted. Extensive arterial calcification is present. Surgical clips are noted along the posterior left knee region. IMPRESSION: 1. Comminuted and mildly di splaced fracture of the distal left femoral diaphysis with associated soft tissue swelling. [place] SECTION: ER Hip 2/3 views uni w EXAM: XR LEFT HIP 1 VIEW AND AP PELVIS 09/14 [facility] pelvis DX DATE: 09/14/2018 9:[address] INDICATION: - femur fx COMPARISON: None TECHNIQUE: A frog-leg late ral radiograph of the left hip and a single AP radiograph of the pelvis FINDINGS: Left iliac vascula r stents are noted. An implantable device is seen projecting over the right iliac wing. An old fracture deformity of the right femoral neck is noted. No acute fracture or malalignment is identified. Mild superior joint space narrowing is noted of the hips bilaterally. The sacroiliac joints and pubic symphysis are unremarkable. No soft tissue abnormality is identified. IMPRESSION: No acute fracture of the left hip. Old fracture deformity of the right femoral neck . Moderate degenerative changes bilateral hips. [place] SECTION: ER Chest 1view DX EXAM: XR CHEST 1 VIEW 09/14/2018 [facility] edical DATE: 09/14/2018 9:[address] INDICATION: - r/o pna COMPARISON: 03/09/2014 TECHNIQUE: AP chest FINDINGS: Lines and tubes: None. Lungs and pleura: A small am ount of left pleural fluid is present. Bibasilar subsegmental atelectasis is also present. No jody consolidation or other pulmonary or pleural based abnormality is identified. Heart and mediastinum: Unrem arkable for acute abnormality. Atherosclerotic calcifications are present. Chest wall: Unremarkable. Bones: The bones are diffuse ly osteopenic. ACDF hardware is again demonstrated in the lower cervical spine. IMPRESSION: 1. Small amount of left pleural fluid. 2. Bibasilar subsegmental atelectasis. HVI VAS Reason for exam: Peripheral arterial disease 10/2016 [facility] Arterial/bypass Lower Center Ext Unilat IMPRESSION: 1. The left femoral to popliteal artery bypass i s occluded. COMMENT: Left lower extremity graysca le, color-flow, and Doppler examination of the arterial system was performed. On the left, monophasic wave forms are noted in the external iliac, common femoral, and profunda femoral arteries. The superficial femoral artery is occluded. The left femoral-popliteal bypass is occlude d. Severely attenuated monop hasic waveforms are noted in the left anterior tibial and posterior tibial arteries. Brain wo contrast CT EXAM: CT BRAIN WITHOUT CONTRAST 06/04/2015 [facility] DATE: Jun 04, 2015 02:17:00 AM INDICATION: Confusion COMPARISON: None TECHNIQUE: Contiguous axial images of brain are obtained from skull base to vertex without administration intravenous contrast material. Bone and soft tissue algorithms are provided. FINDINGS: There is no eviden ce of intraparenchymal or extra-axial hemorrhage, mass, mass-effect or hydrocephalus. Punctate area of decreased attenuation is present within left basal ganglia consistent w ith lacunar infarct. Conflue nt areas of decreased attenuation are present in the periventricular and subcortical white matter consistent with chronic microvascular ischemic changes which are advanced for age. Prior right parietal infarct is seen po steriorly. Incidental imaging of the or bits, paranasal sinuses, skull, and skull base is unremarkable. IMPRESSION: 1. Chronic microvascular isc hemic changes of the white matter with prior lacunar infarct in left basal ganglia. [These chronic white matter changes may obscure the presence of a superimposed more recent white matter infarct.] Otherwise normal CT exam ination of the brain. 2. There is no acute intracranial abnormality id entified. 3, Prior right parietal infarct present posterio rly. Angiogram leg Please see dictated report in the [facility] medical record. 06/02/2015 [facility] Chest 2 views CHEST 2 VIEWS dated 2014-03-09 20:35:00 03/09/20 [facility] COMPARISON: December 29, 2013 CLINICAL INDICATION: Hypertension FINDINGS: Frontal and later al chest radiographs are submitted for interpretation. No evidence of airspace disease. No pleural effusions or pneumothorax. Skin folds overlie left lower thorax. Cardiac si lhouette and mediastinum are unchanged. Note again of a catheter overlying lower thoracic spine. CONCLUSION: No acute abnormality identified. Chest 1view PORTABLE CHEST 2013-12-29 09:07:00 12/29/2013 [facility] COMPARISON: None CLINICAL INDICATION: Abnormal chest sounds DISCUSSION: Lung volumes are low. Platelike atelectasis is seen within both lower lobes. Upper lungs are clear. No pleural effusions or pneumothorax. Cardiac silhouette is upper normal in size. Note of aortic atherosclerosis. A ca theter overlying thoracic spine may represent a spinal catheter. IMPRESSION: Platelike atelectasis within lower l obes. Ankle wo contrast w/3D EXAM: CT left ankle WITHOUT CONTRAST. 09/2014 [facility] DATE: Dec 28, 2013 12:23:00 AM. INDICATION: Fracture. COMPARISON: Prior radiographs 12/27/2013. TECHNIQUE: Noncontrast imag es of the left ankle are obtained. Sagittal and coronal reformats are provided in multiple series. FINDINGS: There is a comminuted fractu res involving the distal tibial metaphysis with half shaft width anterior medial displacement and 2 cm overriding edges. The fracture does not extend to the articular surface . Multiple loose bone fragme nts are present at the soft tissues surrounding the fracture site. There is a comminuted fractu re involving the distal fibular metaphysis with cortical width anteromedial displacement and 2 cm overriding edges. The tibiofibular syndesmosis appears intact. The ankle mortise is maintained. There is subchondral cystic changes of the taloc alcaneal joint. Diffuse osteopenia of the visualized bones is pr esent. There is a 1.2 cm skin defec t at the antral medial aspect of the distal leg just above the fracture site. IMPRESSION: 1. Comminuted fracture of th e distal tibial and fibular metaphysis with anteromedial displacement and 2 cm overriding edges and without intra-articular extension. 2. Intact tibiofibular syndesmosis. 3. Small skin wound at the a nterior medial aspect of the distal leg just above the fracture site Ankle 3 views EXAM: XR LEFT ANKLE 3 VIEWS 12/27/2013 [facility] DATE: 2013-12-27 20:50:00 INDICATION: Closed reduction of fracture. COMPARISON: December 27, 2013; 1300 hours. COMMENTS: AP, lateral and o blique radiographs of the left ankle are submitted for interpretation. The plaster cast shown previously has been removed and the ankle has been repositioned with better ali gnment, particularly on the lateral view. The ankle mortise is also better aligned, now congruent on both AP and oblique views, as well as the lateral view. No complication is identified. IMPRESSION: Improved alignment following respli nting. Ankle 3 views EXAM: XR LEFT TIBIA 2 VIEWS 12/27/[address] [facility] EXAM: XR LEFT ANKLE 3 VIEWS Cent er EXAM: XR LEFT KNEE 3 VIEWS DATE: 2013-12-27 1258 hours INDICATION: Fracture COMPARISON: None available. TECHNIQUE: AP and lateral r adiographs of the left tibia - fibula, and AP, lateral and oblique radiographs of the left ankle and left knee FINDINGS: Examination is carson ited by severe osteopenia. Cast material obscures fine bony detail at the tibiofibular. There is a mildly comminuted distal shaft tibial fracture with 40 anterior angulation and mild anterom edial displacement in cast. A distal shaft fibular fracture demonstrate similar angulation and displacement. The proximal tibia and fibula are intact. There is no knee joint effusion. IMPRESSION: Angulated and mi ldly displaced distal shaft fractures of the left tibia and fibula. Tibia fibula series EXAM: XR LEFT TIBIA 2 VIEWS 12/27/2013 [facility] Medical EXAM: XR LEFT ANKLE 3 VIEWS Cent er EXAM: XR LEFT KNEE 3 VIEWS DATE: 2013-12-27 1258 hours INDICATION: Fracture COMPARISON: None available. TECHNIQUE: AP and lateral r adiographs of the left tibia - fibula, and AP, lateral and oblique radiographs of the left ankle and left knee FINDINGS: Examination is carson ited by severe osteopenia. Cast material obscures fine bony detail at the tibiofibular. There is a mildly comminuted distal shaft tibial fracture with 40 anterior angulation and mild anterom edial displacement in cast. A distal shaft fibular fracture demonstrate similar angulation and displacement. The proximal tibia and fibula are intact. There is no knee joint effusion. IMPRESSION: Angulated and mi ldly displaced distal shaft fractures of the left tibia and fibula. Knee 3 views EXAM: XR LEFT TIBIA 2 VIEWS 12/27/2013 [facility] Medical EXAM: XR LEFT ANKLE 3 VIEWS Cent er EXAM: XR LEFT KNEE 3 VIEWS DATE: 2013-12-27 1258 hours INDICATION: Fracture COMPARISON: None available. TECHNIQUE: AP and lateral r adiographs of the left tibia - fibula, and AP, lateral and oblique radiographs of the left ankle and left knee FINDINGS: Examination is carson ited by severe osteopenia. Cast material obscures fine bony detail at the tibiofibular. There is a mildly comminuted distal shaft tibial fracture with 40 anterior angulation and mild anterom edial displacement in cast. A distal shaft fibular fracture demonstrate similar angulation and displacement. The proximal tibia and fibula are intact. There is no knee joint effusion. IMPRESSION: Angulated and mi ldly displaced distal shaft fractures of the left tibia and fibula. Consultation Notes No Data Provided for This Section Discharge Summaries No Data Provided for This Section History and Physicals No Data Provided for This Section Vital Signs Vital Sign Value Date Comments Source Respitory Rate 20 09/17/2018 [facility] Heart Rate 104 09/17/2018 [facility] [place] Systolic (mm Hg) 112 09/17/2018 [facility] dical [place] Diastolic (mm Hg) 56 09/17/2018 [facility] Temperature Oral (F) 98.0 F 09/17/2018 [facility] Temperature Oral (F) 97.7 F 09/17/2018 [facility] Heart Rate 81 09/17/2018 [facility] Systolic (mm Hg) 112 09/17/2018 [facility] dical Center Diastolic (mm Hg) 59 09/17/2018 [facility] edical Center Respitory Rate 16 09/17/2018 [facility] wali Center Respitory Rate 18 09/17/2018 [facility] Heart Rate 90 09/17/2018 [facility] Systolic (mm Hg) 94 09/17/2018 [facility] dical Center Diastolic (mm Hg) 52 09/17/2018 [facility] edical Center Temperature Oral (F) 98.1 F 09/17/2018 [facility] BMI Calculated 19.34 09/15/2018 [facility]ali Center Weight 46.42 09/15/2018 [facility] Height 154.94 cm 09/15/2018 [facility] Height 180.34 cm 09/15/2018 [facility] BMI Calculated 14.26 09/15/2018 [facility]ali Center Weight 46.364 09/15/2018 [facility] Respitory Rate 20 06/07/2015 [facility] wali Center Systolic (mm Hg) 154 06/07/2015 [facility] dical Center Diastolic (mm Hg) 67 06/07/2015 [facility] edical Center Temperature Oral (F) 98.1 F 06/07/2015 [facility] Systolic (mm Hg) 152 06/06/2015 [facility] dical Center Diastolic (mm Hg) 67 06/06/2015 [facility] edical Center Systolic (mm Hg) 145 06/06/2015 [facility] dical Center Diastolic (mm Hg) 66 06/06/2015 [facility] edical Center Temperature Oral (F) 97.4 F 06/06/2015 [facility] Temperature Oral (F) 98.0 F 06/06/2015 [facility] Respitory Rate 18 06/06/2015 [facility] wali Center Respitory Rate 20 06/06/2015 [facility] Center BMI Calculated 16.82 06/02/2015 [facility]ali Center Height 177.8 cm 06/02/2015 [facility] Center Weight 53.182 06/02/2015 [facility] Weight 54.545 06/02/2015 [facility] Height 170.18 cm 06/02/2015 [facility] BMI Calculated 18.83 06/02/2015 [facility] Center Heart Rate 89 08/03/2014 [facility] Diastolic (mm Hg) 50 08/03/2014 [facility] Systolic (mm Hg) 100 08/03/2014 [facility] Respitory Rate 20 08/03/2014 [facility] Weight 44.091 08/03/2014 [facility] BMI Calculated 13.95 08/03/2014 [facility] Height 177.8 cm 08/03/2014 [facility] Respitory Rate 16 07/15/2014 [facility] Medi wali Center Heart Rate 75 07/15/2014 [facility] Center Systolic (mm Hg) 119 07/15/2014 [facility] dical Center Diastolic (mm Hg) 53 07/15/2014 [facility] edical Center Diastolic (mm Hg) 51 07/15/2014 [facility] edical Center Systolic (mm Hg) 106 07/15/2014 [facility] dical Center Respitory Rate 14 07/15/2014 [facility] Medi wali Center Diastolic (mm Hg) 50 07/15/2014 [facility] edical Center Systolic (mm Hg) 112 07/15/2014 [facility] dical Center Respitory Rate 16 07/15/2014 [facility] wali Center Heart Rate 67 07/15/2014 [facility] Center BMI Calculated 15.24 07/15/2014 [facility] Medi wali Center Weight 45.455 07/15/2014 [facility] Height 172.72 cm 07/15/2014 [facility] BMI Calculated 15.24 07/13/2014 [facility] Medi wali Center Height 172.72 cm 07/13/2014 [facility] Weight 45.455 07/13/2014 [facility] Center Systolic (mm Hg) 106 12/30/2013 [facility] dical Center Diastolic (mm Hg) 59 12/30/2013 [facility] edical Center Respitory Rate 20 12/30/2013 [facility] Medi wali Center Temperature Oral (F) 98.9 F 12/30/2013 [facility] Systolic (mm Hg) 110 12/30/2013 [facility] dical Center Diastolic (mm Hg) 52 12/30/2013 [facility] edical Center Temperature Oral (F) 98.7 F 12/30/2013 [facility] [place] Temperature Oral (F) 99.3 F 12/30/2013 [facility] [place] Diastolic (mm Hg) 51 12/30/2013 [facility] edical Center Systolic (mm Hg) 111 12/30/2013 [facility] dical Center Respitory Rate 18 12/30/2013 [facility] Medi wali Center Respitory Rate 18 12/30/2013 [facility] Medi wali Center Weight 50 12/27/2013 [facility] Height 160.02 cm 12/27/2013 [facility] Weight 50 12/27/2013 [facility] Heart Rate 108 12/27/2013 [facility] Systolic (mm Hg) 125 04/26/2013 [facility] dical Center Diastolic (mm Hg) 55 04/26/2013 [facility] edical Center Respitory Rate 18 04/26/2013 [facility] wali Center Diastolic (mm Hg) 55 04/26/2013 [facility] edical Center Systolic (mm Hg) 124 04/26/2013 [facility] dical Center Respitory Rate 17 04/26/2013 [facility] wali Center Respitory Rate 19 04/26/2013 [facility] wali Center Diastolic (mm Hg) 64 04/26/2013 [facility] edical Center Systolic (mm Hg) 140 04/26/2013 [facility] dical Center Heart Rate 70 04/26/2013 [facility] Heart Rate 70 04/26/2013 [facility] Height 180.34 cm 04/26/2013 [facility] Weight 54.545 04/26/2013 [facility] Encounters Location Location Encounter Encounter Reason Attending ADM DC Stat us Source Details Type Number For Visit Provider Date Date [facility] DS [id number] PERIPHERA ALI 04/[address] [facility] Medica l [place] ARTERIAL FARD Center DISEASE [facility] Inpatient [id number] PERIPHERA ALI 12/27 12/[address] [facility] AZIZZADEH /2013 Medica l Center ARTERIAL Center DISEASE, AUDIT [id number] 02/23 02/24 [place] /[place] FUP, [id number] 03/02 02/24 [place] Provider: /2013 Physici a ROUTT,MILTO ns N, Status: Pen, Time: 9:30 AM [facility] [id number] Oliver 07/15 07/16 M [facility] Surgery Mello /2013 [facility] Outpatient [id number] Zayra 08/03 08/04 MOISES Killbuckcarlos [place] [facility] [id number] Ali 06/03 06/07 [facility]2014 [facility] Outpatient [id number] Federico 11/28 11/29 [facility] /2015 [facility] Inpatient [id number] Hermila 09/15 09/17 [facility] Geraldo /2017 [facility] Procedures Procedure Code Date Perfomer Comments Source Closed reduction [id number] 02/15/[address] [facility] fracture of [facility] tibia and fibula [place] with internal fixation AKA - Above knee [id number] 11/17/2010 [facility] Excision of lamina [id number] 11/17/2000 [place] as of lumbar vertebra [facility] Hysterectomy [id number] 11/17/1968 [facility] Breast biopsy and [id number] 11/17/[facility] Cataract surgery [id number] [facility] Cystectomy<sup>1</ [id number] pt denies [place] as sup> procedure [facility] External fixation [id number] [facility] Mouth [id number] teeth removed [facility] operation<sup>2</s Medica l up> Center Pain [id number] insertion of [facility] control<sup>3</sup pain control Medi wali > pump- for Center dilaudid AKA - Above knee [id number] [facility] Breast biopsy and [id number] [facility] Cataract surgery [id number] [facility] Cervical [id number] [facility] laminectomy [facility] Cystectomy [id number] [facility] Hysterectomy [id number] [facility] Mouth operation [id number] [facility] Pain control [id number] [facility] Assessment and Plan Assessment and Plan Date Source Extracted from:Title: Orthopaedic Rounding Note 09/17/2018 [facility] Author: Remedios Child RESIDENT PHYSICIAN IN RADIOLOGY Date: 09/17/18 Progress Note - Daily [facility] mpleted: Sep, 12:26 by MateuszRemedios [facility] RM: [id number] - 01, [id number] YESSICA GOOD 77y (: 1940) F Attending: Erendira Jasmine DO Service: Internal Medicine Reason for Admission: L FEMUR FX Working DRG: Code status: Full Code Current diet: Isolation: No Isolation/Standard Precautions Allergies: aspirin, penicillins SUBJECTIVE doing well; no complaints; resting comfortably OBJECTIVE alert, oriented in no apparent distress Bilateral amputee- surgical dressings are c/d/i Vitals Tmp(F) Pulse BP RR SpO2 FIO2 09/17 11:42 97.7 81 112/59 16 98 --- 09/17 10:25 ---- --- ----- -- --- 24% 09/17 10:24 ---- --- ----- -- 96 24% 09/17 07:57 98.1 90 94/52 18 97 --- 09/17 03:36 97.6 98 106/62 16 94 --- 24 Hr Tmax: 98.3F (36.83c) at 09/16 20:3 1 Vital Signs are the last 5 in the past 48 hours. Date Wt(kg) Wt(lb) Ht(cm) Ht(in) Method 09/15 46.42 102.12 154.94 61.00 Kathrine/Sta 09/14 (initial) 46.36 102.00 Estimated 09/14 180.34 71.00 Stated I&O Record In Out Bal 09/17 24hr Tot 202 0 202 09/16 24hr Tot 1485 0 1485 Medications (28) Active Scheduled Meds (18): 09/16/18 ALPRAZOLam 0.25 mg PO BID 09/16/18 DULoxetine (Cymbalta) 60 mg PO Daily 09/15/18 acetaminophen 650 mg PO Q6Hnow 09/16/18 albuterol 2.49 mg NEB RQ6H 09/16/18 budesonide (Pulmicort Respules) 0.25 mg NEB Q12H 09/15/18 calcium-vitamin D (calcium-lorna min D 500 mg-400 intl units oral tablet, chewable) 1 tab CHEW BID 09/15/18 docusate 100 mg PO BID 09/15/18 enoxaparin 30 mg SUB-Q [id number] 09/16/18 ergocalciferol (ergocalciferol 50,000 intl units oral capsule) 50,000 IntlUnit PO Q7D 09/15/18 famotidine (Pepcid) 40 mg PO Bedtime 09/15/18 gabapentin 300 mg PO Q8Hnow 09/15/18 ibuprofen (ibuprofen 100 mg/5 mL oral suspension) 4 00 mg PO Q6H 09/16/18 levothyroxine (Synthroid) 75 microgram PO Q630AM 09/15/18 (Suspended) metoprolol (metoprolol tartrate) 25 mg PO Q12H 09/15/18 (Suspended) mirtazapine (Remeron) 15 mg PO Bedtime 09/15/18 polyethylene glycol 3350 17 gm PO Daily 09/15/18 pregabalin (Lyrica) 100 mg PO TID 09/15/18 senna 17.2 mg PO Bedtime Unscheduled Meds (2): 09/15/18 influenza virus vaccine, inacti vated (influenza virus vaccine, inactivated high-dose preservative-free intramuscular suspension) 0.5 mL IM ONCALL 09/15/18 pneumococcal 13-valent vaccine 0.5 mL IM ONCALL PRN Meds (8): 09/15/18 Dextrose 50% in Water IV (Dextrose 50% Syringe) 12. 5 gm IVP PRN 09/15/18 Dextrose 50% in Water IV (Dextrose 50% Syringe) 25 gm IVP PRN 09/15/18 albuterol-ipratropium 3 mL NEB RQ6H 09/15/18 bisacodyl 10 mg WA Daily 09/15/18 glucagon 1 mg IM PRN 09/15/18 ondansetron 4 mg IVP Q8H 09/15/18 ondansetron 4 mg IVP Q8H 09/15/18 oxyCODONE (oxyCODONE 5 mg/5 mL oral solution) 2.5 m g PO Q6H One Time Meds: None Continuous Infusions: None IMPRESSION S/P L Femur rIMN, CRPS L Femoral Neck POD 2- Elijah RECOMMENDATIONS Weightbearing Status: Nonweightbearing Left Lower Extremity Dressing: Keep clean, dry, intact until postoperative day 5, then may change every other day and as needed if soiled; dressing changes should consist of dry gauze pad and tape or gentle MONALISA wrap. Range of motion as tolerated for left lower extremity. Followup: Call [phone] to schedule postop appointment with Dr. Nava's office on 10/01/2018 Extracted from:Title: History and Physical Author: Kierra Rojas DO Date: 09/15/18 77 year old female with fall from wheelchair resulting left femur fracture 1.Femur fracture(S72.90XA) ORS following. NWB LLE. Clear liquid ING EST protocol. Right IMN left femur in AM. PT/OT. pain control. Ordered: Admit/Condition, 09/15/18 0:20:00 CDT, S tatus: Inpatient, Acute, Location: 04/24 [place], Expected LOS: 2 Midnights, Hermila Chow MD, Admit MD Review/Approve Yes, Isolation: No Isolation/Standard Precautions 2.Leukocytosis(D72.829) reactive secondary to procedure. 3.Nicotine dependence(F17.200) Discussed cessation. Patient quit 2 weeks ago. Refused nicot ine patch. 4.Malnutrition(E46) nutrition consult appreciated. 5.Emphysema/COPD(J43.9) No active flare. Start duonebs. 6.PVD - Peripheral vascular disease(I73.9) resulting in right AKA.Patient is allergic to ASA. 7.Hypothyroid(E03.9) Do not treat at this time. Patient canno t recall medication. She states she does not have this, however takes medication for this. 8.Chronic GERD(K21.9) PPI 9.Osteoporosis(M81.0) 10.Pre-op examination(Z01.818) 1) IMN of left femur/ low to moderate ri sk procedure. Numerus history of prior surgeries 2) No Medical issues that may interfere with surgery 3) No Significant findings on physical exam 4) Less than 4 METSExercise tolerance (METS) 5) Imaging: EKG unremarkable. no heart f ailure therefore no need for ECHO, CXR reports atelectasis. 6) No Outpatient table runner 7) Noknown stress test or coronary angiogram date / findings 8) No Acute issues that need to be addressed before surgery. 9) RCRI score of0 with 0.4 % risk of major adverse cardiac e vent. 10) Documentation that risks and benefit s will be discussed with patient &/or family by anesthesia/ortho teams 11) No Further workup ordered and indication. Patient has no active respiratory exacerbation that is of co ncern. [facility] did not send medication li st with patient. Patient does not recall list of medications at all. Please contact skilled nursing for medication information. At this time medication reconciliation cannot be completed. [place] [facility] is primary serv ice. Please page [phone] for questions. Lovenox Plan for OR in AM Extracted from:Title: Clinical Document Author: Hayden Ragland MD Date: 09/14/18 ORS Trauma Consult History and Physical Reason for Consult: Left distal femur fx Source of Consult: ED Consulting Physician: Dr. Ruiz Orthopaedic Attending: Dr. Nava Date of Service: 09/14/18 CC: I fell out of my wheel chair HPI: The pt is a 77 yo F s/p fall out of wheel chair while she was trying to get a movie from her friend's room on 09/09/18 landing on her left knee. She has a prior L BKA done for infection and no nunion as well as a right AKA done for p eripheral vascular disease. She landed on her left knee and had pain and recently went to the ED after her pain did not improve. She was seen at [facility] and tr ansferred to [facility] for a higher level of care. She denies any numbness, tingling, or any other injuries. She lives in a skilled nursing and is wheel chair bound. She has knee contractures that her therap ist works on and she says she can normal ly get to 45 degrees, but her knee is persistently flexed at baseline. 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 Whitley in 2014, meningioma removal, hysterctomy, appendectomy, bilateral carpal tunnel surgery, cholecystectomy. Medications: see MAR Allergies: Aspirin, penicillin Review of Systems: Gen: Denies fever/chills/night sweats. HEENT: Denies vision change, sore throat CV: Denies CP, Palpitations Resp: Denies SOB, wheezing, cough GI: Denies Abd pain, N/V/D/Constipation. Denies incontinence . : Denies urinary retention, urgency, burning, discharge. Back/Spine: Denies pain. Neuro: Denies numbness, tingling, headaches, weakness in ext remities. Integumentary: Denies open wounds, rashes, muñoz. Musculoskeletal: Denies all but HPI. All other systems negative except HPI. Social History: Tobacco: quit smoking 1 week ago EtOH: Denies Illicit drugs: Denies Family History: Non-contributory Vitals Tmp(F) Tmp(C) Ttype B P MAP Pulse RR SpO2 FIO2 ETCO2 09/14 21:41 98.6 37.00 oral 120/56 81 76 26 97 --- --- 09/14 21:07 ---- ---- ---- 1 --- --- 16 94 --- 0 09/14 20:56 98.7 37.06 oral 128/60 --- 78 14 94 --- --- 24 Hr Tmax: 98.7F (37.06c) at 09/14 20:5 6 24 Hr Tmin: 98.6F (37.00c) at 09/14 21:41 36 Hr Tmax: 98.7F (37.06c) at 09/14 20:5 6 36 Hr Tmin: 98.6F (37.00c) at 09/14 21:41 Exam: Gen: A/Ox3, NAD Resp: Breathing unlabored CV: Distal pulses palpated, RRR Abd: NT, ND Pelvis: Nontender, stable to lateral compression stress RUE: Inspection: No erythema or ecchymosis. N o tenderness, no obvious abnormalities, no open wounds. Compartments soft and compressible, no pain to passive stretch Sensation: sensation present to light touch m/r/u n Motor: intact AIN/PIN/Ulnar in hand; Abl e to flex thumb IP, extend thumb, abduct/cross fingers. 5/5 Wrist flex/ext; 5/5 Elbow flex/ext; 5/5 Shoulder ABd,Flex Vascular: 2+ radial pulse palpated, BCR all fingers <2 sec. LUE: Inspection: No erythema or ecchymosis. N o tenderness, no obvious abnormalities, no open wounds. Compartments soft and compressible, no pain to passive stretch Sensation: sensation present to light touch m/r/u n Motor: intact AIN/PIN/Ulnar in hand; Abl e to flex thumb IP, extend thumb, abduct/cross fingers. 5/5 Wrist flex/ext; 5/5 Elbow flex/ext; 5/5 Shoulder ABd,Flex Vascular: 2+ radial pulse palpated, BCR all fingers <2 sec. RLE: Inspection: Well healed AKA, skin intact, no open wounds, co mp s/c. Sensation: intact around distal stump Motor: Able to flex/extend hip Vascular: skin pink, well perfused around distal stump LLE: Inspection: Well healed BKA, swollen, skin intact, no open w ounds, comp s/c. Sensation: intact around distal stump Motor: Able to flex/extend hip, weak knee flexion/extension Vascular: skin pink, well perfused around distal stump Imaging: Xrays and CT of the left femur show a di stal femur fracture without extension into the joint Assessment and Plan: Patient is a 77 yo F s/p fall from wheel chair sustaining L closed distal femur fx - Baseline knee contractures, unable to place in knee immobilizer, pt comfortable, placed pillow under knee - Weight bearing status: NWB LLE - Antibiotics: None - Pain control - DVT PPx: TEDS/SCD lovenox - PT: consulted - Admit to: Hospitalist - Pending ORS surgeries: rIMN L femur 09/15/18 - Dispo: NPO for OR tomorrow pending medical optimization Extracted from:Title: HVI STS Discharge Note 06/07/2015 [facility] Author: Myles Bernstein MD Date: 06/06/15 Discharge Information Discharge Summary Information: Admitted 06/02/2015, Discharged 06/06/2015, Referring physician for admission, Consulting physician, Admitting diagnosis, Discharge medications (see med rec, order sheet sent with patient). Admitting physician: Federico Wisdom MD. Discharge diagnosis: Atheroscleroti c PVD with ulceration (ICD9 440.23, Working, Medical), Status post femoral-popliteal bypass surgery (ICD9 V45.89, Working, Medical), S/p angioplasty (ICD9 V45.82, Working, Medical). Discharge Plan Discharge Summary Plan Discharge Status: stable. Discharge instructions given: to patient. Discharge disposition: [facility]:. Prescriptions: reviewed with patient, Michael hernandez of care form has been filled out, patient with no new prescriptions as she is already on plavix and aspirin.. Extracted from:Title: CV Surgery Author: Myles Bernstein MD Date: 06/06/15 Progress Daily [facility] mpleted: May, 09:51 by Myles Bernstein MD RM: CVIM - 21, CVIMU ILYA GOOD 74y (: 1940) F Attending: Federico Wisdom MD Kristofer ne: Service: Thoracic/Cardiac [place] Service Reason for Admission: PERIPHERAL ARTERIAL DISEASE AND LEFT L OWER EXTRMEITY UL Working DRG: Other vascular procedures w CC Code status: Full Code [Ordered] Current diet: Isolation: None Documented Allergies: aspirin, penicillins SUBJECTIVE Patient states" I just want to go back t o the skilled nursing, I dont want to see anymore doctors." Patient denies pain this AM. Deneis N/V and abdominal pain. OBJECTIVE Physical Exam: Gen: patient awake in her bed watching television as I enter ed this morning. Ext: LLE not excessively tender this mor spike. Dopplerable signal heard on LLE over AT. Right AKA. Medial aspect of the leg at the bypass site, all incisions are clean, dry and intact. The dressing cover ing he foot was undressed and the patien t was noted to have a roughly 1.5 inch by 1.5 inch black eschar on the bottom of her left foot over a pressure point. This was present prior to admission. CV: RRR Chest: CTABL Psych: patient alert this AM Signal present LLE Anterior tibial artery Afebrile VSS ASSESSMENT and EXAM Bonnie Good is a 74 F POD4 s/p Left femoral to below knee popliteal artery bypass with cryopreserved reversed greater saphenous vein, LLE angiogram and Left common femoral artery endarterectomy. Left foot ulcer was present prior to adm ission and its appearance is documented in the [...] Day 5 of bactrim for UTI: Patient with out true UTI by defintion as she has less than 10^5 CFU, also patient is resistent to bactrim thus will D/C antibiotics as patient does not have true UTI and sensitivities returned today. - [facility] transferred back [facility] to follow up with Dr. Frederick (podiatry) as outpatient: Dr. Frederick has agreed to se patient - Patient to follow up with Dr. Enrique jesus in 2 weeks in [place], details in discharge info. Ready for Discharge (Yes/No)? Anderson still necessary (Yes/No): Line still necessary (Ye s/No): 24hr Labs 06/06 0346 Troponin-T <0.010 Glucose [...] 0.6 Eosinophils # 0.2 Basophils # 0.1 06/05 2128 Total CK 246 H Troponin-I <0.02 [...] 24 Hr Tmax: 99.1F (37.28c) at 06/05 16:2 8 Vital Signs are the last 5 in [...] C) 500 mg PO Daily 06/02/15 budesonide-formoterol (budesoni de-formoterol 160 mcg-4.5 mcg/inh inhalation aerosol with adapter) 2 inhalation INHALATION RBID 06/03/15 calcium-vitamin D (calcium-lorna min D 500 mg-200 intl units oral tablet) 1 tab PO Daily 06/03/15 clopidogrel (Plavix) 75 mg PO Daily 06/03/15 docusate 100 mg PO BID 06/02/15 enoxaparin 40 mg SUB-Q [id number] 06/03/15 folic acid 1 mg PO Daily 06/03/15 levothyroxine (Synthroid) 75 microgram PO [id number] 06/03/15 multivitamin 1 tab PO Daily 06/05/15 nicotine 7 mg TOP Daily 06/03/15 pantoprazole (Protonix) 40 mg PO BID 06/06/15 remove patch 1 patch TOP Daily 06/04/15 sulfamethoxazole-trimethoprim ( sulfamethoxazole-trimethoprim DS 800 mg- 160 mg oral tablet) 1 tab PO Q12H 06/03/15 tiotropium (Spiriva 18 mcg inha lation capsule) 18 microgram [address]aily Unscheduled Meds: None PRN Meds (22): 06/04/15 ALPRAZolam (ALPRAZOLam) 1 mg PO TID 06/05/15 acetaminophen-hydrocodone ([place] 7.5/325 oral table t) 1 tab PO Q6H 06/03/15 calcium gluconate + Sodium Chlo ride 0.9% IV 100 mL 3 gm IVPB PRN 130 ml/hr 06/03/15 calcium gluconate + Sodium Chlo ride 0.9% IV 80 mL 2 gm IVPB PRN 100 ml/hr 06/02/15 docusate (Colace 100 mg oral capsule) [...] 50 ml/hr 06/03/15 potassium phosphate + Sodium Ch loride 0.9% IV 250 mL 15 mmol IVPB PRN 63.75 ml/hr 06/03/15 potassium phosphate + Sodium Ch loride 0.9% IV 250 mL 30 mmol IVPB PRN 65 ml/hr 06/03/15 potassium phosphate-sodium phos phate (potassium phosphate-sodium phosphate 250 mg-278 mg-164 mg oral powder) 2 pkt PO PRN 06/04/15 senna (senna 8.6 mg oral tablet) 8.6 mg PO Bedtime 06/03/15 sodium phosphate + Sodium Chlor nancy 0.9% IV 250 mL 15 mmol IVPB PRN 63.75 ml/hr 06/03/15 sodium phosphate + Sodium Chlor nacny 0.9% IV 250 mL 30 mmol IVPB PRN 65 ml/hr 06/04/15 tramadol (Ultram 50 mg oral tablet) 50 mg PO Q6H One Time Meds: None Continuous Infusions: None Plan of Care Plan of Care Date Source [U] XRAY ANKLE MIN 3 VWS LEFT 02/24/2014 [facility] [place] [id number] 03/02/2014 Routine Social History Social History Date Source Social History TypeResponse 05/04/2014 [facility] Alcohol Use: Past Smoking Status Current every day smoker, Type: Cigarett es, Previous treatment: None, Ready to change: No, Concerns about tobacco use in household: Yes, Exposure to Tobacco Smoke Lives with someone who smokes, Cigarett e Smoking Last 365 Days Yes, Reg Smoking Cessation Counselin g Yes Social History TypeResponse 05/04/[address] [facility] Alcohol Past Smoking Status Current every day smoker; Type: Cigarett es; Previous treatment: None; Ready to change: No; Concerns about tobacco use in household: Yes; Lives with someone who smokes; Cigarette Smoking Last 365 Days Ye s; Reg Smoking Cessation Counseling Yes; Tobacco use per day : 4; entered on: 09/14/18 Current Every Day Smoker 02/24/2014 [facility] (305.1); (Active) Never Drank Alcohol (Active) Family History No Data Provided for This Section Advance Directives Order Name Results Value Date Source Advance Directives Advance Directives No Advance 02/24/2014 [facility] Directives available. Functional Status No Data Provided for This Section
[2020-09-21] MEDS ORDERED: NA CHLORIDE 0.9% 1,000 ML ONE ×2 (14:21→15:56)
[2020-09-21] MEDS ORDERED: ACETAMINOPHEN 650MG/RECT SUPP PR ONE (14:21)
[2020-09-21 14:23] LABS: Arterial Blood Carboxyhemoglob 1.3 % (0-1.5); Blood Gas Oxyhemoglobin 86.4 % (94-97); Blood O2 Saturation 88.5 % (92-98.5)
[2020-09-21 14:37] LABS: Absolute Lymphocytes (CBC) 0.3 K/uL (0.7-4.9); Basophils % 0.2 % (0-1.3); Hematocrit 28.8 % (36.0-45.0); Lymphocytes % 3.8 % (15.3-44.8); MPV 8.2 fL (7.6-11.3); RBC Red Blood Cell Count 3.53 M/uL (3.86-4.86)
[2020-09-21 14:44] LABS: Protime INR 1.48
[2020-09-21 14:54] LABS: Albumin 2.2 g/dL (3.4-5.0); Bilirubin Direct 0.5 mg/dL (0-0.2); Bilirubin Total 0.6 mg/dL (0.2-1.0); Potassium 3.3 mmol/L (3.5-5.1); Protein, Total 6.4 g/dL (6.4-8.2)
[2020-09-21 14:58] LABS: Troponin (Emerg Dept Use Only) 0.9 ng/mL (0.0-0.045)
--- NOTE | 2020-09-21 15:10 | RAD REPORT ---
EXAM DESCRIPTION: RAD - Chest Single View - 09/21/2020 2:44 pm CLINICAL HISTORY: SOB Chest pain. COMPARISON: Chest Single View dated 12/19/2018; Chest Single View dated 12/14/2018; Chest Single View d ated 04/26/2016; Chest Single View dated 03/12/2016 FINDINGS: Portable technique limits examination quality. Emphysematous changes are present throughout the lungs which are underinflated. Particular opacity in the right lung base is seen suggesting mild infiltrate or aspiration. The heart is mildly enlarged i n size with aortic atherosclerosis. Cervical hardware plate is present.
[2020-09-21 15:24] LABS: Urine Blood 3+ (NEG); Urine Glucose NEGATIVE (NEG); Urine Protein 2+ (NEG); Urine Specific Gravity 1.015 (1.005-1.030); Urine pH 5.5 (5.0-7.0)
[2020-09-21] MEDS ORDERED: CEFEPIME 1 GM/100 ML BAG IV ONE (15:37)
[2020-09-21] MEDS ORDERED: ACETAMINOPHEN 325 MG TABLET ONE (15:56)
[2020-09-21] MEDS ORDERED: VANCOMYCIN/NS 1 gm 1 GM/250 ML BAG IVPB ONE (16:00)
[2020-09-21 16:04] LABS: Urine Bacteria <20 /HPF (<20); Urine Culture Reflex Order REFLEXED; Urine Mucus 2+ /HPF (NONE SEEN)
--- NOTE | 2020-09-21 16:53 | ER ---
Nurse's Notes [facility] Name: Bonnie Good Age: 79 yrs Sex: Female : 1940 Arrival Date: 09/21/2020 Time: 13:58 Bed 3 Private MD: Diagnosis: Other sepsis;Pneumonia due to other specified infectious organisms;Anemia in chronic diseases classified elsewhere;Acute kidney failure Presentation: 09/21 13:58 Chief complaint: EMS states: Pt was found unresponsive by shelter staff, RR 30, aa5 and O2 sat of 83% RA. EMS reports initial BP upon arrival was 90/60 and HR 150-180, shelter staff reported pt c/o RLQ pain x 2-3 days ago. EMS reports administering 500cc NS bolus and FSBG 143, Temperature 100.5F. 22 G to L FA and 20G to R AC by EMS. 13:58 Transition of care: patient was received from another setting of care (long-term care [facility]. 13:58 Acuity: ANDREINA 2 aa5 13:58 Coronavirus screen: fever, Client presents with at least one sign or symptom that may aa5 indicate coronavirus-19. Standard/surgical mask placed on the client. Provider contacted for isolation considerations. Ebola Screen: Patient negative for fever greater than or equal to 101.5 degrees Fahrenheit, and additional compatible Ebola Virus Disease symptoms. Initial Sepsis Screen: Does the patient meet any 2 criteria? Yes Does the patient have a suspected source of infection? Yes:. Risk Assessment: Do you want to hurt yourself or someone else? Patient reports no desire to harm self or others. Onset of symptoms was September 21, 2020. 13:58 Method Of Arrival: EMS: [facility] aa5 Historical: - Allergies: 13:58 adhesive tape; aa5 13:58 Aspirin; aa5 13:58 PENICILLINS; aa5 - PMHx: 13:58 Anxiety; Cancer; Cellulitis; Chronic pain; chronic pulmonary edema; cognitive aa5 communication deficit; COPD; Depression; DYSPHAGIA; Fracture of left femur; GERD; Hypertension; Hypothyroidism; neuropathy in hands; osteomyelitis; Osteoporosis; PVD; septicemia; vitamin d deficiency; - PSHx: 13:58 R AKA; L BKA; aa5 - Immunization history:: Adult Immunizations unknown. - Social history:: Smoking status: unknown. Screenin:00 Abuse screen: Denies threats or abuse. Nutritional screening: No deficits noted. aa5 Tuberculosis screening: No symptoms or risk factors identified. Fall Risk Secondary diagnosis (15 points) impaired mobility, IV access (20 points). Mental Status- Overestimates/Forgets Limitations (15 pts.). Assessment: 14:00 General: Behavior is calm, cooperative. Pain: Complains of pain in right lower quadrant aa5 Pain does not radiate. Quality of pain is described as sharp, Pain began 2-3 days ago. Is continuous. Neuro: Level of Consciousness is alert, obeys commands, Drowsy. Oriented to person, place, time, situation. Cardiovascular: Heart tones S1 S2 present Rhythm is atrial fibrillation with rapid ventricular response. Respiratory: Reports shortness of breath at rest cough that is non-productive, Airway is patent Respiratory effort is unlabored, Respiratory pattern is tachypnea Breath sounds are diminished bilaterally. GI: Abdomen is round Bowel sounds present X 4 quads. Abdomen is tender to palpation in right lower quadrant Patient currently denies diarrhea, nausea, vomiting. : No signs and/or symptoms were reported regarding the genitourinary system. EENT: absence of teeth noted . Derm: Skin is dry, Skin is normal, Skin temperature is hot. Musculoskeletal: R AKA and L BKA noted. 14:30 Neuro: Level of Consciousness is alert, obeys commands, Pt drowsy, pt states feeling aa5 sleepy. Oriented to person, place, time, situation. Cardiovascular: Rhythm is atrial fibrillation with rapid ventricular response. Respiratory: Airway is patent Respiratory effort is unlabored, Respiratory pattern is tachypnea. Derm: Skin is dry, Skin is normal, Skin temperature is hot. 15:00 Reassessment: Pt resting with eyes closed, respirations are even and unlabored. Pt easy aa5 to arouse to verbal stimuli. A-fib with RVR on monitor. . 15:30 Reassessment: Pt resting in bed with eyes closed, respirations even and unlabored, skin aa5 is hot/pink/dry. Skin is intact. Pt cleaned of small amount of stool, clean brief applied. Pt easy to arouse to verbal stimuli. Pt states she remains feeling sleepy. . 16:00 Reassessment: Resting with eyes closed, pt currently denies SOB, denies pain. Easy to aa5 arouse to verbal stimuli. Respirations are even and unlabored. . 16:12 Reassessment: Pt to CT via stretcher, with oxygen. . aa5 17:15 Reassessment: Pt having runs of SVT that last approximately 5 to 10 seconds and rhythm aa5 rapidly returns to A-fib with RVR at 114-120bpm. PA was notified. Pt denies any complaints. Pt resting in bed with eyes closed, pt easy to arouse to verbal stimuli. . 17:27 Reassessment: Repeat EKG completed. aa5 17:45 Reassessment: Pt remains resting in bed with eyes closed, respirations even and aa5 unlabored, skin is warm/normal/dry. Pt easy to arouse to verbal stimuli. A-fib with RVR on monitor.. 18:20 Reassessment: Pt resting in bed with eyes closed, skin is pink/warm/dry. Equal and aa5 unlabored respirations. Pt easy to arouse to verbal stimuli, pt remains A\T\O x 4. A-fib with RVR on monitor. . 19:28 Reassessment: report given to [facility] ICU- JOLEEN Garay. mg2 19:58 Reassessment: report given to KETAN Crockett. patient aox4. IV intact. mg2 Vital Signs: 14:00 Weight 46 kg; aa5 14:00 BP 119 / 80; Pulse 150; Resp 30; Temp 101.8(O); Pulse Ox 100% on Non-rebreather mask; aa5 14:20 BP 108 / 56; Pulse 135; Resp 30 S; Pulse Ox 100% on Non-rebreather mask; aa5 14:40 BP 107 / 62; Pulse 132; Resp 24 S; Pulse Ox 100% on Non-rebreather mask; aa5 15:00 BP 104 / 58; Pulse 122; Resp 24 S; Pulse Ox 93% on 4 lpm NC; aa5 15:26 BP 97 / 50; Pulse 117; Resp 28; Temp 102.8(C); Pulse Ox 95% on 4 lpm NC; mh5 15:35 aa5 15:42 BP 91 / 54; Pulse 105; Resp 26; Temp 103.0(C); Pulse Ox 96% on 4 lpm NC; mh5 16:05 BP 100 / 37; Pulse 121; Resp 26 S; Temp 102.7(C); Pulse Ox 97% on 4 lpm NC; aa5 16:23 BP 118 / 90; Pulse 114; Resp 22 S; Temp 102.5(C); Pulse Ox 93% on 4 lpm NC; aa5 16:40 BP 103 / 58; Pulse 111; Resp 22 S; Temp 102.2(C); Pulse Ox 99% on 4 lpm NC; aa5 17:00 BP 105 / 51; Pulse 115; Resp 24 S; Temp 101.7(C); Pulse Ox 95% on 2 lpm NC; aa5 17:28 BP 94 / 49; Pulse 110; Resp 22 S; Temp 101.6(C); Pulse Ox 96% on 2 lpm NC; aa5 17:40 BP 90 / 40; Pulse 105; Resp 20 S; Temp 101.5(C); Pulse Ox 80% on 2 lpm NC; aa5 17:42 Pulse Ox 95% on 4 lpm NC; aa5 18:00 BP 99 / 53; Pulse 102; Resp 20 S; Temp 101.3(C); Pulse Ox 98% on 4 lpm NC; aa5 18:20 BP 100 / 64; Pulse 105; Resp 20 S; Temp 101.0(C); Pulse Ox 100% on 4 lpm NC; aa5 18:40 BP 101 / 58; Pulse 109; Resp 24 S; Temp 100.9(C); Pulse Ox 99% on 4 lpm NC; aa5 15:35 PA notified of increased temperature per criticore Anderson temperature. aa5 17:40 PA was notified of decreased BP. NS bolus ordered (see MAR) aa5 ED Course: 13:58 Patient arrived in ED. iw 13:58 Arm band placed on. aa5 14:02 EKG done, by ED staff, reviewed by Trung Harvey MD. aa5 14:03 Patrick Kramer PA is PHCP. cp 14:03 Trung Harvey MD is Attending Physician. cp 14:05 Carissa Muse, JOLEEN is Primary Nurse. aa5 14:26 Triage completed. aa5 14:44 Chest Single View XRAY In Process Unspecified. EDMS 15:24 Patient has correct armband on for positive identification. Placed in gown. Bed in low mh5 position. Call light in reach. Side rails up X2. Pillow given. case monitor on. Pulse ox on. NIBP on. 15:25 Initial lab(s) drawn, by ED staff, sent to lab. Urine collected: Anderson catheter 5 specimen, julisa colored, Flu and/or RSV swab sent to lab. Maintain EMS IV. Dressing intact. Site clean \T\ dry. Anderson cath inserted, using sterile technique, 16 Fr., by wv, urine specimen collected. 16:19 CT Chest Abdomen Pelvis W/O Contrast In Process Unspecified. EDMS 16:50 Prince Price MD is Hospitalizing Provider. cp 17:27 EKG done, by ED staff, reviewed by Trung Harvey MD. aa5 19:10 Report given to JOLEEN Giraldo. aa5 19:59 No provider procedures requiring assistance completed. Patient transferred, IV remains mg2 in place. Administered Medications: 14:15 Drug: Acetaminophen Suppository 650 mg Route: ID; aa5 15:47 Follow up: Response: No adverse reaction; Temperature is increased aa5 14:15 Drug: NS 0.9% (30 ml/kg) 30 ml/kg Route: IV; Rate: bolus; Site: right antecubital; aa5 15:10 Follow up: IV Status: Completed infusion; IV Intake: 1000ml ; Pt received NS 500cc aa5 bolus by EMS PLANER SETTER. 15:25 Drug: Cefepime 1 grams Route: IVPB; Rate: 200 ml/hr; Infused Over: 30 mins; Site: right aa5 antecubital; 16:00 Follow up: Response: No adverse reaction; IV Status: Completed infusion aa5 15:47 Drug: Tylenol 325 mg Route: PO; aa5 17:00 Follow up: Response: No adverse reaction; Temperature is decreased aa5 15:48 Drug: NS 0.9% 1000 ml Route: IV; Rate: 75 ml/hr; Site: left forearm; aa5 16:10 Drug: vancoMYCIN 1 grams Route: IVPB; Infused Over: 2 hrs; Site: right antecubital; aa5 18:10 Follow up: Response: No adverse reaction; IV Status: Completed infusion aa5 17:40 Drug: NS 0.9% 500 ml Route: IV; Rate: bolus; Site: right antecubital; aa5 18:20 Follow up: IV Status: Completed infusion; IV Intake: 500ml aa5 Intake: 15:10 IV: 1000ml; Total: 1000ml. aa5 18:20 IV: 500ml; Total: 1500ml. aa5 Outcome: 16:51 Decision to Hospitalize by Provider. cp 18:46 ER care complete, transfer ordered by MD. cp 19:58 Transferred by ground EMS [facility] form completed. mg2 19:58 Condition: good 19:58 Instructed on the need for transfer, Demonstrated understanding of instructions. 19:59 Patient left the ED. mg2 Signatures: Dispatcher [employer] EDMS Monica Lopes RN RN iw Carissa Muse RN RN [email or web address] Patrick Kramer PA PA cp Martinez, [facility] Enzo Garcia RN RN [facility] Charla Riddle RN RN [facility] Corrections: (The following items were deleted from the chart) 15:48 13:58 Chief complaint: EMS states: Pt was found unresponsive by shelter staff, RR aa5 30, and O2 sat of 83% RA. EMS reports initial BP upon arrival was 90/60 and HR 150-180, shelter staff reported pt c/o RLQ pain x 2-3 days ago. EMS reports administering 500cc NS bolus and FSBG 143, Temperature 100.5F. aa5 16:13 14:41 CORONAVIRUS+ drawn and sent. vg1 EDMA 16:17 14:00 Respiratory: Reports shortness of breath at rest cough that is non-productive, aa5 Airway is patent Respiratory effort is labored, Respiratory pattern is tachypnea Breath sounds are diminished bilaterally. aa5 18:32 15:10 IV Status: Completed infusion; IV Intake: 1000ml aa5 aa5 18:33 15:25 Initial lab(s) drawn, by ED staff, sent to lab. Urine collected: Anderson catheter aa5 specimen, julisa colored, EKG done, by ED staff, reviewed by Patrick DELCID Flu and/or RSV swab sent to lab. 5 18:41 17:00 BP 105 / 51; Pulse 115bpm; Resp 24bpm; Spontaneous; Pulse Ox 95% 4 lpm Nasal aa5 Cannula; Temp 101.7F Catheter; aa5 18:51 17:40 BP 90 / 40; Pulse 105bpm; Resp 20bpm; Spontaneous; Pulse Ox 88% 2 lpm Nasal aa5 Cannula; Temp 101.5F Catheter; PA was notified of decreased BP. NS bolus ordered (see MAR); aa5
--- NOTE | 2020-09-21 16:53 | EDPHYS ---
Physician Documentation [facility] Name: Bonnie Good Age: 79 yrs Sex: Female : 1940 Arrival Date: 09/21/2020 Time: 13:58 Bed 3 Private MD: ED Physician Trung Harvey HPI: 09/21 14:10 This 79 yrs old Female presents to ER via Unassigned with complaints of cp Altered Mental Status. 14:10 The patient presents with decreased responsiveness. Onset: The symptoms/episode cp began/occurred today. Associated signs and symptoms: Pertinent positives: abdominal pain, fever. Patient's baseline: Neuro: alert and fully oriented, Motor: no deficits, Ambulation: unable to walk, Speech: normal. 14:10 Current symptoms: In the emergency department the patient's symptoms have improved, cp moderately, is more alert. Historical: - Allergies: 13:58 adhesive tape; aa5 13:58 Aspirin; aa5 13:58 PENICILLINS; aa5 - PMHx: 13:58 Anxiety; Cancer; Cellulitis; Chronic pain; chronic pulmonary edema; cognitive aa5 communication deficit; COPD; Depression; DYSPHAGIA; Fracture of left femur; GERD; Hypertension; Hypothyroidism; neuropathy in hands; osteomyelitis; Osteoporosis; PVD; septicemia; vitamin d deficiency; - PSHx: 13:58 R AKA; L BKA; aa5 - Immunization history:: Adult Immunizations unknown. - Social history:: Smoking status: unknown. ROS: 14:12 Constitutional: Positive for fever. cp 14:12 Cardiovascular: Negative for chest pain. 14:12 Respiratory: Positive for cough. 14:12 Abdomen/GI: Positive for abdominal pain, Negative for nausea and vomiting, diarrhea, constipation. 14:12 Back: Negative for radiated pain. 14:12 : Negative for urinary symptoms. 14:12 Neuro: Negative for altered mental status. 14:12 All other systems are negative. Exam: 14:10 ECG was reviewed by the Attending Physician. cp 14:15 Head/Face: Normocephalic, atraumatic. cp 14:15 Constitutional: The patient appears in no acute distress, alert, awake, non-diaphoretic, non-toxic, well developed, well nourished, febrile. 14:15 Eyes: Periorbital structures: appear normal, Conjunctiva: normal, no exudate, no cp injection, Sclera: no appreciated abnormality, Lids and lashes: appear normal, bilaterally. 14:15 ENT: External ear(s): are unremarkable, Nose: is normal, Mouth: Lips: dry, Oral mucosa: cp dry, Posterior pharynx: Airway: no evidence of obstruction, patent. 14:15 Neck: ROM/movement: is normal, is supple, no meningismus, no nuchal rigidity. 14:15 Chest/axilla: Inspection: normal, Palpation: is normal, no crepitus, no tenderness. 14:15 Cardiovascular: Rate: tachycardic, Rhythm: irregular, Edema: is not appreciated, JVD: is not appreciated. 14:15 Respiratory: the patient does not display signs of respiratory distress, Respirations: labored breathing, that is mild, intercostal retractions, are absent, Breath sounds: rales, are not appreciated, decreased breath sounds, that are mild, throughout, rhonchi, are not appreciated. 14:15 Abdomen/GI: Inspection: abdomen appears normal, Bowel sounds: active, all quadrants, Palpation: soft, in all quadrants, mild abdominal tenderness, in the right lower quadrant, rebound tenderness, is not appreciated, involuntary guarding, is not appreciated. 14:15 Back: pain, is absent. 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 14:15 Skin: cellulitis, is not appreciated, no rash present. cp 14:15 Neuro: Orientation: to person, place \T\ time. Mentation: able to follow commands, slow to respond. Vital Signs: 14:00 Weight 46 kg; aa5 14:00 BP 119 / 80; Pulse 150; Resp 30; Temp 101.8(O); Pulse Ox 100% on Non-rebreather mask; aa5 14:20 BP 108 / 56; Pulse 135; Resp 30 S; Pulse Ox 100% on Non-rebreather mask; aa5 14:40 BP 107 / 62; Pulse 132; Resp 24 S; Pulse Ox 100% on Non-rebreather mask; aa5 15:00 BP 104 / 58; Pulse 122; Resp 24 S; Pulse Ox 93% on 4 lpm NC; aa5 15:26 BP 97 / 50; Pulse 117; Resp 28; Temp 102.8(C); Pulse Ox 95% on 4 lpm NC; mh5 15:35 aa5 15:42 BP 91 / 54; Pulse 105; Resp 26; Temp 103.0(C); Pulse Ox 96% on 4 lpm NC; mh5 16:05 BP 100 / 37; Pulse 121; Resp 26 S; Temp 102.7(C); Pulse Ox 97% on 4 lpm NC; aa5 16:23 BP 118 / 90; Pulse 114; Resp 22 S; Temp 102.5(C); Pulse Ox 93% on 4 lpm NC; aa5 16:40 BP 103 / 58; Pulse 111; Resp 22 S; Temp 102.2(C); Pulse Ox 99% on 4 lpm NC; aa5 17:00 BP 105 / 51; Pulse 115; Resp 24 S; Temp 101.7(C); Pulse Ox 95% on 2 lpm NC; aa5 17:28 BP 94 / 49; Pulse 110; Resp 22 S; Temp 101.6(C); Pulse Ox 96% on 2 lpm NC; aa5 17:40 BP 90 / 40; Pulse 105; Resp 20 S; Temp 101.5(C); Pulse Ox 80% on 2 lpm NC; aa5 17:42 Pulse Ox 95% on 4 lpm NC; aa5 18:00 BP 99 / 53; Pulse 102; Resp 20 S; Temp 101.3(C); Pulse Ox 98% on 4 lpm NC; aa5 18:20 BP 100 / 64; Pulse 105; Resp 20 S; Temp 101.0(C); Pulse Ox 100% on 4 lpm NC; aa5 18:40 BP 101 / 58; Pulse 109; Resp 24 S; Temp 100.9(C); Pulse Ox 99% on 4 lpm NC; aa5 15:35 PA notified of increased temperature per criticore Anderson temperature. aa5 17:40 PA was notified of decreased BP. NS bolus ordered (see JAN) aa5 MDM: 14:14 Patient medically screened. cp 17:18 ED course: Patient evaluated by DR Price in ED. Labs and radiology studies reviewed cp and request for transfer to facility with interventional radiology. Concern for intrarenal hemorrhage due to metastatic renal cancer. 17:20 Data reviewed: vital signs, nurses notes, lab test result(s), EKG, radiologic studies, cp CT scan, plain films, I have discussed the patient's presentation/case with the attending Emergency Department Physician;. 17:20 Test interpretation: by ED physician or midlevel provider: ECG. Response to treatment: cp the patient's symptoms have mildly improved after treatment. 18:05 Physician consultation: was contacted at 18:00, regarding regarding transfer, [facility] in the [place] consult, patient's condition, DR Kenyon, dry cleaning checker, will consult on patient. 18:25 Physician consultation: was contacted at 18:20, regarding regarding transfer, [facility] in the [place] patient's condition, DR Llanos, hospitalist, will be accepting physician. 18:45 Physician consultation: was contacted at 18:40, regarding regarding transfer, [facility] [place] consult, patient's condition, DR Spence, urologist, will consult on patient concerning renal carcinoma and intrarenal hemorrhage . 09/21 14:04 Order name: ABG; Complete Time: 14:58 09/21 14:58 Interpretation: Normal except: ABGPCO2 30.2; ABGPO2 57.5; ABGHCO3 16.1; ABGSO2 88.5; cp FCFB8BC 86.4; ABGTHB 8.9. 09/21 14:04 Order name: Basic Metabolic Panel; Complete Time: 15:04 09/21 15:04 Interpretation: Normal except: K 3.3; CO2 20; GLUC 116; BUN 35; CRE 3.21; GFR 14. 09/21 14:04 Order name: Blood Culture Adult (2) 09/21 14:04 Order name: CBC with Diff 09/21 14:59 Interpretation: Normal except: RBC 3.53; HGB 9.3; HCT 28.8; MCH 26.3; PLT 140; RDW cp 16.6; LUIS M% 95.6; LYM% 3.8; MN% 0.3; LYMA 0.3; MNA 0.0. 09/21 14:04 Order name: CPK; Complete Time: 15:04 09/21 14:04 Order name: Lactate; Complete Time: 14:58 09/21 14:04 Order name: LFT's; Complete Time: 15:04 09/21 14:04 Order name: Lipase; Complete Time: 15:04 09/21 14:04 Order name: Procalcitonin; Complete Time: 16:02 09/21 14:04 Order name: Protime (+inr); Complete Time: 14:58 09/21 14:04 Order name: Ptt, Activated; Complete Time: 14:58 09/21 14:04 Order name: Troponin (emerg Dept Use Only); Complete Time: 15:04 09/21 17:10 Interpretation: Abnormal: TROPED 0.90. 09/21 14:04 Order name: Urine Microscopic Only; Complete Time: 16:21 09/21 16:22 Interpretation: Normal except: UWBC 20-50; URBC 10-20; SQEPI 5-10. 09/21 14:04 Order name: Chest Single View XRAY; Complete Time: 15:16 09/21 14:04 Order name: Influenza Screen (a \T\ B); Complete Time: 16:21 09/21 14:18 Order name: Glucose, Ancillary Testing; Complete Time: 14:58 [facility] [place] 09/21 15:06 Order name: CT Chest Abdomen Pelvis W/O Contrast; Complete Time: 17:07 09/21 15:18 Order name: Urine Dipstick--Ancillary (enter results); Complete Time: 16:02 em1 09/21 16:05 Order name: Urine Culture [facility] [place] 09/21 17:22 Order name: SARS-COV-2 RT PCR; Complete Time: 17:56 EDKS 09/21 18:09 Order name: Lactate Sepsis 2 HR Follow-up; Complete Time: 18:10 EDKS 09/21 18:53 Order name: Manual Differential EDKS 09/21 14:04 Order name: Cath; Complete Time: 15:40 09/21 14:04 Order name: Accucheck; Complete Time: 14:22 09/21 14:04 Order name: Cardiac monitoring; Complete Time: 14:05 09/21 14:04 Order name: EKG - Nurse/Tech; Complete Time: 14:22 09/21 14:04 Order name: IV Saline Lock - Large Bore; Complete Time: 14:22 09/21 14:04 Order name: Labs collected and sent; Complete Time: 14:22 09/21 14:04 Order name: O2 Per Protocol; Complete Time: 14:22 09/21 14:04 Order name: O2 Sat Monitoring; Complete Time: 14:22 09/21 14:04 Order name: Urine Dipstick-Ancillary (obtain specimen); Complete Time: 15:40 09/21 17:18 Order name: EKG - Nurse/Tech; Complete Time: 17:54 aa5 EC:10 Rate is 133 beats/min. Rhythm is regular. SD interval is normal. QRS interval is cp normal. QT interval is normal. Interpreted by me. Reviewed by me. Administered Medications: 14:15 Drug: Acetaminophen Suppository 650 mg Route: SD; aa5 15:47 Follow up: Response: No adverse reaction; Temperature is increased aa5 14:15 Drug: NS 0.9% (30 ml/kg) 30 ml/kg Route: IV; Rate: bolus; Site: right antecubital; aa5 15:10 Follow up: IV Status: Completed infusion; IV Intake: 1000ml ; Pt received NS 500cc aa5 bolus by EMS DRAW PRESS OPERATOR. 15:25 Drug: Cefepime 1 grams Route: IVPB; Rate: 200 ml/hr; Infused Over: 30 mins; Site: right aa5 antecubital; 16:00 Follow up: Response: No adverse reaction; IV Status: Completed infusion aa5 15:47 Drug: Tylenol 325 mg Route: PO; aa5 17:00 Follow up: Response: No adverse reaction; Temperature is decreased aa5 15:48 Drug: NS 0.9% 1000 ml Route: IV; Rate: 75 ml/hr; Site: left forearm; aa5 16:10 Drug: vancoMYCIN 1 grams Route: IVPB; Infused Over: 2 hrs; Site: right antecubital; aa5 18:10 Follow up: Response: No adverse reaction; IV Status: Completed infusion aa5 17:40 Drug: NS 0.9% 500 ml Route: IV; Rate: bolus; Site: right antecubital; aa5 18:20 Follow up: IV Status: Completed infusion; IV Intake: 500ml aa5 Disposition: 20:05 Chart complete. 09/22 07:14 Co-signature as Attending Physician, Trung Harvey MD I agree with the assessment and kdr plan of care. Disposition: 09/21/20 18:46 Transfer ordered to Other Acute Care Facility. Diagnosis are Other sepsis, Pneumonia due to other specified infectious organisms, Anemia in chronic diseases classified elsewhere, Acute kidney failure. - Reason for transfer: Higher level of care. - Accepting physician is DR Llanos. - Condition is Fair. - Problem is new. - Symptoms have improved. Signatures: Dispatcher [employer] EDMS Trung Harvey MD MD [facility] Carissa Muse RN RN aa5 Patrick Kramer PA PA cp Enzo Garcia RN RN mg2 Corrections: (The following items were deleted from the chart) 09/21 14:24 14:10 Constitutional: The patient appears in no acute distress, alert, awake, cp non-diaphoretic, non-toxic, well developed, well nourished, febrile, cp 14:24 14:10 Head/Face: Normocephalic, atraumatic. cp cp 16:13 14:05 CORONAVIRUS+MR.LAB.BRZ ordered. EDMS EDMS 16:13 14:34 CORONAVIRUS+MR.LAB.BRZ ordered. EDMS EDMS 17:20 17:18 ED course: Patient evaluated by DR Mesfin garcia cp 18:01 16:51 Hospitalization Ordered by [facility] for Inpatient Admission. Preliminary cp diagnosis is Other sepsis; Pneumonia due to other specified infectious organisms; Urinary tract infection, site not specified. Bed requested for Telemetry/MedSurg (Inpatient). Status is Inpatient Admission. Condition is Fair. Problem is new. Symptoms have improved. cp 19:59 18:46 09/21/2020 18:46 Transfer ordered to Other Acute Care Facility. Diagnosis is mg2 Other sepsis; Pneumonia due to other specified infectious organisms; Anemia in chronic diseases classified elsewhere; Acute kidney failure. Reason for transfer: Higher level of care. Accepting physician is DR Llanos. Condition is Fair. Problem is new. Symptoms have improved. cp
--- NOTE | 2020-09-21 16:59 | RAD REPORT ---
EXAM DESCRIPTION: CT - Chest Abd Pelvis Wo Con - 09/21/2020 4:19 pm CLINICAL HISTORY: Chest and abdomen pain. abdominal pain;SOB COMPARISON: CHEST SINGLE VIEW dated 12/21/2015 TECHNIQUE: A limited noncontrast study was performed. All CT scans are performed using dose optimization technique as appropriate and may include automated exposure control or mA/KV adjustment according to patient size. FINDINGS: Diffuse COPD is present. Spiculated nodule is present in the left upper lobe measuring 16 x 13 mm. Airspace opacity/infiltrate is seen in both medial lung bases, greater on the left, likely d eveloping pneumonia.No pleural or pericardial effusion.Mildly prominent mediastinal lymph nodes are p resent including in the pretracheal region measuring 18 mm Noncontrast assessment of the liver demonstrates no focal mass or biliary dilatation. Cholecystectomy clips. The spleen, right adrenal gland are within normal limits. Pancreas is somewhat poorly defined and difficult to assess with pancreatic atrophy present. There is a 26 mm mass involving the left ad renal gland. Irregular solid mass is seen involving the upper pole of the right kidney measuring 7.4 x 5.4 cm. Hig h density fluid is present within the pelvicaliceal system on the right as well as the right ureter s uspected to represent blood product. There is moderate right-sided hydronephrosis and hydroureter. Mi ld left-sided hydronephrosis and hydroureter is present. Anderson catheter is present in the urinary adam dder. No bowel obstruction, free air, free fluid or abscess. Numerous colonic diverticulosis is present. Ao rtoiliac atherosclerosis. No pathologic lymphadenopathy in the abdomen or pelvis. Diffuse osteopenia is seen. Mild degenerative changes are present in the lower lumbar spine. Mild deg enerative anterolisthesis of L4 on 5. IMPRESSION: Solid mass lesion upper pole right kidney measuring 7.4 x 5.4 cm. This mass likely repre sents renal cell carcinoma.There is suspicion of high density blood within the right pelvicaliceal sy stem with moderate right hydronephrosis and hydroureter. 26 mm left adrenal mass may represent metastatic deposit. 16 x 13 mm left upper lobe spiculated nodule may represent a metastatic deposit or secondary lung catia shruti.
[2020-09-21 18:52] LABS: Blood Morphology Comment NOTED (NOT SEEN); Platelet Estimate ADEQ
[2020-09-21 18:53] LABS: Ovalocytes SLIGHT; Poikilocytosis SLIGHT
[2020-09-21 22:33] VITALS: BP 101/58; TEMP 100.9; O2SAT 99
== END 2020-09-21 19:59 ==
LOC: ER 13:56 → ERHOLD 16:48 → UNDOADMIN 16:48 → UNDODISIN 20:00
DX: A41.89 Other specified sepsis (principal); J16.8 Pneumonia due to other specified infectious organisms; N17.9 Acute kidney failure, unspecified; D64.9 Anemia, unspecified; Z20.828 Contact with and (suspected) exposure to other viral communicable diseases; C64.9 Malignant neoplasm of unspecified kidney, except renal pelvis; Z88.0 Allergy status to penicillin; Z88.6 Allergy status to analgesic agent; Z91.048 Other nonmedicinal substance allergy status; Z89.512 Acquired absence of left leg below knee; Z89.511 Acquired absence of right leg below knee
CPT/HCPCS: 96365; 96367; 93005 ×2; 87040 ×2; 87088; 85025; 87086; 80048; 36415; 82550; 87205 ×4; 85610; 82947; 80076; 83605 ×2; 85730; 87077 ×3; 87186 ×3; 84484; 83690; 84145; 87804 ×2; 71250; 74176; 71045; 82805; 51702; 99285; U0003; J3370; J0692; J7030 ×2; 81003; 81015